=== PATIENT | male | born 1960 | race Caucasian/White ===

== ENCOUNTER → 2018-04-25 06:58 | Outpatient (CLI) | payer OTHER, MEDICAID, SELFPAY ==
[2018-04-25 08:01] LABS: INR 3.5 (0.9-1.3); Prothrombin Time 37.8 SECONDS (10.1-12.7)
== END ==
PROVIDERS: Family Provider Family Medicine; PCP Family Medicine; Visit Provider Family Medicine
DX: D68.51 Activated protein C resistance (principal); Z79.01 Long term (current) use of anticoagulants
CPT/HCPCS: 36415; 85610

== ENCOUNTER → 2018-05-21 07:56 | Outpatient (CLI) | payer OTHER, MEDICAID, SELFPAY ==
--- NOTE | 2018-05-21 07:58 | DI.US.S_ITS ---
PROCEDURE: US PERIPH VENOUS LOW EXTREM RT INDICATIONS: THROMBOEMBOLISM OF DEEP VEINS RIGHT LOWER EXTREMIT TECHNIQUE: Real-time imaging, as well as color and pulse Doppler interrogation, were performed of the lower extremity deep veins from the inguinal ligament to the popliteal fossa. COMPARISON: None. FINDINGS: The deep veins in the greater saphenous and common femoral and profunda femoris region are normally compressible, and free of intraluminal thrombus. Color and pulse Doppler demonstrate normal phasic intraluminal flow in these vessels. Within the superficial femoral vein there is occlusion, with collateral flow beyond the area of occlusion, indicating likelihood of chronic venous thrombosis rather than acute as cause of this appearance. The popliteal vein is patent. IMPRESSION: Superficial femoral vein occlusive thrombus, with collateral flow crossing the area of deep vein occlusion. The appearance is more likely chronic than acute, but please correlate clinically to assist in differentiating between these possibilities. Dictated by: Dong Tirado M.D. on 05/21/2018 at 9:34 Approved by: Dong Tirado M.D. on 05/21/2018 at 9:36
== END ==
PROVIDERS: Family Provider Family Medicine; PCP Family Medicine; Visit Provider Family Medicine
DX: I82.411 Acute embolism and thrombosis of right femoral vein (principal); R25.2 Cramp and spasm
CPT/HCPCS: 93971

== ENCOUNTER 2018-06-01 09:01 | Emergency (ER) | payer OTHER, MEDICAID, SELFPAY ==
[2018-06-01 09:10] VITALS: BP 145/74; PULSE 69; RESP 16; TEMP 36.9; O2SAT 100
--- NOTE | 2018-06-01 10:06 | ED.EYEPROB ---
HPI - Eye Problem General Chief complaint: Eye Problems Stated complaint: SWOLLEN RIGHT EYE, PAIN IN EYE Time Seen by Provider: 06/01/18 09:05 Source: patient Mode of arrival: ambulatory Limitations: no limitations History of Present Illness HPI Narrative: 57-year-old male here for evaluation of right eye discomfort. Patient states that on Monday of this week he was sitting on his couch and had a sudden onset of here today miramontes in his eye. States that it continued for several days. At points had a foreign body sensation but at other points of was just more of an irritation and watery eye. Went to the walk-in clinic yesterday where he states that he was given a prescription for ?eye drops? and a oral antibiotic. He states that his insurance did not cover the eye drop so he did not fill that. He did take 2 doses of the oral antibiotics. He does not know the names of either of these medications. States that his symptoms have worsened. He states that yesterday at the walk-in clinic they did notice a ?black spot? in his eye that they could not get off. No photophobia. Does have some sinus congestion secondary to allergies. Related Data Previous Rx's Medication Instructions Recorded warfarin [Coumadin] 0 PO SEE INSTRUCTIONS #125 tab 04/09/18 olopatadine 0.1 % eye drops 1 drop EYE-RIGHT BID #5 ml 05/31/18 sulfamethoxazole 800 2 tab PO BID 10 Days #40 tab 05/31/18 mg-trimethoprim 160 mg tablet erythromycin 0.5 inch EYE-RIGHT QID 3 Days #1 06/01/18 gram Allergies Allergy/AdvReac Type Severity Reaction Status Date / Time No Known Drug Allergies Allergy Verified 05/31/18 17:22 Review of Systems Constitutional Denies fatigue, Denies fever(s) and Denies headache(s) Eyes Comments: Irritation in the right eye Water right eye Red right eye No left eye symptoms No foreign body sensation right eye ENT Ears, Nose, Mouth, and Throat: Denies headache(s), Reports nasal congestion, Denies nasal discharge and Denies sore throat Cardiovascular Denies dyspnea Respiratory Denies dyspnea Integumentary/Breasts Denies lesions and Denies rash Neurologic Denies headache(s) Endocrine Denies fatigue Hematologic/Lymphatic Denies easy bleeding and Denies easy bruising [facility] Medical History Anemia (Chronic ~2007) Chronic back pain (Chronic ~1979) DVT (deep venous thrombosis) (Chronic ~2006) Factor V Leiden mutation (Chronic ~2007) Hemorrhoids (Chronic) Low back pain (Chronic) Low testosterone (Chronic ~2007) Malabsorption (Chronic) Seasonal allergies (Chronic) Surgical History Gynecomastia (Resolved ~1997) Status post bypass gastrojejunostomy (Resolved ~11/04/05) Anesthesia (Inactive) Status post hemorrhoidectomy (~2012) Status post laminectomy (~1997) Status post thoracotomy (~1963) Family History Father Age: 81 Tobacco abuse Alcohol abuse Prostate cancer Mother Age: 80 Parkinsons Blepharospasm Osteoarthritis Arias's palsy Leukemia Macular degeneration Grandfather Stroke Sister Age: 58 Stroke Crohn disease Family/Other No problems noted. Exam Initial Vital Signs Initial Vital Signs: Vital Signs Temperature 98.5 F 06/01/18 09:10 Pulse Rate 69 06/01/18 09:10 Respiratory Rate 16 06/01/18 09:10 Blood Pressure 145/74 H 06/01/18 09:10 Pulse Oximetry 100 06/01/18 09:10 Const General: cooperative, healthy appearing, comfortable, well developed, well groomed and No acute distress Orientation: alert, awake and oriented x3 HENMT Head: normal to inspection and normocephalic Ears: TM's normal bilaterally Nose: external nose normal Mouth: oral mucosae normal Throat: posterior oropharynx normal Eyes Other: Left eye unremarkable Interocular pressure left eye 22 Interocular pressure right eye 18 Extraocular muscles intact Pupil equal round reactive to light bilaterally equal bilaterally 4 mm No photophobia right or left eye No consensual photophobia No foreign body noted in the right eye under the lower eyelid or upper eyelid with eversion No uptake on the right cornea with fluorescein staining Patient does have a black speck on the right eye at the 5 o'clock position. This is visualized under the slit lamp. Was unable to remove it with a cotton tip applicator. Was able to remove a small piece of metal with a 25 gauge needle. Patient tolerated the procedure well. Patient reported almost complete resolution of symptoms after tetracaine drops. There was a very small residual rust ring on the right eye after removal of this foreign body. Neck Neck: normal visual inspection Lymphatic: No lymphadenopathy Resp Effort & Inspection: normal respiratory effort Skin Lesions: no lesions Rashes: no rashes Neuro General: alert, awake and oriented x3 Cranial Nerves: CN's II-XI intact bilaterally Cognition: normal cognition Speech: speech normal Psych Appearance: grossly normal, well kempt and not disheveled Procedures Foreign Body EYE Time Out performed: Yes Location: eye (R) Topical anesthetic used: proparacaine Foreign body: metal Evidence of corneal penetration: No Technique: cotton tip swab and needle Procedure performed under: slit-lamp Post-procedure medication: ophthalmic antibiotic Patient tolerated procedure: well and no complications Complications: residual rust ring Course Orders Ordered: Discontinued Medications Erythromycin (Erythromycin Ophth Oint) 1 applic EYE-RIGHT NOW ONE Stop: 06/01/18 10:14 Proparacaine HCl (Parcaine 0.5% Ophth Shannon) 1 drops EYE-RIGHT NOW ONE Stop: 06/01/18 10:12 Last Admin: 06/01/18 10:14 Dose: 1 drop Tetracaine HCl (Pontocaine 0.5% Ophth) 1 drops EYE-RIGHT Q5MIN PRN PRN Reason: Pain, Mild (1-3) Vital Signs - 8 hr 06/01/18 09:10 Temperature 98.5 F Pulse Rate 69 Respiratory Rate 16 Blood Pressure 145/74 H Pulse Oximetry 100 MDM - Eye Problem MDM Narrative Medical decision making narrative: Patient with a foreign body noted on the right cornea. This was removed with a 25 gauge needle. There does appear to be a very small residual rust ring. I discussed the case with Dr. pollock with Ophthalmology states that she has not approved see [facility] patient's. She states that if the rust rings very small then there is the option of putting the patient on topical antibiotics and having him follow up. I do feel that this is a very small rust ring. Patient does report improvement of his symptoms. Erythromycin ointment was placed here in the ER. He was instructed to stop his oral antibiotics. Will give him prescription for the erythromycin ointment. He was given return precautions. He expressed understanding and agreement with plan. Discharge Plan Departure Patient Disposition: Home, Self-Care Clinical Impression: Acute foreign body of right eye Instructions: DI for Corneal Foreign Body-Eye Activity Restrictions/Additional Instructions: You can stop the oral antibiotics that you were given from the walk-in clinic. Start the ointment that she were given today. Recommend that you contact your insurance company to discuss follow-up with and approved brick siding applicator. Return to the emergency department for any new or worsening symptoms Prescriptions: New erythromycin 5 mg/gram (0.5 %) ointment 0.5 inch EYE-RIGHT QID 3 Days Qty: 1 RF: 0 No Action sulfamethoxazole-trimethoprim [Bactrim DS] 800-160 mg tablet 2 tab PO BID 10 Days Qty: 40 RF: 0 olopatadine [Patanol] 0.1 % drops 1 drop EYE-RIGHT BID Qty: 5 RF: 0 warfarin [Coumadin] 5 mg tablet PO SEE INSTRUCTIONS Qty: 125 RF: 0
[2018-06-01] MEDS: PROPARACAINE 0.5% OPHTH SOL 1 DROPS EYE-RIGHT (10:14)
[2018-06-01] MEDS: ERYTHROMYCIN OPHTH 1 GM OINT 1 APPLIC EYE-RIGHT (10:17)
[2018-06-01 10:42] VITALS: BP 136/80; PULSE 61; RESP 14; O2SAT 100
== END 2018-06-01 10:46 | disposition home or self-care (01) ==
PROVIDERS: Emergency Provider Emergency Medicine; Family Provider Family Medicine; PCP Family Medicine
DX: T15.91XA Foreign body on external eye, part unspecified, right eye, initial encounter (principal)
CPT/HCPCS: 99283

== ENCOUNTER → 2018-07-10 06:57 | Outpatient (CLI) | payer OTHER, MEDICAID, SELFPAY ==
[2018-07-10 08:25] LABS: INR 2.9 (0.9-1.3); Prothrombin Time 32.6 SECONDS (10.1-12.7)
[2018-07-10 08:38] LABS: Add Manual Diff / Slide Review NO; Basophils Percent Auto 1.4 % (0-2); Eosinophils Percent Auto 6.7 % (2-4); Hematocrit 38.8 % (41-53); Hemoglobin 12.9 g/dL (13.5-17.5); Lymphocytes Percent Auto 30.2 % (25-40); Mean Corpuscular HGB Conc 33.2 % (30-36); Mean Corpuscular Hemoglobin 31.2 PG (26-34); Mean Corpuscular Volume 93.9 fL (80-100); Monocytes Percent Auto 13.4 % (3-14); Neutrophils Absolute Auto 1900 /uL (3000-5900); Neutrophils Percent Auto 48.3 % (50-75); Platelet Count 217 X10^3/uL (150-400); Red Blood Cell Count 4.13 X10^6/uL (4.5-5.9); Red Cell Distribution Width 14.1 % (11.6-14.8); White Blood Cell Count 3.9 X10^3/uL (4.5-11.0)
[2018-07-10 10:13] LABS: Alanine Aminotransferase 22 IU/L (21-72); Albumin 4.2 g/dL (3.5-5.0); Albumin Globulin Ratio 1.9 (1.0-2.8); Alkaline Phosphatase 55 U/L (38-126); Aspartate Aminotransferase 32 IU/L (17-59); BUN Creatinine Ratio 27.5 (6-22); Bilirubin Total 0.3 mg/dL (0.2-1.3); Blood Urea Nitrogen 22 mg/dL (9-20); Calcium 9.3 mg/dL (8.4-10.2); Carbon Dioxide 27 mmol/L (22-32); Chloride 103 mmol/L (98-107); Estimated Glomerular Filt Rate > 60.0 mL/min (>60); Globulin 2.2 g/dL (1.7-4.1); Glucose 93 mg/dL (70-100); HEMOLYSIS < 15 (0-50); Sodium 141 mmol/L (137-145); Total Protein 6.4 g/dL (6.3-8.2)
[2018-07-10 10:14] LABS: BUN Creatinine Ratio 31.4 (6-22); Blood Urea Nitrogen 22 mg/dL (9-20); Carbon Dioxide 29 mmol/L (22-32); Chloride 104 mmol/L (98-107); Estimated Glomerular Filt Rate > 60.0 mL/min (>60); Glucose 97 mg/dL (70-100); HEMOLYSIS < 15 (0-50); Magnesium 2.1 mg/dL (1.6-2.3); Sodium 140 mmol/L (137-145)
[2018-07-10 10:15] LABS: Potassium 5.6 mmol/L (3.4-5.1)
[2018-07-10 10:16] LABS: Potassium 5.7 mmol/L (3.4-5.1)
[2018-07-10 10:44] LABS: Calcium 9.2 mg/dL (8.4-10.2)
[2018-07-12 11:49] LABS: Immunoglobulin A 190 mg/dL (81-463); Immunoglobulin G, Quantitative 484 mg/dL (694-1618)
[2018-07-12 13:28] LABS: Free Kappa Light Chain 304.9 mg/L (3.3-19.4); Free Kappa/ Lambda Ratio 31.96 (0.26-1.65); Free Lambda 9.5 mg/L (5.7-26.3)
[2018-07-13 00:40] LABS: Albumin 4.4 g/dL (3.8-4.8); Alpha 1 Globulin 0.3 g/dL (0.2-0.3); Alpha 2 Globulin 0.7 g/dL (0.5-0.9); Beta 1 Globulin 0.4 g/dL (0.4-0.6); Gamma Globulin 0.4 g/dL (0.8-1.7); Protein, Total 6.6 g/dL (6.1-8.1)
[2018-07-13 10:17] LABS: Beta-2-Microglobulin 1.76 mg/L (< 2.52)
== END ==
PROVIDERS: Internal Medicine Hematology & Oncology; PCP Family Medicine; Visit Provider Family Medicine
DX: D47.2 Monoclonal gammopathy (principal); I82.409 Acute embolism and thrombosis of unspecified deep veins of unspecified lower extremity; R25.2 Cramp and spasm; D68.51 Activated protein C resistance; Z79.01 Long term (current) use of anticoagulants
CPT/HCPCS: 36415; 80048; 80053; 82232; 82784; 83735; 83883; 84155; 84165; 85025; 85610

== ENCOUNTER → 2018-07-21 09:41 | Outpatient (CLI) | payer OTHER, MEDICAID, SELFPAY ==
[2018-07-21 11:52] LABS: BUN Creatinine Ratio 21.3 (6-22); Blood Urea Nitrogen 17 mg/dL (9-20); Calcium 9.2 mg/dL (8.4-10.2); Carbon Dioxide 31 mmol/L (22-32); Chloride 101 mmol/L (98-107); Estimated Glomerular Filt Rate > 60.0 mL/min (>60); Glucose 88 mg/dL (70-100); HEMOLYSIS < 15 (0-50); Potassium 4.9 mmol/L (3.4-5.1); Sodium 140 mmol/L (137-145)
== END ==
PROVIDERS: Family Provider Family Medicine; PCP Family Medicine; Visit Provider Family Medicine
DX: E78.5 Hyperlipidemia, unspecified (principal); D64.9 Anemia, unspecified; D47.2 Monoclonal gammopathy; D68.51 Activated protein C resistance; Z79.01 Long term (current) use of anticoagulants; E87.5 Hyperkalemia
CPT/HCPCS: 36415; 80048

== ENCOUNTER 2018-07-26 08:14 | Oncology outpatient (ONC) | payer OTHER, MEDICAID, SELFPAY ==
--- NOTE | 2018-07-26 07:52 | P.PNONC_ITS ---
Assessment and Plan (1) Monoclonal gammopathy of undetermined significance Current visit: No Status: Acute 07/26/18 07:52 1. Longstanding history of borderline/normochromic/normocytic anemia. Observation only. Remains stable with hemoglobin 12.9 hematocrit 38.8 MCV 93.9. 2. 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 Serum free light chain remains positive however very stable with a kappa lambda ratio of 31.96, down from previous 39, 48. IgG 484. CMP unremarkable. 3. Known history of hereditary thrombophilia. 4. Prior deep venous thrombosis (DVT) in his right lower extremity years ago. On maintenance Coumadin managed by primary care provider. 5. Concurrent factor V Leiden mutation. 6. Last colonoscopy in 2015 (one small polyp identified/no biopsy or removal, because of a prolonged ProTime). September 19, 2017 with plan to repeat again in 3 years. 7. Prior gastric outlet obstruction surgery, 12+ years ago, resulting in removal of a small segment of his proximal small bowel. No acute issues with bowels. The patient remains quite stable today, no clinical signs or symptoms to suggest MGUS is transitioning into more acute disorder. I reviewed red flags with the patient today. Return to clinic in 6 months time for provider visit, CBC, CMP, serum free light chains, SPEP, beta 2 microglobulin. 07/26/18 09:00 07/26/18 09:02 PN -Subjective Interval history: 1. Longstanding history of borderline/normochromic/normocytic anemia. Observation only. 2. 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 3. Known history of hereditary thrombophilia. 4. Prior deep venous thrombosis (DVT) in his right lower extremity years ago. On maintenance Coumadin. 5. Concurrent factor V Leiden mutation. 6. Last colonoscopy in 2015 (one small polyp identified/no biopsy or removal, because of a prolonged ProTime). Repeat colonoscopy scheduled for September 19, 2017. 7. Prior gastric outlet obstruction surgery, 12+ years ago, resulting in removal of a small segment of his proximal small bowel. Kush presents today for routine triage. He has no complaints on exam today whatsoever. Overall feeling quite well. He does continue to struggle with chronic fatigue he states this is been ongoing since his abdominal surgery. No acute changes in that regard. 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 No night sweats. No recent illnesses or infections. No cough, fever, chills. No nausea, abdominal pain. Appetite is stable, weight is stable. No issue with bladder or bowels. No unexplained bleeding or bruising PCP Dr schuler manages Factor 5 and coumadin Home Medications and Allergies Home Medications Medication Instructions Recorded Confirmed Type warfarin 5 mg tablet See Label Instructions .ROUTE 07/24/18 Rx .COMPLEX #125 tab Allergies Allergy/AdvReac Type Severity Reaction Status Date / Time No Known Drug Allergies Allergy Verified 05/31/18 17:22 Exam - Constitutional positive no acute distress, positive thin - Routine HEENT Exam ENT: Present: mucous membranes moist, oropharynx clear - Routine Neck Exam Present: supple. Absent: lymphadenopathy - Routine Chest/Breast/Axilla Exam Axillae: Absent: lymphadenopathy, mass, tenderness - Routine Respiratory Exam Present: Clear to auscultation bilaterally. Absent: rales, rhonchi, wheezes - Routine Cardiovascular Exam Present: RRR, S1, S2. Absent: murmur, gallop, JVD - Routine Abdominal Exam Present: soft, normoactive bowel sounds. Absent: tenderness, distended, organomegaly, mass - Routine Extremities Exam Absent: edema, calf tenderness - Routine Skin Exam Present: intact. Absent: petechiae, rash - Routine Neurological Exam Present: alert, oriented X3 - Routine Psychiatric Exam Present: normal affect
[2018-07-26 08:41] VITALS: BP 137/77; PULSE 56; RESP 18; TEMP 37; O2SAT 100
== END 2018-08-01 11:13 | disposition home or self-care (01) ==
LOC: ONC 08:18
PROVIDERS: Family Provider Family Medicine; PCP Family Medicine; Visit Provider Nurse Practitioner Gerontology
DX: D68.51 Activated protein C resistance (principal); R53.82 Chronic fatigue, unspecified; Z86.718 Personal history of other venous thrombosis and embolism; Z79.01 Long term (current) use of anticoagulants
CPT/HCPCS: 99214

== ENCOUNTER → 2018-10-29 08:23 | Outpatient (CLI) | payer OTHER, MEDICAID, SELFPAY ==
[2018-10-29 09:16] LABS: INR 2.7 (0.9-1.3); Prothrombin Time 31.9 SECONDS (10.1-12.7)
== END ==
PROVIDERS: PCP Family Medicine; Visit Provider Family Medicine
DX: D68.51 Activated protein C resistance (principal)
CPT/HCPCS: 36415; 85610

== ENCOUNTER → 2019-01-16 08:29 | Outpatient (CLI) | payer OTHER, MEDICAID, SELFPAY ==
[2019-01-16 09:08] LABS: Add Manual Diff / Slide Review NO; Basophils Absolute Auto 100 /uL (0-100); Basophils Percent Auto 1.4 % (0-2); Eosinophils Absolute Auto 300 /uL (0-450); Hematocrit 39.2 % (41-53); Hemoglobin 12.9 g/dL (13.5-17.5); Lymphocytes Absolute Auto 1100 /uL (1100-4500); Lymphocytes Percent Auto 25.7 % (25-40); Mean Corpuscular HGB Conc 32.9 % (30-36); Mean Corpuscular Hemoglobin 30.8 PG (26-34); Mean Corpuscular Volume 93.6 fL (80-100); Monocytes Absolute Auto 500 /uL (0-900); Monocytes Percent Auto 11.4 % (3-14); Neutrophils Absolute Auto 2200 /uL (1500-7000); Neutrophils Percent Auto 53.5 % (50-75); Platelet Count 228 X10^3/uL (150-400); Red Blood Cell Count 4.19 X10^6/uL (4.5-5.9); Red Cell Distribution Width 14.7 % (11.6-14.8); White Blood Cell Count 4.1 X10^3/uL (4.5-11.0)
[2019-01-16 09:17] LABS: INR 1.4 (0.9-1.3); Prothrombin Time 15.7 SECONDS (10.1-12.7)
[2019-01-16 09:33] LABS: Alanine Aminotransferase 41 IU/L (21-72); Albumin 4.9 g/dL (3.5-5.0); Albumin Globulin Ratio 1.7 (1.0-2.8); Alkaline Phosphatase 61 U/L (38-126); Aspartate Aminotransferase 49 IU/L (17-59); BUN Creatinine Ratio 27.5 (6-22); Bilirubin Total 0.6 mg/dL (0.2-1.3); Blood Urea Nitrogen 22 mg/dL (9-20); Calcium 9.3 mg/dL (8.4-10.2); Carbon Dioxide 27 mmol/L (22-32); Chloride 101 mmol/L (98-107); Estimated Glomerular Filt Rate > 60.0 mL/min (>60); Globulin 2.9 g/dL (1.7-4.1); Glucose 90 mg/dL (80-110); HEMOLYSIS < 15 (0-50); Potassium 4.5 mmol/L (3.4-5.1); Sodium 138 mmol/L (137-145); Total Protein 7.8 g/dL (6.3-8.2)
[2019-01-19 14:28] LABS: Albumin 4.4 g/dL (3.8-4.8); Alpha 1 Globulin 0.3 g/dL (0.2-0.3); Alpha 2 Globulin 0.7 g/dL (0.5-0.9); Beta 1 Globulin 0.4 g/dL (0.4-0.6); Free Kappa Light Chain 324.8 mg/L (3.3-19.4); Free Kappa/ Lambda Ratio 41.43 (0.26-1.65); Free Lambda 7.8 mg/L (5.7-26.3); Gamma Globulin 0.5 g/dL (0.8-1.7); Protein, Total 6.7 g/dL (6.1-8.1)
[2019-01-19 16:03] LABS: Beta-2-Microglobulin 1.74 mg/L (< 2.52)
== END ==
PROVIDERS: PCP Family Medicine; Visit Provider Nurse Practitioner Gerontology
DX: D47.2 Monoclonal gammopathy (principal); D68.51 Activated protein C resistance; Z79.01 Long term (current) use of anticoagulants
CPT/HCPCS: 36415; 80053; 82232; 83883; 84155; 84165; 85025; 85610

== ENCOUNTER → 2019-04-06 08:28 | Outpatient (CLI) | payer OTHER, MEDICAID, SELFPAY ==
[2019-04-06 08:50] LABS: Add Manual Diff / Slide Review NO; Basophils Absolute Auto 0 /uL (0-100); Basophils Percent Auto 1.2 % (0-2); Eosinophils Absolute Auto 300 /uL (0-450); Eosinophils Percent Auto 7.7 % (2-4); Hematocrit 35.2 % (41-53); Hemoglobin 11.9 g/dL (13.5-17.5); Lymphocytes Absolute Auto 800 /uL (1100-4500); Lymphocytes Percent Auto 23.2 % (25-40); Mean Corpuscular Hemoglobin 31.2 PG (26-34); Monocytes Absolute Auto 500 /uL (0-900); Neutrophils Absolute Auto 1900 /uL (1500-7000); Neutrophils Percent Auto 54.9 % (50-75); Platelet Count 306 X10^3/uL (150-400); Red Blood Cell Count 3.82 X10^6/uL (4.5-5.9); Red Cell Distribution Width 14.5 % (11.6-14.8); White Blood Cell Count 3.5 X10^3/uL (4.5-11.0)
[2019-04-06 08:57] LABS: INR 2.4 (0.9-1.3); Prothrombin Time 27.5 SECONDS (10.1-12.7)
[2019-04-06 09:20] LABS: Alanine Aminotransferase 24 IU/L (21-72); Albumin 4.3 g/dL (3.5-5.0); Albumin Globulin Ratio 1.9 (1.0-2.8); Alkaline Phosphatase 68 U/L (38-126); Aspartate Aminotransferase 25 IU/L (17-59); BUN Creatinine Ratio 28.6 (6-22); Bilirubin Total 0.3 mg/dL (0.2-1.3); Blood Urea Nitrogen 20 mg/dL (9-20); Calcium 9.3 mg/dL (8.4-10.2); Carbon Dioxide 28 mmol/L (22-32); Chloride 104 mmol/L (98-107); Estimated Glomerular Filt Rate > 60.0 mL/min (>60); Globulin 2.3 g/dL (1.7-4.1); Glucose 94 mg/dL (80-110); HEMOLYSIS < 15 (0-50); Potassium 4.7 mmol/L (3.4-5.1); Sodium 140 mmol/L (137-145); Total Protein 6.6 g/dL (6.3-8.2)
[2019-04-09 13:59] LABS: Beta-2-Microglobulin 1.66 mg/L (< 2.52)
[2019-04-09 15:06] LABS: Immunoglobulin A 204 mg/dL (81-463); Immunoglobulin G, Quantitative 550 mg/dL (694-1618); Immunoglobulin M, Quantitative 35 mg/dL (48-271)
[2019-04-09 16:48] LABS: Free Kappa Light Chain 335.1 mg/L (3.3-19.4); Free Kappa/ Lambda Ratio 38.48 (0.26-1.65); Free Lambda 8.7 mg/L (5.7-26.3)
[2019-04-10 15:08] LABS: Albumin 3.9 g/dL (3.8-4.8); Alpha 1 Globulin 0.3 g/dL (0.2-0.3); Alpha 2 Globulin 0.8 g/dL (0.5-0.9); Beta 1 Globulin 0.4 g/dL (0.4-0.6); Gamma Globulin 0.4 g/dL (0.8-1.7); Protein, Total 6.3 g/dL (6.1-8.1)
== END ==
PROVIDERS: Nurse Practitioner Gerontology; PCP Family Medicine; Visit Provider Family Medicine
DX: D64.9 Anemia, unspecified (principal); D68.51 Activated protein C resistance; Z79.01 Long term (current) use of anticoagulants
CPT/HCPCS: 36415; 80053; 82232; 82784; 83883; 84155; 84165; 85025; 85610

== ENCOUNTER → 2019-07-13 07:33 | Outpatient (CLI) | payer OTHER, MEDICAID, SELFPAY ==
[2019-07-13 08:59] LABS: Add Manual Diff / Slide Review NO; Basophils Absolute Auto 100 /uL (0-100); Basophils Percent Auto 1.3 % (0-2); Eosinophils Absolute Auto 300 /uL (0-450); Hematocrit 38.1 % (41-53); Hemoglobin 12.7 g/dL (13.5-17.5); Lymphocytes Absolute Auto 1000 /uL (1100-4500); Lymphocytes Percent Auto 24.8 % (25-40); Mean Corpuscular HGB Conc 33.3 % (30-36); Mean Corpuscular Hemoglobin 30.7 PG (26-34); Mean Corpuscular Volume 92.1 fL (80-100); Monocytes Absolute Auto 500 /uL (0-900); Monocytes Percent Auto 11.7 % (3-14); Neutrophils Absolute Auto 2200 /uL (1500-7000); Neutrophils Percent Auto 55.2 % (50-75); Platelet Count 195 X10^3/uL (150-400); Red Blood Cell Count 4.14 X10^6/uL (4.5-5.9); Red Cell Distribution Width 15.6 % (11.6-14.8); White Blood Cell Count 4.1 X10^3/uL (4.5-11.0)
[2019-07-13 09:13] LABS: HEMOLYSIS < 15 (0-50); Iron 62 ug/dL (49-181)
[2019-07-13 09:24] LABS: Percent Iron Saturation 18 % (20-50); Total Iron Binding Capacity 341 ug/dL (261-462); Transferrin 257 mg/dL (206-381)
[2019-07-13 09:51] LABS: Ferritin 44.5 ng/mL (17.9-464)
== END ==
PROVIDERS: PCP Family Medicine; Visit Provider Family Medicine
DX: D64.9 Anemia, unspecified (principal)
CPT/HCPCS: 36415; 82728; 83540; 83550; 85025

== ENCOUNTER → 2019-07-23 07:54 | Outpatient (CLI) | payer OTHER, MEDICAID, SELFPAY ==
[2019-07-23 08:56] LABS: INR 2.6 (0.9-1.3); Prothrombin Time 30.7 SECONDS (10.1-12.7)
== END ==
PROVIDERS: PCP Family Medicine; Visit Provider Family Medicine
DX: D68.51 Activated protein C resistance (principal); Z79.01 Long term (current) use of anticoagulants
CPT/HCPCS: 36415; 85610

== ENCOUNTER → 2019-10-26 09:48 | Outpatient (CLI) | payer OTHER, MEDICAID, SELFPAY ==
[2019-10-26 11:15] LABS: INR 3.9 (0.9-1.3); Prothrombin Time 46.2 SECONDS (10.1-12.7)
== END ==
PROVIDERS: PCP Family Medicine; Visit Provider Family Medicine
DX: D68.51 Activated protein C resistance (principal); Z79.01 Long term (current) use of anticoagulants
CPT/HCPCS: 36415; 85610

== ENCOUNTER → 2020-01-27 08:33 | Outpatient (CLI) | payer OTHER, MEDICAID, SELFPAY ==
[2020-01-27 09:35] LABS: Add Manual Diff / Slide Review NO; Basophils Absolute Auto 0 /uL (0-100); Eosinophils Absolute Auto 400 /uL (0-450); Eosinophils Percent Auto 7.8 % (2-4); Hematocrit 38.2 % (41-53); Hemoglobin 12.9 g/dL (13.5-17.5); Lymphocytes Absolute Auto 1100 /uL (1100-4500); Lymphocytes Percent Auto 23.9 % (25-40); Mean Corpuscular HGB Conc 33.7 % (30-36); Mean Corpuscular Hemoglobin 31.2 PG (26-34); Mean Corpuscular Volume 92.7 fL (80-100); Monocytes Absolute Auto 600 /uL (0-900); Monocytes Percent Auto 11.9 % (3-14); Neutrophils Absolute Auto 2600 /uL (1500-7000); Neutrophils Percent Auto 55.4 % (50-75); Platelet Count 228 X10^3/uL (150-400); Red Blood Cell Count 4.12 X10^6/uL (4.5-5.9); Red Cell Distribution Width 14.5 % (11.6-14.8); White Blood Cell Count 4.7 X10^3/uL (4.5-11.0)
[2020-01-27 09:39] LABS: INR 3.1 (0.9-1.3); Prothrombin Time 35.1 SECONDS (10.1-12.7)
[2020-01-27 09:45] LABS: Alanine Aminotransferase 17 IU/L (<50); Albumin 4.7 g/dL (3.5-5.0); Albumin Globulin Ratio 1.6 (1.0-2.8); Alkaline Phosphatase 66 U/L (38-126); Aspartate Aminotransferase 35 IU/L (17-59); BUN Creatinine Ratio 22.9 (6-22); Bilirubin Total 0.5 mg/dL (0.2-1.3); Blood Urea Nitrogen 16 mg/dL (9-20); Calcium 9.2 mg/dL (8.4-10.2); Carbon Dioxide 27 mmol/L (22-32); Chloride 101 mmol/L (98-107); Estimated Glomerular Filt Rate > 60.0 mL/min (>60); Globulin 2.9 g/dL (1.7-4.1); Glucose 100 mg/dL (80-110); HEMOLYSIS < 15 (0-50); Lactate Dehydrogenase 587 U/L (313-618); Potassium 4.1 mmol/L (3.4-5.1); Sodium 137 mmol/L (137-145); Total Protein 7.6 g/dL (6.3-8.2)
[2020-01-28 14:14] LABS: Immunoglobulin A 228
[2020-01-28 14:19] LABS: Immunoglobulin G, Quantitative 589
[2020-01-31 14:38] LABS: Beta-2-Microglobulin 1.2; Immunoglobulin M, Quantitative 37
[2020-05-29 15:30] LABS: Free Kappa Lt Chains, Serum 398.2; Free Lambda Lt Chains,Serum 8.3
== END ==
PROVIDERS: Internal Medicine Hematology & Oncology; PCP Family Medicine; Referring Provider Family Medicine; Visit Provider Family Medicine
DX: D68.51 Activated protein C resistance (principal); Z79.01 Long term (current) use of anticoagulants; D64.9 Anemia, unspecified
CPT/HCPCS: 36415; 80053; 82232; 82784; 83615; 83883; 85025; 85610

== ENCOUNTER → 2020-03-31 08:31 | Outpatient (CLI) | payer OTHER, MEDICAID, SELFPAY ==
[2020-03-31 09:38] LABS: INR 3.6 (0.9-1.3); Prothrombin Time 40.7 SECONDS (10.1-12.7)
== END ==
PROVIDERS: PCP Family Medicine; Referring Provider Family Medicine; Visit Provider Family Medicine
DX: D68.51 Activated protein C resistance (principal); Z79.01 Long term (current) use of anticoagulants
CPT/HCPCS: 36415; 85610

== ENCOUNTER → 2020-09-01 11:47 | Outpatient (CLI) | payer OTHER, MEDICAID, SELFPAY ==
[2020-09-01 12:44] LABS: INR 3.4 (0.9-1.3); Prothrombin Time 38.9 SECONDS (10.1-12.7)
== END ==
PROVIDERS: PCP Family Medicine; Referring Provider Family Medicine; Visit Provider Family Medicine
DX: D68.51 Activated protein C resistance (principal); Z79.01 Long term (current) use of anticoagulants; Z86.718 Personal history of other venous thrombosis and embolism
CPT/HCPCS: 36415; 85610

== ENCOUNTER → 2020-10-03 08:23 | Outpatient (CLI) | payer OTHER, MEDICAID, SELFPAY ==
[2020-10-03 09:25] LABS: INR 1.9 (0.9-1.3); Prothrombin Time 22.1 SECONDS (10.1-12.7)
== END ==
PROVIDERS: PCP Family Medicine; Referring Provider Family Medicine; Visit Provider Family Medicine
DX: D68.51 Activated protein C resistance (principal)
CPT/HCPCS: 36415; 85610

== ENCOUNTER → 2021-01-08 08:54 | Outpatient (CLI) | payer OTHER, MEDICAID, SELFPAY ==
[2021-01-08 09:54] LABS: Add Manual Diff / Slide Review NO; Basophils Absolute Auto 100 /uL (0-100); Basophils Percent Auto 1.2 % (0-2); Eosinophils Absolute Auto 300 /uL (0-450); Eosinophils Percent Auto 6.9 % (2-4); Hematocrit 36.8 % (41-53); Hemoglobin 12.4 g/dL (13.5-17.5); Lymphocytes Absolute Auto 1000 /uL (1100-4500); Mean Corpuscular HGB Conc 33.7 % (30-36); Mean Corpuscular Hemoglobin 31.1 PG (26-34); Mean Corpuscular Volume 92.2 fL (80-100); Monocytes Absolute Auto 600 /uL (0-900); Monocytes Percent Auto 12.5 % (3-14); Neutrophils Absolute Auto 2600 /uL (1500-7000); Neutrophils Percent Auto 57.4 % (50-75); Platelet Count 192 X10^3/uL (150-400); Red Blood Cell Count 3.99 X10^6/uL (4.5-5.9); Red Cell Distribution Width 14.1 % (11.6-14.8); White Blood Cell Count 4.6 X10^3/uL (4.5-11.0)
[2021-01-08 10:08] LABS: INR 2.4 (0.9-1.3); Prothrombin Time 27.2 SECONDS (10.1-12.7)
[2021-01-08 10:13] LABS: Alanine Aminotransferase 14 IU/L (<50); Albumin 4.4 g/dL (3.5-5.0); Albumin Globulin Ratio 1.8 (1.0-2.8); Alkaline Phosphatase 61 U/L (38-126); Aspartate Aminotransferase 31 IU/L (17-59); BUN Creatinine Ratio 29.3 (6-22); Bilirubin Total 0.3 mg/dL (0.2-1.3); Blood Urea Nitrogen 22 mg/dL (9-20); Carbon Dioxide 30 mmol/L (22-32); Chloride 102 mmol/L (98-107); Estimated Glomerular Filt Rate > 60.0 mL/min (>60); Globulin 2.5 g/dL (1.7-4.1); Glucose 97 mg/dL (80-110); HEMOLYSIS < 15 (0-50); Lactate Dehydrogenase 515 U/L (313-618); Potassium 4.4 mmol/L (3.4-5.1); Sodium 136 mmol/L (137-145); Total Protein 6.9 g/dL (6.3-8.2)
[2021-01-10 21:17] LABS: Beta-2-Microglobulin 1.6 mg/L (0.6-2.4)
[2021-01-11 14:01] LABS: Immunoglobulin A, Serum 202 mg/dL (61-437); Immunoglobulin G,Serum 516 mg/dL (603-1613); Immunoglobulin M, Serum 29 mg/dL (20-172)
[2021-01-11 15:26] LABS: Alpha-1-Globulin 0.3 g/dL (0.0-0.4); Alpha-2-Globulin 0.7 g/dL (0.4-1.0); Gamma Globulin 0.5 g/dL (0.4-1.8); Globulin Total 2.4 g/dL (2.2-3.9); Protein, Total 6.4 g/dL (6.0-8.5)
[2021-01-22 12:00] LABS: Free Lambda Lt Chains,Serum 8.7
== END ==
PROVIDERS: Family Medicine; PCP Family Medicine; Referring Provider Internal Medicine Hematology & Oncology; Visit Provider Internal Medicine Hematology & Oncology
DX: D68.51 Activated protein C resistance (principal); Z79.01 Long term (current) use of anticoagulants; D64.9 Anemia, unspecified; D47.2 Monoclonal gammopathy
CPT/HCPCS: 36415; 80053; 82232; 82784; 83615; 83883; 84155; 84165; 85025; 85610; 86334

== ENCOUNTER → 2021-04-10 08:35 | Outpatient (CLI) | payer OTHER, MEDICAID, SELFPAY ==
[2021-04-10 09:29] LABS: INR 2.7 (0.9-1.3); Prothrombin Time 30.7 SECONDS (10.1-12.7)
== END ==
PROVIDERS: PCP Family Medicine; Referring Provider Family Medicine; Visit Provider Family Medicine
DX: Z79.01 Long term (current) use of anticoagulants (principal); D68.51 Activated protein C resistance
CPT/HCPCS: 36415; 85610

== ENCOUNTER → 2021-05-08 08:26 | Outpatient (CLI) | payer OTHER, MEDICAID, SELFPAY ==
[2021-05-08 09:37] LABS: INR 2.1 (0.9-1.3); Prothrombin Time 23.5 SECONDS (10.1-12.7)
[2021-05-08 10:16] LABS: HEMOLYSIS < 15 (0-50); Iron 52 ug/dL (49-181)
[2021-05-08 10:28] LABS: Alanine Aminotransferase 14 IU/L (<50); Albumin 4.2 g/dL (3.5-5.0); Albumin Globulin Ratio 1.8 (1.0-2.8); Alkaline Phosphatase 60 U/L (38-126); Aspartate Aminotransferase 34 IU/L (17-59); BUN Creatinine Ratio 29.3 (6-22); Bilirubin Total 0.4 mg/dL (0.2-1.3); Blood Urea Nitrogen 24 mg/dL (9-20); C-Reactive Protein Quant 0.7 mg/dL (<1.0); Calcium 9.6 mg/dL (8.4-10.2); Carbon Dioxide 28 mmol/L (22-32); Chloride 106 mmol/L (98-107); Estimated Glomerular Filt Rate > 60.0 mL/min (>60); Globulin 2.3 g/dL (1.7-4.1); Glucose 99 mg/dL (80-110); HEMOLYSIS < 15 (0-50); Percent Iron Saturation 15 % (20-50); Potassium 5.1 mmol/L (3.4-5.1); Sodium 141 mmol/L (137-145); Total Iron Binding Capacity 342 ug/dL (261-462); Total Protein 6.5 g/dL (6.3-8.2); Transferrin 265 mg/dL (206-381)
[2021-05-08 10:34] LABS: Vitamin D 25 Hydroxy (D3) 38.1 ng/mL (30.0-100.0)
[2021-05-08 10:35] LABS: Free T3, Triiodothyronine Free 3.02 pg/mL (2.77-5.27); Free T4, Direct Thyroxine 0.79 ng/dL (0.78-2.19)
[2021-05-08 10:48] LABS: Thyroid Stimulating Hormone 2.07 uIU/mL (0.47-4.68)
[2021-05-08 10:56] LABS: Ferritin 29 ng/mL (18-464)
[2021-05-08 11:26] LABS: Folate 14.9 ng/mL (2.76-20.0)
== END ==
PROVIDERS: Registered Nurse Diabetes Educator; PCP Family Medicine; Referring Provider Family Medicine; Visit Provider Family Medicine
DX: D64.9 Anemia, unspecified (principal); R53.83 Other fatigue; D68.51 Activated protein C resistance; Z79.01 Long term (current) use of anticoagulants
CPT/HCPCS: 36415; 80053; 82306; 82728; 82746; 83540; 83550; 84439; 84443; 84481; 85610; 86140

== ENCOUNTER → 2021-07-10 08:27 | Outpatient (CLI) | payer OTHER, MEDICAID, SELFPAY ==
[2021-07-10 10:01] LABS: INR 2.4 (0.9-1.3); Prothrombin Time 27.4 SECONDS (10.1-12.7)
== END ==
PROVIDERS: PCP Family Medicine; Referring Provider Family Medicine; Visit Provider Family Medicine
DX: D68.51 Activated protein C resistance (principal); Z79.01 Long term (current) use of anticoagulants
CPT/HCPCS: 36415; 85610

== ENCOUNTER → 2021-10-26 08:27 | Outpatient (CLI) | payer OTHER, MEDICAID, SELFPAY ==
[2021-10-26 09:08] LABS: INR 1.6 (0.9-1.3); Prothrombin Time 17.8 SECONDS (10.1-12.7)
== END ==
PROVIDERS: PCP Family Medicine; Referring Provider Family Medicine; Visit Provider Family Medicine
DX: D68.51 Activated protein C resistance (principal); Z79.01 Long term (current) use of anticoagulants
CPT/HCPCS: 36415; 85610

== ENCOUNTER → 2021-11-09 07:22 | Outpatient (CLI) | payer OTHER, MEDICAID, SELFPAY ==
[2021-11-09 08:43] LABS: INR 2.3 (0.9-1.3); Prothrombin Time 27.2 SECONDS (10.1-12.7)
== END ==
PROVIDERS: PCP Family Medicine; Referring Provider Family Medicine; Visit Provider Family Medicine
DX: Z79.01 Long term (current) use of anticoagulants (principal)
CPT/HCPCS: 36415; 85610

== ENCOUNTER → 2021-12-25 08:52 | Outpatient (CLI) | payer OTHER, MEDICAID, SELFPAY ==
[2021-12-25 10:45] LABS: INR 3.3 (0.9-1.3); Prothrombin Time 38.5 SECONDS (10.1-12.7)
== END ==
PROVIDERS: PCP Family Medicine; Referring Provider Family Medicine; Visit Provider Family Medicine
DX: Z79.01 Long term (current) use of anticoagulants (principal)
CPT/HCPCS: 36415; 85610

== ENCOUNTER → 2022-01-12 07:57 | Outpatient (CLI) | payer OTHER, MEDICAID, SELFPAY ==
[2022-01-12 08:53] LABS: INR 1.9 (0.9-1.3); Prothrombin Time 21.1 SECONDS (10.1-12.7)
== END ==
PROVIDERS: PCP Family Medicine; Referring Provider Family Medicine; Visit Provider Family Medicine
DX: Z79.01 Long term (current) use of anticoagulants (principal)
CPT/HCPCS: 36415; 85610

== ENCOUNTER → 2022-01-26 07:57 | Outpatient (CLI) | payer OTHER, MEDICAID, SELFPAY ==
[2022-01-26 08:33] LABS: INR 2.2 (0.9-1.3); Prothrombin Time 24.4 SECONDS (10.1-12.7)
[2022-01-26 08:38] LABS: Add Manual Diff / Slide Review NO; Basophils Absolute Auto 0 /uL (0-100); Eosinophils Absolute Auto 500 /uL (0-450); Eosinophils Percent Auto 9.9 % (2-4); Hematocrit 36.1 % (41-53); Lymphocytes Absolute Auto 1200 /uL (1100-4500); Lymphocytes Percent Auto 26.7 % (25-40); Mean Corpuscular HGB Conc 33.2 % (30-36); Mean Corpuscular Hemoglobin 30.5 PG (26-34); Mean Corpuscular Volume 91.7 fL (80-100); Monocytes Absolute Auto 600 /uL (0-900); Monocytes Percent Auto 13.9 % (3-14); Neutrophils Absolute Auto 2300 /uL (1500-7000); Neutrophils Percent Auto 48.5 % (50-75); Platelet Count 227 X10^3/uL (150-400); Red Blood Cell Count 3.93 X10^6/uL (4.5-5.9); Red Cell Distribution Width 14.7 % (11.6-14.8); White Blood Cell Count 4.7 X10^3/uL (4.5-11.0)
[2022-01-26 08:39] LABS: Alanine Aminotransferase 15 IU/L (<50); Albumin 4.5 g/dL (3.5-5.0); Albumin Globulin Ratio 1.6 (1.0-2.8); Alkaline Phosphatase 57 U/L (38-126); Aspartate Aminotransferase 33 IU/L (17-59); BUN Creatinine Ratio 29.9 (6-22); Bilirubin Total 0.4 mg/dL (0.2-1.3); Blood Urea Nitrogen 23 mg/dL (9-20); Calcium 9.2 mg/dL (8.4-10.2); Carbon Dioxide 32 mmol/L (22-32); Chloride 104 mmol/L (98-107); Estimated Glomerular Filt Rate > 60.0 mL/min (>60); Globulin 2.8 g/dL (1.7-4.1); Glucose 96 mg/dL (80-110); HEMOLYSIS < 15 (0-50); Lactate Dehydrogenase 514 U/L (313-618); Potassium 4.8 mmol/L (3.4-5.1); Sodium 138 mmol/L (137-145); Total Protein 7.3 g/dL (6.3-8.2)
[2022-01-26 08:41] LABS: Cholesterol 150 mg/dL (140-199); HDL Cholesterol 59 mg/dL (40-60); LDL Cholesterol Calculated 83 mg/dL (<100); Triglycerides 38 mg/dL (35-150)
[2022-01-26 09:25] LABS: TSH w/ Reflex to FT4 1.84 uIU/mL (0.47-4.68)
[2022-01-27 15:17] LABS: Free Kappa Lt Chains, Serum 580.4 mg/L (3.3-19.4); Free Lambda Lt Chains,Serum 9.9 mg/L (5.7-26.3)
[2022-01-28 05:07] LABS: Beta-2-Microglobulin 1.6 mg/L (0.6-2.4)
[2022-01-28 13:39] LABS: Immunoglobulin A, Serum 212 mg/dL (61-437); Immunoglobulin G,Serum 598 mg/dL (603-1613); Immunoglobulin M, Serum 43 mg/dL (20-172)
[2022-01-28 16:09] LABS: Alpha-1-Globulin 0.2 g/dL (0.0-0.4); Alpha-2-Globulin 0.6 g/dL (0.4-1.0); Gamma Globulin 0.6 g/dL (0.4-1.8); Globulin Total 2.4 g/dL (2.2-3.9); Protein, Total 6.4 g/dL (6.0-8.5)
== END ==
PROVIDERS: Internal Medicine Hematology & Oncology; PCP Family Medicine; Referring Provider Family Medicine; Visit Provider Family Medicine
DX: D47.2 Monoclonal gammopathy (principal); Z79.01 Long term (current) use of anticoagulants; D64.9 Anemia, unspecified; E03.9 Hypothyroidism, unspecified
CPT/HCPCS: 36415; 80053; 80061; 82232; 82784; 83615; 83883; 84155; 84165; 84443; 85025; 85610; 86334

== ENCOUNTER → 2022-03-01 10:33 | Outpatient (CLI) | payer OTHER, MEDICAID, SELFPAY ==
--- NOTE | 2022-03-01 10:37 | DI.RAD.S_ITS ---
PROCEDURE: XR CHEST 2V INDICATIONS: mgus TECHNIQUE: 2 views of the chest were acquired. COMPARISON: [facility], CHEST 2 VIEW, 09/24/2014, 9:33. [facility], CHEST 2 VIEW, 12/24/2016, 16:26. FINDINGS: Surgical changes and devices: None. Lungs and pleura: Hyperinflation consistent with the COPD. Left apical scars. Small left pleural effusion and/or pleural scarring, unchanged. Left basilar scars and atelectasis. No pleural effusions or pneumothorax. Mediastinum: Mediastinal contours are normal. Heart size is normal. Bones and chest wall: No suspicious bony abnormalities. Soft tissues appear unremarkable. IMPRESSION: 1. No acute abnormalities. 2. Chronic small left pleural effusion or pleural scarring with left basilar scars/atelectasis. Dictated by: Ana Leblanc M.D. on 03/01/2022 at 13:41 Approved by: Ana Leblanc M.D. on 03/01/2022 at 13:43
== END ==
PROVIDERS: PCP Family Medicine; Referring Provider Internal Medicine Hematology & Oncology; Visit Provider Internal Medicine Hematology & Oncology
DX: D47.2 Monoclonal gammopathy (principal); J90 Pleural effusion, not elsewhere classified
CPT/HCPCS: 71046; 93005; 93010

== ENCOUNTER → 2022-03-22 07:26 | Outpatient (CLI) | payer OTHER, MEDICAID, SELFPAY ==
[2022-03-22 08:45] LABS: INR 3.4 (0.9-1.3); Prothrombin Time 39.9 SECONDS (10.1-12.7)
== END ==
PROVIDERS: PCP Family Medicine; Referring Provider Family Medicine; Visit Provider Family Medicine
DX: Z79.01 Long term (current) use of anticoagulants (principal)
CPT/HCPCS: 36415; 85610

== ENCOUNTER → 2022-06-11 07:42 | Outpatient (CLI) | payer OTHER, MEDICAID, SELFPAY ==
[2022-06-11 08:45] LABS: INR 1.7 (0.9-1.3); Prothrombin Time 19.7 SECONDS (10.1-12.7)
== END ==
PROVIDERS: PCP Family Medicine; Referring Provider Pediatrics; Visit Provider Pediatrics
DX: D68.51 Activated protein C resistance (principal); I82.409 Acute embolism and thrombosis of unspecified deep veins of unspecified lower extremity; Z79.01 Long term (current) use of anticoagulants
CPT/HCPCS: 36415; 85610

== ENCOUNTER → 2022-08-01 08:29 | Outpatient (CLI) | payer OTHER, MEDICAID, SELFPAY ==
[2022-08-01 11:28] LABS: INR 3.6 (0.9-1.3); Prothrombin Time 41.7 SECONDS (10.1-12.7)
== END ==
PROVIDERS: PCP Pediatrics; Referring Provider Pediatrics; Visit Provider Pediatrics
DX: Z79.01 Long term (current) use of anticoagulants (principal)
CPT/HCPCS: 36415; 85610

== ENCOUNTER → 2022-10-11 09:14 | Outpatient (CLI) | payer OTHER, MEDICAID, SELFPAY ==
[2022-10-11 09:53] LABS: Add Manual Diff / Slide Review NO; Basophils Absolute Auto 100 /uL (0-100); Basophils Percent Auto 1.1 % (0-2); Eosinophils Absolute Auto 300 /uL (0-450); Hematocrit 36.4 % (41-53); Hemoglobin 12.3 g/dL (13.5-17.5); Lymphocytes Absolute Auto 900 /uL (1100-4500); Lymphocytes Percent Auto 20.2 % (25-40); Mean Corpuscular HGB Conc 33.7 % (30-36); Mean Corpuscular Hemoglobin 30.9 PG (26-34); Mean Corpuscular Volume 91.7 fL (80-100); Monocytes Absolute Auto 600 /uL (0-900); Monocytes Percent Auto 13.6 % (3-14); Neutrophils Absolute Auto 2700 /uL (1500-7000); Neutrophils Percent Auto 59.1 % (50-75); Platelet Count 197 X10^3/uL (150-400); Red Blood Cell Count 3.97 X10^6/uL (4.5-5.9); Red Cell Distribution Width 14.6 % (11.6-14.8); White Blood Cell Count 4.6 X10^3/uL (4.5-11.0)
[2022-10-11 10:13] LABS: INR 2.6 (0.9-1.3); Prothrombin Time 30.2 SECONDS (10.1-12.7)
[2022-10-11 12:52] LABS: Alanine Aminotransferase 17 IU/L (<50); Albumin 4.4 g/dL (3.5-5.0); Albumin Globulin Ratio 1.6 (1.0-2.8); Alkaline Phosphatase 62 U/L (38-126); Aspartate Aminotransferase 33 IU/L (17-59); BUN Creatinine Ratio 27.3 (6-22); Bilirubin Total 0.3 mg/dL (0.2-1.3); Blood Urea Nitrogen 21 mg/dL (9-20); Calcium 9.2 mg/dL (8.4-10.2); Carbon Dioxide 27 mmol/L (22-32); Chloride 102 mmol/L (98-107); Estimated Glomerular Filt Rate > 60 mL/min (>60); Globulin 2.7 g/dL (1.7-4.1); Glucose 105 mg/dL (80-110); HEMOLYSIS < 15 (0-50); Lactate Dehydrogenase 227 U/L (120-246); Potassium 5.1 mmol/L (3.4-5.1); Sodium 137 mmol/L (137-145); Total Protein 7.1 g/dL (6.3-8.2)
[2022-10-13 12:18] LABS: Free Kappa Lt Chains, Serum 636.7 mg/L (3.3-19.4)
[2022-10-15 15:21] LABS: Beta-2-Microglobulin 1.4 mg/L (0.6-2.4)
== END ==
PROVIDERS: Internal Medicine Hematology & Oncology; Pediatrics; PCP Family Medicine; Referring Provider Family Medicine; Visit Provider Family Medicine
DX: B35.1 Tinea unguium (principal); D68.51 Activated protein C resistance; Z79.01 Long term (current) use of anticoagulants; D47.2 Monoclonal gammopathy
CPT/HCPCS: 36415; 80053; 82232; 83615; 83883; 85025; 85610

== ENCOUNTER → 2022-12-22 08:51 | Outpatient (CLI) | payer OTHER, MEDICAID, SELFPAY ==
[2022-12-22 10:27] LABS: INR 1.9 (0.9-1.3); Prothrombin Time 22.5 SECONDS (10.1-12.7)
== END ==
PROVIDERS: PCP Family Medicine; Referring Provider Family Medicine; Visit Provider Family Medicine
DX: Z79.01 Long term (current) use of anticoagulants (principal)
CPT/HCPCS: 36415; 85610

== ENCOUNTER → 2022-12-23 16:26 | Outpatient (CLI) | payer OTHER, MEDICAID, SELFPAY ==
--- NOTE | 2022-12-23 16:28 | DI.MRI.S_ITS ---
PROCEDURE: MR BONE MARROW INDICATIONS: multiple myeloma bone study TECHNIQUE: Noncontrast sagittal T1 spin echo and STIR through the spine; coronal T1 spin echo and STIR through the bony thorax, coronal T1 spin echo and STIR through the bony pelvis and femurs. COMPARISON: [facility], CR, XR CHEST 2V, 03/01/2022, 10:28. FINDINGS: Image quality: This examination is limited by involuntary motion artifact. Spine: All visualized vertebral bodies are normally aligned. No vertebral body compression fractures. The bone marrow demonstrates no suspicious lesions or signal abnormalities. Generalized degenerative changes are seen, which are overall worst involving the lower cervical spine and the lower lumbar spine. Moderate dextroconvex thoracic scoliosis is seen. The visualized spinal cord demonstrates normal intramedullary signal. The conus is in the expected position. No epidural or paravertebral soft tissue masses. Pelvis and hips: The bone marrow demonstrates normal signal throughout. No pelvic ring or sacral pathologic or insufficiency fractures. Physiologic amounts of hip joint fluid are present. No joint degeneration or soft tissue bursal fluid collections. Soft tissues: Volume loss is seen involving the left lung, with apparent fibrotic change superiorly. No free pelvic fluid. No pathologic pelvic or inguinal adenopathy. Visualized bowel loops appear normal in caliber. Limited images through the genitourinary tract demonstrate no abnormalities. The muscles demonstrate normal overall bulk and internal signal. IMPRESSION: No suspicious bone marrow lesions are seen. Abnormal left lung, with volume loss and apparent fibrotic change. Moderate dextroconvex thoracic scoliosis. Degenerative changes are seen, which are worst involving the lower cervical spine and the lower lumbar spine. Dictated by: Levi Sharp M.D. on 12/23/2022 at 17:36 Approved by: Levi Sharp M.D. on 12/23/2022 at 17:39
== END ==
PROVIDERS: PCP Family Medicine; Referring Provider Internal Medicine Hematology & Oncology; Visit Provider Internal Medicine Hematology & Oncology
DX: C90.00 Multiple myeloma not having achieved remission (principal); M41.9 Scoliosis, unspecified; M47.812 Spondylosis without myelopathy or radiculopathy, cervical region; M47.816 Spondylosis without myelopathy or radiculopathy, lumbar region
CPT/HCPCS: 77084

== ENCOUNTER → 2023-01-14 08:27 | Outpatient (CLI) | payer OTHER, MEDICAID, SELFPAY ==
[2023-01-14 09:50] LABS: Add Manual Diff / Slide Review NO; Basophils Absolute Auto 0 /uL (0-100); Basophils Percent Auto 0.8 % (0-2); Eosinophils Absolute Auto 300 /uL (0-450); Eosinophils Percent Auto 5.2 % (2-4); Hematocrit 39.4 % (41-53); Lymphocytes Absolute Auto 1200 /uL (1100-4500); Lymphocytes Percent Auto 21.8 % (25-40); Mean Corpuscular Hemoglobin 30.9 PG (26-34); Mean Corpuscular Volume 93.8 fL (80-100); Monocytes Absolute Auto 700 /uL (0-900); Monocytes Percent Auto 12.7 % (3-14); Neutrophils Absolute Auto 3100 /uL (1500-7000); Neutrophils Percent Auto 59.5 % (50-75); Platelet Count 217 X10^3/uL (150-400); Red Cell Distribution Width 14.5 % (11.6-14.8); White Blood Cell Count 5.3 X10^3/uL (4.5-11.0)
[2023-01-14 10:01] LABS: Alanine Aminotransferase 17 IU/L (<50); Albumin 4.8 g/dL (3.5-5.0); Albumin Globulin Ratio 1.7 (1.0-2.8); Alkaline Phosphatase 66 U/L (38-126); Aspartate Aminotransferase 32 IU/L (17-59); BUN Creatinine Ratio 30.1 (6-22); Bilirubin Total 0.4 mg/dL (0.2-1.3); Blood Urea Nitrogen 25 mg/dL (9-20); Calcium 8.9 mg/dL (8.4-10.2); Carbon Dioxide 26 mmol/L (22-32); Chloride 101 mmol/L (98-107); Estimated Glomerular Filt Rate > 60 mL/min (>60); Globulin 2.9 g/dL (1.7-4.1); Glucose 97 mg/dL (80-110); HEMOLYSIS < 15 (0-50); Potassium 4.6 mmol/L (3.4-5.1); Sodium 140 mmol/L (137-145); Total Protein 7.7 g/dL (6.3-8.2)
[2023-01-14 10:27] LABS: INR 2.1 (0.9-1.3); Prothrombin Time 24.4 SECONDS (10.1-12.7)
[2023-01-16 14:08] LABS: Free Kappa Lt Chains, Serum 635.6 mg/L (3.3-19.4); Free Lambda Lt Chains,Serum 9.3 mg/L (5.7-26.3)
[2023-01-17 11:37] LABS: Immunoglobulin A, Serum 188 mg/dL (61-437); Immunoglobulin G,Serum 600 mg/dL (603-1613); Immunoglobulin M, Serum 36 mg/dL (20-172)
[2023-01-17 13:09] LABS: Albumin 4.4 g/dL (2.9-4.4); Alpha-1-Globulin 0.2 g/dL (0.0-0.4); Alpha-2-Globulin 0.7 g/dL (0.4-1.0); Gamma Globulin 0.6 g/dL (0.4-1.8); Globulin Total 2.5 g/dL (2.2-3.9); Protein, Total 6.9 g/dL (6.0-8.5)
== END ==
PROVIDERS: Internal Medicine Hematology & Oncology; PCP Family Medicine; Referring Provider Family Medicine; Visit Provider Family Medicine
DX: D68.51 Activated protein C resistance (principal); I82.409 Acute embolism and thrombosis of unspecified deep veins of unspecified lower extremity; Z79.01 Long term (current) use of anticoagulants; D47.2 Monoclonal gammopathy
CPT/HCPCS: 36415; 80053; 82784; 83883; 84155; 84165; 85025; 85610; 86334

== ENCOUNTER → 2023-01-31 08:30 | Outpatient (CLI) | payer OTHER, MEDICAID, SELFPAY ==
[2023-01-31 09:07] LABS: INR 2.2 (0.9-1.3); Prothrombin Time 25.3 SECONDS (10.1-12.7)
== END ==
PROVIDERS: PCP Family Medicine; Referring Provider Family Medicine; Visit Provider Family Medicine
DX: I82.409 Acute embolism and thrombosis of unspecified deep veins of unspecified lower extremity (principal)
CPT/HCPCS: 36415; 85610

== ENCOUNTER → 2023-02-22 09:43 | Outpatient (CLI) | payer OTHER, MEDICAID, SELFPAY ==
[2023-02-22 11:52] LABS: INR 1.9 (0.9-1.3); Prothrombin Time 22.4 SECONDS (10.1-12.7)
== END ==
PROVIDERS: PCP Family Medicine; Referring Provider Family Medicine; Visit Provider Family Medicine
DX: D68.51 Activated protein C resistance (principal)
CPT/HCPCS: 36415; 85610

== ENCOUNTER → 2023-03-03 08:04 | Outpatient (CLI) | payer OTHER, MEDICAID, SELFPAY ==
[2023-03-03 09:38] LABS: Prothrombin Time 22.8 SECONDS (10.1-12.7)
== END ==
PROVIDERS: PCP Family Medicine; Referring Provider Family Medicine; Visit Provider Family Medicine
DX: Z79.01 Long term (current) use of anticoagulants (principal)
CPT/HCPCS: 36415; 85610

== ENCOUNTER → 2023-03-23 07:58 | Outpatient (CLI) | payer OTHER, MEDICAID, SELFPAY ==
[2023-03-23 08:54] LABS: INR 3.9 (0.9-1.3); Prothrombin Time 45.9 SECONDS (10.1-12.7)
== END ==
PROVIDERS: PCP Family Medicine; Referring Provider Family Medicine; Visit Provider Family Medicine
DX: I82.409 Acute embolism and thrombosis of unspecified deep veins of unspecified lower extremity (principal)
CPT/HCPCS: 36415; 85610

== ENCOUNTER → 2023-04-07 09:28 | Outpatient (CLI) | payer OTHER, MEDICAID, SELFPAY ==
--- NOTE | 2023-04-07 09:51 | DI.RAD.S_ITS ---
PROCEDURE: XR CHEST 2V INDICATIONS: Cough TECHNIQUE: 2 views of the chest were acquired. COMPARISON: [facility], CR, XR CHEST 2V, 03/01/2022, 10:28. FINDINGS: Surgical changes and devices: Surgical clips present at the GE junction. Lungs and pleura: There is left-sided volume loss and leftward deviation of the mediastinum. There is circumferential left pleural thickening, slightly worse compared to the prior study. Calcified pleural plaquing seen along the diaphragm surface. Rounded perihilar opacity is present in the central left lung. There is chronic consolidation in the retrocardiac region. The right lung appears aerated. No effusion or pneumothorax. Mediastinum: Mediastinal contours are normal. Heart size is normal. Bones and chest wall: No suspicious bony abnormalities. Soft tissues appear unremarkable. IMPRESSION: 1. Right mid lung round perihilar opacity has developed since the prior study. Further evaluation with chest CT is recommended. Dictated by: Asiya Oliveros M.D. on 04/07/2023 at 12:37 Approved by: Asiya Oliveros M.D. on 04/07/2023 at 12:52
[2023-04-07 10:20] LABS: COVID-19 CEPHEID 4-PLEX PCR Negative (Negative); Influenza A - CEPHEID Flu A NEGATIVE (NEGATIVE); Influenza B - CEPHEID Flu B NEGATIVE (NEGATIVE); Respiratory Syncytial Virus Negative (Negative)
== END ==
PROVIDERS: PCP Family Medicine; Referring Provider Nurse Practitioner Family; Visit Provider Nurse Practitioner Family
DX: J06.9 Acute upper respiratory infection, unspecified (principal); R05.9 Cough, unspecified; Z20.822 Contact with and (suspected) exposure to COVID-19
CPT/HCPCS: 0241U; 71046

== ENCOUNTER → 2023-04-21 09:14 | Outpatient (CLI) | payer OTHER, MEDICAID, SELFPAY ==
[2023-04-21 10:33] LABS: INR 2.7 (0.9-1.3); Prothrombin Time 30.9 SECONDS (10.1-12.7)
== END ==
PROVIDERS: PCP Family Medicine; Referring Provider Family Medicine; Visit Provider Family Medicine
DX: I82.409 Acute embolism and thrombosis of unspecified deep veins of unspecified lower extremity (principal)
CPT/HCPCS: 36415; 85610

== ENCOUNTER → 2023-04-27 07:55 | Outpatient (CLI) | payer OTHER, MEDICAID, SELFPAY ==
--- NOTE | 2023-04-27 07:57 | DI.CT.S_ITS ---
PROCEDURE: CT CHEST W CON INDICATIONS: f/u on opacity on CXR TECHNIQUE: After the administration of intravenous contrast, 5 mm thick sections acquired from the pulmonary apices to the posterior costophrenic angles. 1 mm axial lung, 5 mm thick coronal and sagittal reformats and 7 mm axial MIP were acquired. For radiation dose reduction, the following was used: automated exposure control, adjustment of mA and/or kV according to patient size. COMPARISON: None. FINDINGS: Image quality: Excellent. Lungs and pleura: The left lung is small, resulting in volume loss and shifting of the mediastinum to the left. There is associated bronchial thickening and smooth interstitial thickening, with bronchiolectasis in the lung bases. Pleural plaque along the left posterior lung. 1.1 cm nodularity in the right upper lobe (series 3, image 93). Trace peripheral ground-glass in the right middle lobe, with mild bronchiectasis. Mediastinum: Heart size is mildly enlarged. Trace pericardial effusion. No mediastinal or hilar adenopathy by size criteria. Dilated right pulmonary artery Esophagus is normal in caliber. No hiatal hernia. 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 Bones and chest wall: No suspicious bony lesions. No vertebral body compression fractures. No axillary or supraclavicular adenopathy by size criteria. Thyroid gland is unremarkable . Abdomen: Visualized upper abdominal solid organs appear normal. Upper abdominal bowel loops are normal in caliber. IMPRESSION: Restrictive lung disease of the left lung, with indeterminate pattern of interstitial lung disease given smooth interstitial thickening, bronchial thickening and marked volume loss. Associated pleural calcification of the left posterior lung. 1.1 cm nodularity of the right upper lung zone, possibly scar. Recommend follow-up in 3 months to ensure resolution. Trace ground-glass in the right middle lobe, with associated mild bronchiectasis. Mild infection not excluded. Hemiazygous continuation of the IVC. Mild dilation of the right pulmonary artery, suggestive of pulmonary hypertension. Dictated by: Edison Delacruz M.D. on 04/27/2023 at 9:13 Approved by: Edison Delacruz M.D. on 04/27/2023 at 9:25
[2023-04-27 08:29] LABS: Estimated Glomerular Filt Rate > 60 mL/min (>60)
== END ==
PROVIDERS: PCP Family Medicine; Referring Provider Specialist; Visit Provider Specialist
DX: J98.4 Other disorders of lung (principal); D47.2 Monoclonal gammopathy; R93.89 Abnormal findings on diagnostic imaging of other specified body structures
CPT/HCPCS: 36415; 71260; 82565; Q9967

== ENCOUNTER → 2023-06-26 08:31 | Outpatient (CLI) | payer OTHER, MEDICAID, SELFPAY ==
[2023-06-26 09:36] LABS: Add Manual Diff / Slide Review NO; Basophils Absolute Auto 0 /uL (0-100); Basophils Percent Auto 0.8 % (0-2); Eosinophils Absolute Auto 300 /uL (0-450); Eosinophils Percent Auto 7.3 % (2-4); Hemoglobin 12.4 g/dL (13.5-17.5); Lymphocytes Absolute Auto 900 /uL (1100-4500); Lymphocytes Percent Auto 23.3 % (25-40); Mean Corpuscular HGB Conc 33.6 % (30-36); Mean Corpuscular Hemoglobin 31.3 PG (26-34); Mean Corpuscular Volume 93.1 fL (80-100); Monocytes Absolute Auto 600 /uL (0-900); Monocytes Percent Auto 14.4 % (3-14); Neutrophils Absolute Auto 2100 /uL (1500-7000); Neutrophils Percent Auto 54.2 % (50-75); Platelet Count 215 X10^3/uL (150-400); Red Blood Cell Count 3.97 X10^6/uL (4.5-5.9); Red Cell Distribution Width 14.9 % (11.6-14.8); White Blood Cell Count 3.9 X10^3/uL (4.5-11.0)
[2023-06-26 09:53] LABS: Alanine Aminotransferase 17 IU/L (<50); Albumin 4.1 g/dL (3.5-5.0); Albumin Globulin Ratio 1.6 (1.0-2.8); Alkaline Phosphatase 60 U/L (38-126); Aspartate Aminotransferase 33 IU/L (17-59); Bilirubin Total 0.3 mg/dL (0.2-1.3); Blood Urea Nitrogen 24 mg/dL (9-20); Carbon Dioxide 30 mmol/L (22-32); Chloride 103 mmol/L (98-107); Estimated Glomerular Filt Rate > 60 mL/min (>60); Globulin 2.6 g/dL (1.7-4.1); Glucose 108 mg/dL (80-110); HEMOLYSIS < 15 (0-50); Lactate Dehydrogenase 241 U/L (120-246); Potassium 5.1 mmol/L (3.4-5.1); Sodium 136 mmol/L (137-145); Total Protein 6.7 g/dL (6.3-8.2)
[2023-06-27 20:35] LABS: Free Kappa Lt Chains, Serum 743.9 mg/L (3.3-19.4); Free Lambda Lt Chains,Serum 8.1 mg/L (5.7-26.3)
[2023-06-28 16:37] LABS: Albumin 4.1 g/dL (2.9-4.4); Alpha-1-Globulin 0.2 g/dL (0.0-0.4); Alpha-2-Globulin 0.7 g/dL (0.4-1.0); Beta-2-Microglobulin 1.8 mg/L (0.6-2.4); Gamma Globulin 0.7 g/dL (0.4-1.8); Globulin Total 2.4 g/dL (2.2-3.9); Immunoglobulin A, Serum 176 mg/dL (61-437); Immunoglobulin G,Serum 575 mg/dL (603-1613); Immunoglobulin M, Serum 31 mg/dL (20-172); Protein, Total 6.5 g/dL (6.0-8.5)
== END ==
PROVIDERS: Internal Medicine Hematology & Oncology; PCP Family Medicine; Referring Provider Family Medicine; Visit Provider Family Medicine
DX: D47.2 Monoclonal gammopathy (principal)
CPT/HCPCS: 36415; 80053; 82232; 82784; 83615; 83883; 84155; 84165; 85025; 86334

== ENCOUNTER → 2023-07-05 08:59 | Outpatient (CLI) | payer OTHER, MEDICAID, SELFPAY ==
[2023-07-05 09:46] LABS: INR 2.7 (0.9-1.3); Prothrombin Time 31.3 SECONDS (10.1-12.7)
== END ==
PROVIDERS: PCP Family Medicine; Referring Provider Family Medicine; Visit Provider Family Medicine
DX: I82.409 Acute embolism and thrombosis of unspecified deep veins of unspecified lower extremity (principal)
CPT/HCPCS: 36415; 85610

== ENCOUNTER → 2023-07-05 10:30 | Oncology outpatient (ONC) | payer OTHER, MEDICAID, SELFPAY ==
--- NOTE | 2019-01-29 11:12 | ONC.APRN.PN ---
PN -Subjective Interval history: The patient is a 58-year-old male who is followed in this clinic for the following diagnoses: 1. Longstanding history of borderline/normochromic/normocytic anemia. Observation only. 2. 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 3. Known history of hereditary thrombophilia. 4. Prior deep venous thrombosis (DVT) in his right lower extremity years ago. On maintenance Coumadin. 5. Concurrent factor V Leiden mutation. 6. Last colonoscopy in 2015 (one small polyp identified/no biopsy or removal, because of a prolonged ProTime). Repeat colonoscopy scheduled for September 19, 2017. 7. Prior gastric outlet obstruction surgery, 12+ years ago, resulting in removal of a small segment of his proximal small bowel. Patient presents to clinic for routine scheduled triage. He has no acute changes to report whatsoever today. No illnesses or hospitalizations since his previous visit. No cough, fever, chills. No night sweats. Appetite is stable, weight is stable. Activity tolerance is unchanged. No issue with bladder or bowels. No new pain, no new lumps or bumps. Primary care provider is Dr Talbot whom he sees regularly. Pt also sees a mental hygienist for chronic fatigue. Home Medications and Allergies Home Medications Medication Instructions Recorded Confirmed Type warfarin 5 mg tablet See Rx Instructions .ROUTE 07/24/18 Rx .COMPLEX #125 tab Allergies Allergy/AdvReac Type Severity Reaction Status Date / Time No Known Drug Allergies Allergy Verified 05/31/18 17:22 Exam Vital signs: Intake and Output 01/28/19 01/29/19 01/29/19 23:59 07:59 15:59 Other: Weight 70.4 kg Patient Weight 01/30/19 07:59 Weight 70.4 kg - Constitutional positive no acute distress, positive thin - Routine HEENT Exam Eye: Present: conjunctivae pink. Absent: conjunctival icterus, scleral injection ENT: Present: mucous membranes moist, oropharynx clear - Routine Neck Exam Present: supple. Absent: lymphadenopathy - Routine Chest/Breast/Axilla Exam Axillae: Absent: lymphadenopathy, mass, tenderness - Routine Respiratory Exam Present: Clear to auscultation bilaterally. Absent: rales, rhonchi, wheezes - Routine Cardiovascular Exam Present: RRR, S1, S2. Absent: murmur, gallop, rubs, JVD - Routine Abdominal Exam Present: soft, normoactive bowel sounds. Absent: tenderness, distended, organomegaly - Routine Extremities Exam Absent: edema, calf tenderness - Routine Skin Exam Present: intact, normal turgor. Absent: petechiae, rash - Routine Neurological Exam Present: alert, oriented X3 - Routine Psychiatric Exam Present: normal affect Assessment and Plan (1) Monoclonal gammopathy of undetermined significance Current visit: No Status: Acute The patient is a 58-year-old male who is followed in this clinic for MGUS. Clinically he appears stable. In review of his bloodwork His underlying MGUS remains stable/dormant. CBC is stable demonstrating only a mild anemia which is chronic hemoglobin 12.9 hematocrit 39.2 MCV 93.6. Platelets [id number]. CMP is unremarkable with a normal calcium of 9.3, creatinine 0.80 with GFR greater than 60. No new pain. Return to clinic in 6 months time I would like for this patient to establish care with 1 of our new oncologist at which time we will also check quantitative IgG, IgA, IgM, serum free light chains, beta 2 microglobulin, SPEP.
[2019-01-29 11:14] VITALS: BP 126/84; PULSE 74; RESP 18; TEMP 37; O2SAT 99
[2019-08-01 12:11] VITALS: BP 135/62; PULSE 63; RESP 18; TEMP 36.4; O2SAT 99
--- NOTE | 2019-08-01 12:21 | P.PNONC_ITS ---
PN -Subjective Interval history: ID/CC: The patient is a 58-year-old male who is followed in this clinic for the following diagnoses: Hematology: 1. Longstanding history of borderline/normochromic/normocytic anemia. Observation only. 2. 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 3. Known history of hereditary thrombophilia. 4. Prior deep venous thrombosis (DVT) in his right lower extremity years ago. On maintenance Coumadin. 5. Concurrent factor V Leiden mutation. 6. Prior gastric outlet obstruction surgery, 12+ years ago, resulting in removal of a small segment of his proximal small bowel. Inteirm Events: Ever since after gastric surgery, he has been feeling tired. No other signs or symptoms. No cough, fever, chills. No night sweats. Appetite is stable, weight is stable. Activity tolerance is unchanged. No issue with bladder or bowels. No new pain, no new lumps or bumps. Primary care provider is Dr Talbot whom he sees regularly. Pt also sees a production lapping machine operator for chronic fatigue. - Patient Self-Reported Symptoms SR Constitution: Fatigue/Malaise SR respiratory issues: Shortness of breath SR Musculoskeletal issues: Back or neck pain - Additional ROS All systems PM: reviewed and no additional remarkable complaints except as stated Home Medications and Allergies Home Medications Medication Instructions Recorded Confirmed Type warfarin 5 mg tablet See Rx Instructions .ROUTE 07/24/18 Rx .COMPLEX #125 tab Allergies Allergy/AdvReac Type Severity Reaction Status Date / Time No Known Drug Allergies Allergy Verified 05/31/18 17:22 Exam Vital signs: Vital Signs Temp Pulse Resp BP Pulse Ox 08/01/19 12:11 97.6 F 63 18 135/62 99 Intake and Output 07/31/19 08/01/19 08/01/19 23:59 07:59 15:59 Other: Weight 73 kg Patient Weight 08/01/19 23:59 Weight 73 kg Narrative: Gen: WDWN, NAD, pleasant and cooperative. HEENT: NCAT, EOMI, PERRLA, anicteric sclera. Neck: Supple, No palpable thyromegaly or lymphadenopathy. Respiratory: CTAB, no wheezes audible. No JVD Cardiovascular: RRR, S1 and S2 normal, no M/G/R. Abdomen: Soft, NTND, BS normal, no palpable organomegaly Extremities: No LE pitting edema. Lymphatic: no palpable lymph nodes in the neck, axillae Neurological: AOx3, CN II-XII grossly intact. No focal motor or sensory deficit. Psychiatric: Good judgment and insight; normal affect; normal thought process; cooperative, no depression, no anxiety. Results - Labs Pending Assessment and Plan (1) Monoclonal gammopathy of undetermined significance I reviewed the laboratory tests with the patient. I do not think there is any progression of his underlying MGUS. Explained to the patient that MGUS has a 1% per year chance of evolving into multiple myeloma. Will need continued regular follow-up. Patient voiced understanding. Plan: RTC in 6 months, repeat MM panel
[2020-05-07 09:22] LABS: Add Manual Diff / Slide Review NO; Basophils Absolute Auto 0 /uL (0-100); Eosinophils Absolute Auto 300 /uL (0-450); Eosinophils Percent Auto 6.5 % (2-4); Hematocrit 35.1 % (41-53); Hemoglobin 12.1 g/dL (13.5-17.5); Lymphocytes Absolute Auto 1000 /uL (1100-4500); Lymphocytes Percent Auto 22.9 % (25-40); Mean Corpuscular HGB Conc 34.5 % (30-36); Mean Corpuscular Hemoglobin 31.8 PG (26-34); Mean Corpuscular Volume 92.1 fL (80-100); Monocytes Absolute Auto 500 /uL (0-900); Monocytes Percent Auto 12.5 % (3-14); Neutrophils Absolute Auto 2500 /uL (1500-7000); Neutrophils Percent Auto 57.1 % (50-75); Platelet Count 235 X10^3/uL (150-400); Red Blood Cell Count 3.82 X10^6/uL (4.5-5.9); Red Cell Distribution Width 14.8 % (11.6-14.8); White Blood Cell Count 4.4 X10^3/uL (4.5-11.0)
[2020-05-07 09:30] LABS: INR 4.1 (0.9-1.3); Prothrombin Time 46.5 SECONDS (10.1-12.7)
[2020-05-07 09:35] LABS: Alanine Aminotransferase 12 IU/L (<50); Albumin 4.5 g/dL (3.5-5.0); Albumin Globulin Ratio 1.7 (1.0-2.8); Alkaline Phosphatase 59 U/L (38-126); Aspartate Aminotransferase 30 IU/L (17-59); BUN Creatinine Ratio 30.7 (6-22); Bilirubin Total 0.6 mg/dL (0.2-1.3); Blood Urea Nitrogen 23 mg/dL (9-20); Calcium 9.4 mg/dL (8.4-10.2); Carbon Dioxide 28 mmol/L (22-32); Chloride 105 mmol/L (98-107); Estimated Glomerular Filt Rate > 60.0 mL/min (>60); Globulin 2.6 g/dL (1.7-4.1); Glucose 94 mg/dL (80-110); HEMOLYSIS < 15 (0-50); Lactate Dehydrogenase 543 U/L (313-618); Potassium 4.6 mmol/L (3.4-5.1); Sodium 138 mmol/L (137-145); Total Protein 7.1 g/dL (6.3-8.2)
[2020-05-08 06:36] LABS: Immunoglobulin A 224 mg/dL (61-437); Immunoglobulin G, Quantitative 578 mg/dL (603-1613); Immunoglobulin M, Quantitative 32 mg/dL (20-172)
[2020-05-09 03:08] LABS: Beta-2-Microglobulin 1.4 mg/L (0.6-2.4)
--- NOTE | 2020-05-14 10:27 | ONC.PN ---
PN -Subjective Interval history: ID/CC: The patient is a 59-year-old male who is followed in this clinic for the following diagnoses: Hematology: 1. Longstanding history of borderline/normochromic/normocytic anemia. Observation only. 2. 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 3. Known history of hereditary thrombophilia. 4. Prior deep venous thrombosis (DVT) in his right lower extremity years ago. On maintenance Coumadin. 5. Concurrent factor V Leiden mutation. 6. Prior gastric outlet obstruction surgery, 12+ years ago, resulting in removal of a small segment of his proximal small bowel. Inteirm Events: Patient presents here today for scheduled follow-up visit. No new signs or symptoms. - Patient Self-Reported Symptoms SR Constitution: Fatigue/Malaise SR respiratory issues: Shortness of breath SR Musculoskeletal issues: Back or neck pain - Additional ROS All systems PM: reviewed and no additional remarkable complaints except as stated Home Medications and Allergies Home Medications Medication Instructions Recorded Confirmed Type warfarin 5 mg tablet See Rx Instructions .ROUTE 08/14/19 Rx .COMPLEX #125 tablet Allergies Allergy/AdvReac Type Severity Reaction Status Date / Time No Known Drug Allergies Allergy Verified 05/31/18 17:22 Exam Vital signs: 05/14/20 10:51 Last Vital Signs Temp 98.2 F 05/14/20 10:28 Pulse 70 05/14/20 10:28 Resp 18 05/14/20 10:28 BP 136/82 05/14/20 10:28 Pulse Ox 100 05/14/20 10:28 - Constitutional positive no acute distress, positive thin - Routine HEENT Exam Head: Present: normocephalic, atraumatic Eye: Present: EOMI, PERRL, normal accommodation. Absent: conjunctival icterus - Routine Neck Exam Present: supple - Routine Respiratory Exam Present: Clear to auscultation bilaterally - Routine Cardiovascular Exam Present: RRR, S1, S2. Absent: murmur, gallop, rubs - Routine Abdominal Exam Present: soft. Absent: tenderness, distended - Routine Neurological Exam Present: alert, oriented X3, CN II-XII intact. Absent: sensory deficit, motor deficit - Routine Psychiatric Exam Present: normal affect, cooperative Results - Labs Laboratory Last Values WBC 4.4 X10^3/uL (4.5-11.0) L 05/07/20 09:11 RBC 3.82 X10^6/uL (4.5-5.9) L 05/07/20 09:11 Hgb 12.1 g/dL (13.5-17.5) L 05/07/20 09:11 Hct 35.1 % (41-53) L 05/07/20 09:11 MCV 92.1 fL (80-100) 05/07/20 09:11 MCH 31.8 PG (26-34) 05/07/20 09:11 MCHC 34.5 % (30-36) 05/07/20 09:11 RDW 14.8 % (11.6-14.8) 05/07/20 09:11 Plt Count 235 X10^3/uL (150-400) 05/07/20 09:11 Neut % (Auto) 57.1 % (50-75) 05/07/20 09:11 Lymph % (Auto) 22.9 % (25-40) L 05/07/20 09:11 [place] % (Auto) 12.5 % (3-14) 05/07/20 09:11 Eos % (Auto) 6.5 % (2-4) H 05/07/20 09:11 Baso % (Auto) 1.0 % (0-2) 05/07/20 09:11 Neut # (Auto) 2500 /uL (5113-2076) 05/07/20 09:11 Lymph # (Auto) 1000 /uL (4094-6480) L 05/07/20 09:11 [place] # (Auto) 500 /uL (0-900) 05/07/20 09:11 Eos # (Auto) 300 /uL (0-450) 05/07/20 09:11 Baso # (Auto) 0 /uL (0-100) 05/07/20 09:11 PT 46.5 SECONDS (10.1-12.7) H 05/07/20 09:11 INR 4.1 (0.9-1.3) H 05/07/20 09:11 Sodium 138 mmol/L (137-145) 05/07/20 09:11 Potassium 4.6 mmol/L (3.4-5.1) 05/07/20 09:11 Chloride 105 mmol/L (98-107) 05/07/20 09:11 Carbon Dioxide 28 mmol/L (22-32) 05/07/20 09:11 BUN 23 mg/dL (9-20) H 05/07/20 09:11 Creatinine 0.75 mg/dL (0.66-1.25) 05/07/20 09:11 Estimated GFR > 60.0 mL/min (>60) 05/07/20 09:11 BUN/Creatinine Ratio 30.7 (6-22) H 05/07/20 09:11 Glucose 94 mg/dL (80-110) 05/07/20 09:11 Calcium 9.4 mg/dL (8.4-10.2) 05/07/20 09:11 Total Bilirubin 0.6 mg/dL (0.2-1.3) 05/07/20 09:11 AST 30 IU/L (17-59) 05/07/20 09:11 ALT 12 IU/L (<50) 05/07/20 09:11 Alkaline Phosphatase 59 U/L (38-126) 05/07/20 09:11 Lactate Dehydrogenase 543 U/L (313-618) 05/07/20 09:11 Total Protein 7.1 g/dL (6.3-8.2) 05/07/20 09:11 Albumin 4.5 g/dL (3.5-5.0) 05/07/20 09:11 Globulin 2.6 g/dL (1.7-4.1) 05/07/20 09:11 Albumin/Globulin Ratio 1.7 (1.0-2.8) 05/07/20 09:11 Zwmg-0-Kdaumadoemjdh 1.4 mg/L (0.6-2.4) 05/07/20 09:11 IgG, Serum (MS) 578 mg/dL (603-1613) L 05/07/20 09:11 IgA 224 mg/dL (61-437) 05/07/20 09:11 IgM 32 mg/dL (20-172) 05/07/20 09:11 Free Lambda LC, Quant 7.4 mg/L (5.7-26.3) 05/07/20 09:11 Fr [place]& Lambda LC Qnt 417.5 mg/L (3.3-19.4) H 06/18/20 09:11 Fr Lambda/[place] Ratio 56.42 (0.26-1.65) H 05/07/20 09:11 Assessment and Plan (1) Monoclonal gammopathy of undetermined significance Today I reviewed the lab results with the patient. See patient serum immunoglobulin levels A and M were normal with slightly decreased IgG level. The serum light chain ratio lambda/kappa sound 56. I talked with the patient that usually if the rashes higher than 20, there is a concern for possible high risk smoldering multiple myeloma. Talked with him that I will have him come back in about a month and repeat the test. Plan: RTC in 1 months, repeat MM panel
[2020-05-14 10:28] VITALS: BP 136/82; PULSE 70; RESP 18; TEMP 36.8; O2SAT 100
[2020-05-31 14:15] LABS: Free Kappa Lt Chains, Serum 417.5; Free Lambda Lt Chains,Serum 7.4
[2020-06-09 08:35] LABS: Add Manual Diff / Slide Review NO; Basophils Absolute Auto 0 /uL (0-100); Basophils Percent Auto 0.9 % (0-2); Eosinophils Absolute Auto 300 /uL (0-450); Eosinophils Percent Auto 7.9 % (2-4); Hematocrit 36.3 % (41-53); Hemoglobin 11.9 g/dL (13.5-17.5); Lymphocytes Absolute Auto 900 /uL (1100-4500); Lymphocytes Percent Auto 22.6 % (25-40); Mean Corpuscular HGB Conc 32.9 % (30-36); Mean Corpuscular Hemoglobin 30.3 PG (26-34); Mean Corpuscular Volume 91.8 fL (80-100); Monocytes Absolute Auto 600 /uL (0-900); Monocytes Percent Auto 14.4 % (3-14); Neutrophils Absolute Auto 2200 /uL (1500-7000); Neutrophils Percent Auto 54.2 % (50-75); Platelet Count 208 X10^3/uL (150-400); Red Blood Cell Count 3.95 X10^6/uL (4.5-5.9); Red Cell Distribution Width 14.8 % (11.6-14.8); White Blood Cell Count 4.1 X10^3/uL (4.5-11.0)
[2020-06-09 08:43] LABS: Alanine Aminotransferase 12 IU/L (<50); Albumin 4.4 g/dL (3.5-5.0); Albumin Globulin Ratio 1.8 (1.0-2.8); Alkaline Phosphatase 60 U/L (38-126); Aspartate Aminotransferase 32 IU/L (17-59); Bilirubin Total 0.6 mg/dL (0.2-1.3); Blood Urea Nitrogen 18 mg/dL (9-20); Calcium 9.4 mg/dL (8.4-10.2); Carbon Dioxide 30 mmol/L (22-32); Chloride 104 mmol/L (98-107); Estimated Glomerular Filt Rate > 60.0 mL/min (>60); Globulin 2.4 g/dL (1.7-4.1); Glucose 93 mg/dL (80-110); HEMOLYSIS < 15 (0-50); Lactate Dehydrogenase 608 U/L (313-618); Potassium 4.8 mmol/L (3.4-5.1); Sodium 137 mmol/L (137-145); Total Protein 6.8 g/dL (6.3-8.2)
[2020-06-09 09:22] LABS: Prothrombin Time 56.3 SECONDS (10.1-12.7)
--- NOTE | 2020-06-09 15:51 | PC.NURSE ---
Lab called to report critical lab value INR 5. Dr. Talbot's office called and notified, spoke with OSVALDO Cole.
[2020-06-11 07:09] LABS: Free Kappa Lt Chain,UR 113.31 mg/L (0.63-113.79); Free Lambda Lt Chain,UR 3.73 mg/L (0.47-11.77); URINE Kappa/Lambda Ratio 30.38 (1.03-31.76)
[2020-06-11 13:10] LABS: Beta-2-Microglobulin 1.4 mg/L (0.6-2.4)
[2020-06-11 14:13] LABS: Immunoglobulin A, Serum 212 mg/dL (61-437); Immunoglobulin G,Serum 539 mg/dL (603-1613); Immunoglobulin M, Serum 34 mg/dL (20-172)
[2020-06-11 15:08] LABS: Albumin 3.9 g/dL (2.9-4.4); Alpha-1-Globulin 0.2 g/dL (0.0-0.4); Alpha-2-Globulin 0.6 g/dL (0.4-1.0); Gamma Globulin 0.5 g/dL (0.4-1.8); Globulin Total 2.2 g/dL (2.2-3.9); Protein, Total 6.1 g/dL (6.0-8.5)
[2020-06-22 11:47] VITALS: BP 130/80; PULSE 67; RESP 18; TEMP 36.7; O2SAT 98
--- NOTE | 2020-06-22 12:07 | ONC.PN ---
PN -Subjective Interval history: ID/CC: The patient is a 59-year-old male who is followed in this clinic for the following diagnoses: Hematology: 1. Longstanding history of borderline/normochromic/normocytic anemia. Observation only. 2. 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 3. Known history of hereditary thrombophilia. 4. Prior deep venous thrombosis (DVT) in his right lower extremity years ago. On maintenance Coumadin. 5. Concurrent factor V Leiden mutation. 6. Prior gastric outlet obstruction surgery, 12+ years ago, resulting in removal of a small segment of his proximal small bowel. Inteirm Events: Patient presents here today for scheduled follow-up visit. No new signs or symptoms. - Patient Self-Reported Symptoms SR Constitution: Fatigue/Malaise SR respiratory issues: Shortness of breath SR Musculoskeletal issues: Back or neck pain - Additional ROS All systems PM: reviewed and no additional remarkable complaints except as stated Home Medications and Allergies Home Medications Medication Instructions Recorded Confirmed Type warfarin 5 mg tablet See Rx Instructions .ROUTE 08/14/19 06/22/20 Rx .COMPLEX #125 tablet thyroid (pork) [Nature-Throid] 65 mg PO DAILY 06/22/20 06/22/20 History Allergies Allergy/AdvReac Type Severity Reaction Status Date / Time No Known Drug Allergies Allergy Verified 05/31/18 17:22 Exam Vital signs: Vital Signs Temp Pulse Resp BP Pulse Ox 06/22/20 11:47 98.1 F 67 18 130/80 98 Intake and Output 06/21/20 06/22/20 06/22/20 23:59 07:59 15:59 Other: Weight 72.8 kg Patient Weight 06/22/20 23:59 Weight 72.8 kg - Constitutional positive no acute distress, positive average body habitus, positive cooperative - Routine HEENT Exam Head: Present: normocephalic, atraumatic Eye: Present: EOMI, PERRL, normal accommodation. Absent: conjunctival icterus - Routine Neck Exam Present: supple. Absent: lymphadenopathy, thyromegaly - Routine Chest/Breast/Axilla Exam Axillae: Absent: lymphadenopathy - Routine Respiratory Exam Present: Clear to auscultation bilaterally. Absent: accessory muscle use, rales, wheezes - Routine Cardiovascular Exam Present: RRR, S1, S2. Absent: murmur, gallop, rubs - Routine Abdominal Exam Present: soft. Absent: tenderness, distended, organomegaly - Routine Extremities Exam Absent: edema - Routine Neurological Exam Present: alert, oriented X3, CN II-XII intact. Absent: sensory deficit, motor deficit - Routine Psychiatric Exam Present: normal affect Results - Labs Laboratory Last Values WBC 4.1 X10^3/uL (4.5-11.0) L 06/09/20 08:20 RBC 3.95 X10^6/uL (4.5-5.9) L 06/09/20 08:20 Hgb 11.9 g/dL (13.5-17.5) L 06/09/20 08:20 Hct 36.3 % (41-53) L 06/09/20 08:20 MCV 91.8 fL (80-100) 06/09/20 08:20 MCH 30.3 PG (26-34) 06/09/20 08:20 MCHC 32.9 % (30-36) 06/09/20 08:20 RDW 14.8 % (11.6-14.8) 06/09/20 08:20 Plt Count 208 X10^3/uL (150-400) 06/09/20 08:20 Neut % (Auto) 54.2 % (50-75) 06/09/20 08:20 Lymph % (Auto) 22.6 % (25-40) L 06/09/20 08:20 [place] % (Auto) 14.4 % (3-14) H 06/09/20 08:20 Eos % (Auto) 7.9 % (2-4) H 06/09/20 08:20 Baso % (Auto) 0.9 % (0-2) 06/09/20 08:20 Neut # (Auto) 2200 /uL (0409-6180) 06/09/20 08:20 Lymph # (Auto) 900 /uL (2323-2661) L 06/09/20 08:20 [place] # (Auto) 600 /uL (0-900) 06/09/20 08:20 Eos # (Auto) 300 /uL (0-450) 06/09/20 08:20 Baso # (Auto) 0 /uL (0-100) 06/09/20 08:20 PT 56.3 SECONDS (10.1-12.7) H 06/09/20 08:20 INR 5.0 (0.9-1.3) H* 06/09/20 08:20 Sodium 137 mmol/L (137-145) 06/09/20 08:20 Potassium 4.8 mmol/L (3.4-5.1) 06/09/20 08:20 Chloride 104 mmol/L (98-107) 06/09/20 08:20 Carbon Dioxide 30 mmol/L (22-32) 06/09/20 08:20 BUN 18 mg/dL (9-20) 06/09/20 08:20 Creatinine 0.72 mg/dL (0.66-1.25) 06/09/20 08:20 Estimated GFR > 60.0 mL/min (>60) 06/09/20 08:20 BUN/Creatinine Ratio 25.0 (6-22) H 06/09/20 08:20 Glucose 93 mg/dL (80-110) 06/09/20 08:20 Calcium 9.4 mg/dL (8.4-10.2) 06/09/20 08:20 Total Bilirubin 0.6 mg/dL (0.2-1.3) 06/09/20 08:20 AST 32 IU/L (17-59) 06/09/20 08:20 ALT 12 IU/L (<50) 06/09/20 08:20 Alkaline Phosphatase 60 U/L (38-126) 06/09/20 08:20 Lactate Dehydrogenase 608 U/L (313-618) 06/09/20 08:20 Total Protein 6.1 g/dL (6.0-8.5) 06/09/20 08:20 Total Protein 6.8 g/dL (6.3-8.2) 06/09/20 08:20 Albumin 3.9 g/dL (2.9-4.4) 06/09/20 08:20 Albumin 4.4 g/dL (3.5-5.0) 06/09/20 08:20 Globulin 2.4 g/dL (1.7-4.1) 06/09/20 08:20 Albumin/Globulin Ratio 1.8 (1.0-2.8) 06/09/20 08:20 Albumin/Globulin Ratio 1.8 (0.7-1.7) H 06/09/20 08:20 Ptrbr-0-Yzjihdyxo 0.2 g/dL (0.0-0.4) 06/09/20 08:20 Mgoul-7-Ayvjzaijn 0.6 g/dL (0.4-1.0) 06/09/20 08:20 Beta Globulins 0.9 g/dL (0.7-1.3) 06/09/20 08:20 Wtmw-5-Uaggaesvqookf 1.4 mg/L (0.6-2.4) 06/09/20 08:20 Gamma Globulins 0.5 g/dL (0.4-1.8) 06/09/20 08:20 Gamma Glob/Tot Protein 2.2 g/dL (2.2-3.9) 06/09/20 08:20 M-Shailesh Comment: g/dL (Not Observed) 06/09/20 08:20 U Free [place] Light Ch 113.31 mg/L (0.63-113.79) 06/09/20 08:20 U Free Lambda Light Ch 3.73 mg/L (0.47-11.77) 06/09/20 08:20 Tot [place]/Lambda Ratio 30.38 (1.03-31.76) 06/09/20 08:20 IgG, Serum (MS) 578 mg/dL (603-1613) L 05/07/20 09:11 Serum IgA 212 mg/dL (61-437) 06/09/20 08:20 Serum IgG 539 mg/dL (603-1613) L 06/09/20 08:20 Serum IgM 34 mg/dL (20-172) 06/09/20 08:20 IgA 224 mg/dL (61-437) 05/07/20 09:11 IgM 32 mg/dL (20-172) 05/07/20 09:11 KIRSTY Interpretation Comment: (.) 06/09/20 08:20 Free [place] Light Chains 417.5 05/07/20 09:11 Free Lambda Light Chain 7.4 05/07/20 09:11 Free Lambda LC, Quant Cancelled 05/07/20 09:11 Fr [place]& Lambda LC Qnt Cancelled 05/07/20 09:11 Fr Lambda/[place] Ratio 56.42 05/07/20 09:11 Ref Lab Notation Comment (.) 06/09/20 08:20 Assessment and Plan (1) Monoclonal gammopathy of undetermined significance Today, I reviewed the lab results with the patient. CBCs are stable. Serum CMPs are completely within the normal range. M-spike it is not quantifiable even though on the immunofixation, there is a trace amount of monoclonal IgA kappa. Urinary free light chain and ratio are normal. I talked with him that there is no evidence of progression of his underlying MGUS. I will continue current active surveillance. Plan: RTC in 6 months, repeat MM panel
[2021-01-11 13:32] VITALS: BP 135/71; PULSE 61; RESP 18; TEMP 35.8; O2SAT 100
--- NOTE | 2021-01-11 13:45 | P.PNONC_ITS ---
PN -Subjective Interval history: ID/CC: The patient is a 60-year-old male who is followed in this clinic for the following diagnoses: Hematology: 1. Longstanding history of borderline/normochromic/normocytic anemia. Observation only. 2. 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 3. Known history of hereditary thrombophilia. 4. Prior deep venous thrombosis (DVT) in his right lower extremity years ago. On maintenance Coumadin. 5. Concurrent factor V Leiden mutation. 6. Prior gastric outlet obstruction surgery, 12+ years ago, resulting in removal of a small segment of his proximal small bowel. Inteirm Events: Patient presents here today for scheduled follow-up visit. No new signs or symptoms. - Patient Self-Reported Symptoms SR Constitution: Fatigue/Malaise SR respiratory issues: Shortness of breath SR Skin issues: Dry skin SR Musculoskeletal issues: Back or neck pain SR Hematologic issues: Bleeding/bruising - Additional ROS All systems PM: reviewed and no additional remarkable complaints except as stated Home Medications and Allergies Home Medications Medication Instructions Recorded Confirmed Type thyroid (pork) [Nature-Throid] 65 mg PO DAILY 06/22/20 06/22/20 History warfarin 5 mg tablet See Rx Instructions .ROUTE 10/22/20 10/22/20 Rx .COMPLEX #90 tab acetaminophen [Tylenol] PRN 01/11/21 History Allergies Allergy/AdvReac Type Severity Reaction Status Date / Time No Known Drug Allergies Allergy Verified 05/31/18 17:22 Exam Vital signs: Vital Signs Temp Pulse Resp BP Pulse Ox 01/11/21 13:32 96.4 F L 61 18 135/71 100 Intake and Output 01/10/21 01/11/21 01/11/21 23:59 07:59 15:59 Other: Weight 73.6 kg Patient Weight 01/11/21 23:59 Weight 73.6 kg - Constitutional positive no acute distress, positive thin, positive chronically ill appearing - Routine HEENT Exam Head: Present: normocephalic, atraumatic Eye: Present: EOMI, PERRL, normal accommodation. Absent: conjunctival icterus - Routine Neck Exam Present: supple. Absent: lymphadenopathy, thyromegaly - Routine Chest/Breast/Axilla Exam Axillae: Absent: lymphadenopathy - Routine Respiratory Exam Present: Clear to auscultation bilaterally. Absent: wheezes - Routine Cardiovascular Exam Present: RRR, S1, S2. Absent: murmur, gallop, rubs - Routine Abdominal Exam Present: soft. Absent: organomegaly - Routine Extremities Exam Absent: edema - Routine Neurological Exam Present: alert, oriented X3, CN II-XII intact. Absent: sensory deficit, motor deficit - Routine Psychiatric Exam Present: normal affect Results - Labs Laboratory Last Values WBC 4.1 X10^3/uL (4.5-11.0) L 06/09/20 08:20 RBC 3.95 X10^6/uL (4.5-5.9) L 06/09/20 08:20 Hgb 11.9 g/dL (13.5-17.5) L 06/09/20 08:20 Hct 36.3 % (41-53) L 06/09/20 08:20 MCV 91.8 fL (80-100) 06/09/20 08:20 MCH 30.3 PG (26-34) 06/09/20 08:20 MCHC 32.9 % (30-36) 06/09/20 08:20 RDW 14.8 % (11.6-14.8) 06/09/20 08:20 Plt Count 208 X10^3/uL (150-400) 06/09/20 08:20 Neut % (Auto) 54.2 % (50-75) 06/09/20 08:20 Lymph % (Auto) 22.6 % (25-40) L 06/09/20 08:20 [place] % (Auto) 14.4 % (3-14) H 06/09/20 08:20 Eos % (Auto) 7.9 % (2-4) H 06/09/20 08:20 Baso % (Auto) 0.9 % (0-2) 06/09/20 08:20 Neut # (Auto) 2200 /uL (1464-3449) 06/09/20 08:20 Lymph # (Auto) 900 /uL (7156-3741) L 06/09/20 08:20 [place] # (Auto) 600 /uL (0-900) 06/09/20 08:20 Eos # (Auto) 300 /uL (0-450) 06/09/20 08:20 Baso # (Auto) 0 /uL (0-100) 06/09/20 08:20 PT 56.3 SECONDS (10.1-12.7) H 06/09/20 08:20 INR 5.0 (0.9-1.3) H* 06/09/20 08:20 Sodium 137 mmol/L (137-145) 06/09/20 08:20 Potassium 4.8 mmol/L (3.4-5.1) 06/09/20 08:20 Chloride 104 mmol/L (98-107) 06/09/20 08:20 Carbon Dioxide 30 mmol/L (22-32) 06/09/20 08:20 BUN 18 mg/dL (9-20) 06/09/20 08:20 Creatinine 0.72 mg/dL (0.66-1.25) 06/09/20 08:20 Estimated GFR > 60.0 mL/min (>60) 06/09/20 08:20 BUN/Creatinine Ratio 25.0 (6-22) H 06/09/20 08:20 Glucose 93 mg/dL (80-110) 06/09/20 08:20 Calcium 9.4 mg/dL (8.4-10.2) 06/09/20 08:20 Total Bilirubin 0.6 mg/dL (0.2-1.3) 06/09/20 08:20 AST 32 IU/L (17-59) 06/09/20 08:20 ALT 12 IU/L (<50) 06/09/20 08:20 Alkaline Phosphatase 60 U/L (38-126) 06/09/20 08:20 Lactate Dehydrogenase 608 U/L (313-618) 06/09/20 08:20 Total Protein 6.1 g/dL (6.0-8.5) 06/09/20 08:20 Total Protein 6.8 g/dL (6.3-8.2) 06/09/20 08:20 Albumin 3.9 g/dL (2.9-4.4) 06/09/20 08:20 Albumin 4.4 g/dL (3.5-5.0) 06/09/20 08:20 Globulin 2.4 g/dL (1.7-4.1) 06/09/20 08:20 Albumin/Globulin Ratio 1.8 (1.0-2.8) 06/09/20 08:20 Albumin/Globulin Ratio 1.8 (0.7-1.7) H 06/09/20 08:20 Xmknp-7-Kvhidxaef 0.2 g/dL (0.0-0.4) 06/09/20 08:20 Evczf-8-Xmthodvxj 0.6 g/dL (0.4-1.0) 06/09/20 08:20 Beta Globulins 0.9 g/dL (0.7-1.3) 06/09/20 08:20 Hpxj-8-Ajzttrlygotmc 1.4 mg/L (0.6-2.4) 06/09/20 08:20 Gamma Globulins 0.5 g/dL (0.4-1.8) 06/09/20 08:20 Gamma Glob/Tot Protein 2.2 g/dL (2.2-3.9) 06/09/20 08:20 M-Shailesh Comment: g/dL (Not Observed) 06/09/20 08:20 U Free [place] Light Ch 113.31 mg/L (0.63-113.79) 06/09/20 08:20 U Free Lambda Light Ch 3.73 mg/L (0.47-11.77) 06/09/20 08:20 Tot [place]/Lambda Ratio 30.38 (1.03-31.76) 06/09/20 08:20 IgG, Serum (MS) 578 mg/dL (603-1613) L 05/07/20 09:11 Serum IgA 212 mg/dL (61-437) 06/09/20 08:20 Serum IgG 539 mg/dL (603-1613) L 06/09/20 08:20 Serum IgM 34 mg/dL (20-172) 06/09/20 08:20 IgA 224 mg/dL (61-437) 05/07/20 09:11 IgM 32 mg/dL (20-172) 05/07/20 09:11 KIRSTY Interpretation Comment: (.) 06/09/20 08:20 Free [place] Light Chains 417.5 05/07/20 09:11 Free Lambda Light Chain 7.4 05/07/20 09:11 Free Lambda LC, Quant Cancelled 05/07/20 09:11 Fr [place]& Lambda LC Qnt Cancelled 05/07/20 09:11 Fr Lambda/[place] Ratio 56.42 05/07/20 09:11 Ref Lab Notation Comment (.) 06/09/20 08:20 Assessment and Plan (1) Monoclonal gammopathy of undetermined significance Today, I reviewed the lab results with the patient. CBCs are stable. Serum CMPs are completely within the normal range. M-spike it is not quantifiable even though on the immunofixation, there is a trace amount of monoclonal IgA kappa. I talked with him that there is no evidence of progression of his underlying MGUS. I will continue current active surveillance. Plan: RTC in 12 months, repeat MM panel
[2022-02-17 14:22] VITALS: BP 139/80; PULSE 63; RESP 16; TEMP 36.5; O2SAT 99
--- NOTE | 2022-02-17 14:46 | P.PNONC_ITS ---
PN -Subjective - Date of Visit Date of visit: 02/17/22 Chief Complaint: Kush is a 60-year-old male who is followed in this clinic for the following diagnoses: Interval history: Inteirm Events: Patient presents here today for scheduled follow-up visit. No new signs or symptoms Hematology: 1. Longstanding history of borderline/normochromic/normocytic anemia. Observation only. 2. 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 3. Known history of hereditary thrombophilia. 4. Prior deep venous thrombosis (DVT) in his right lower extremity years ago. On maintenance Coumadin. 5. Concurrent factor V Leiden mutation. 6. Prior gastric outlet obstruction surgery, 12+ years ago, resulting in removal of a small segment of his proximal small bowel. - Patient Self-Reported Symptoms SR Constitution: Fatigue/Malaise SR respiratory issues: Shortness of breath SR Skin issues: Dry skin SR Musculoskeletal issues: Back or neck pain SR Hematologic issues: Bleeding/bruising Home Medications and Allergies Home Medications Medication Instructions Recorded Confirmed Type thyroid (pork) 65 mg tablet 65 mg PO DAILY 06/22/20 12/17/21 History (Nature-Throid) acetaminophen 325 mg capsule PRN 01/11/21 12/17/21 History (Tylenol) Ernie: D-5,000 1 tab PO DAILY 05/19/21 12/17/21 History Ernie: Glustathione-SR 1 tab PO DAILY 05/19/21 12/17/21 History Ernie: Men's Multi 2 tab PO DAILY 05/19/21 12/17/21 History Ernie: Milk Thistle Phytosome 1 tab PO DAILY 05/19/21 12/17/21 History warfarin 5 mg tablet See Rx Instructions .ROUTE 11/08/21 12/17/21 Rx .COMPLEX #90 tab Allergies Allergy/AdvReac Type Severity Reaction Status Date / Time No Known Drug Allergies Allergy Verified 12/17/21 09:24 Exam Vital signs: Vital Signs Temp Pulse Resp BP Pulse Ox 02/17/22 14:22 97.7 F 63 16 139/80 99 Intake and Output 02/16/22 02/17/22 02/17/22 23:59 07:59 15:59 Other: Weight 72.9 kg Patient Weight 02/17/22 23:59 Weight 72.9 kg Narrative: He appears comfortable, pleasance and cooperative. Results - Labs Laboratory Last Values WBC 4.1 X10^3/uL (4.5-11.0) L 06/09/20 08:20 RBC 3.95 X10^6/uL (4.5-5.9) L 06/09/20 08:20 Hgb 11.9 g/dL (13.5-17.5) L 06/09/20 08:20 Hct 36.3 % (41-53) L 06/09/20 08:20 MCV 91.8 fL (80-100) 06/09/20 08:20 MCH 30.3 PG (26-34) 06/09/20 08:20 MCHC 32.9 % (30-36) 06/09/20 08:20 RDW 14.8 % (11.6-14.8) 06/09/20 08:20 Plt Count 208 X10^3/uL (150-400) 06/09/20 08:20 Neut % (Auto) 54.2 % (50-75) 06/09/20 08:20 Lymph % (Auto) 22.6 % (25-40) L 06/09/20 08:20 [place] % (Auto) 14.4 % (3-14) H 06/09/20 08:20 Eos % (Auto) 7.9 % (2-4) H 06/09/20 08:20 Baso % (Auto) 0.9 % (0-2) 06/09/20 08:20 Neut # (Auto) 2200 /uL (5845-6365) 06/09/20 08:20 Lymph # (Auto) 900 /uL (5592-0939) L 06/09/20 08:20 [place] # (Auto) 600 /uL (0-900) 06/09/20 08:20 Eos # (Auto) 300 /uL (0-450) 06/09/20 08:20 Baso # (Auto) 0 /uL (0-100) 06/09/20 08:20 PT 56.3 SECONDS (10.1-12.7) H 06/09/20 08:20 INR 5.0 (0.9-1.3) H* 06/09/20 08:20 Sodium 137 mmol/L (137-145) 06/09/20 08:20 Potassium 4.8 mmol/L (3.4-5.1) 06/09/20 08:20 Chloride 104 mmol/L (98-107) 06/09/20 08:20 Carbon Dioxide 30 mmol/L (22-32) 06/09/20 08:20 BUN 18 mg/dL (9-20) 06/09/20 08:20 Creatinine 0.72 mg/dL (0.66-1.25) 06/09/20 08:20 Estimated GFR > 60.0 mL/min (>60) 06/09/20 08:20 BUN/Creatinine Ratio 25.0 (6-22) H 06/09/20 08:20 Glucose 93 mg/dL (80-110) 06/09/20 08:20 Calcium 9.4 mg/dL (8.4-10.2) 06/09/20 08:20 Total Bilirubin 0.6 mg/dL (0.2-1.3) 06/09/20 08:20 AST 32 IU/L (17-59) 06/09/20 08:20 ALT 12 IU/L (<50) 06/09/20 08:20 Alkaline Phosphatase 60 U/L (38-126) 06/09/20 08:20 Lactate Dehydrogenase 608 U/L (313-618) 06/09/20 08:20 Total Protein 6.1 g/dL (6.0-8.5) 06/09/20 08:20 Total Protein 6.8 g/dL (6.3-8.2) 06/09/20 08:20 Albumin 3.9 g/dL (2.9-4.4) 06/09/20 08:20 Albumin 4.4 g/dL (3.5-5.0) 06/09/20 08:20 Globulin 2.4 g/dL (1.7-4.1) 06/09/20 08:20 Albumin/Globulin Ratio 1.8 (1.0-2.8) 06/09/20 08:20 Albumin/Globulin Ratio 1.8 (0.7-1.7) H 06/09/20 08:20 Wnacq-2-Llhcezlgn 0.2 g/dL (0.0-0.4) 06/09/20 08:20 Uodlz-7-Wabznnlef 0.6 g/dL (0.4-1.0) 06/09/20 08:20 Beta Globulins 0.9 g/dL (0.7-1.3) 06/09/20 08:20 Isje-0-Ixqjdelbzsoeq 1.4 mg/L (0.6-2.4) 06/09/20 08:20 Gamma Globulins 0.5 g/dL (0.4-1.8) 06/09/20 08:20 Gamma Glob/Tot Protein 2.2 g/dL (2.2-3.9) 06/09/20 08:20 M-Shailesh Comment: g/dL (Not Observed) 06/09/20 08:20 U Free [place] Light Ch 113.31 mg/L (0.63-113.79) 06/09/20 08:20 U Free Lambda Light Ch 3.73 mg/L (0.47-11.77) 06/09/20 08:20 Tot [place]/Lambda Ratio 30.38 (1.03-31.76) 06/09/20 08:20 IgG, Serum (MS) 578 mg/dL (603-1613) L 05/07/20 09:11 Serum IgA 212 mg/dL (61-437) 06/09/20 08:20 Serum IgG 539 mg/dL (603-1613) L 06/09/20 08:20 Serum IgM 34 mg/dL (20-172) 06/09/20 08:20 IgA 224 mg/dL (61-437) 05/07/20 09:11 IgM 32 mg/dL (20-172) 05/07/20 09:11 KIRSTY Interpretation Comment: (.) 06/09/20 08:20 Free [place] Light Chains 417.5 05/07/20 09:11 Free Lambda Light Chain 7.4 05/07/20 09:11 Free Lambda LC, Quant Cancelled 05/07/20 09:11 Fr [place]& Lambda LC Qnt Cancelled 05/07/20 09:11 Fr Lambda/[place] Ratio 56.42 05/07/20 09:11 Ref Lab Notation Comment (.) 06/09/20 08:20 Assessment and Plan (1) Monoclonal gammopathy of undetermined significance Today, I reviewed the lab results with the patient. CBC and CMP are unremarkable and M spike is too low to be quantified. However the serum free light chain especially the kappa light chain has increased slightly. And the ratio is persistently above 20. Patient clinically is complaining symptoms of fatigue. As a child, patient has a history of left lung disease which patient could not remember. 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 Clinically, he does not have any were not organ damages. I am going to obtain a checks x-ray as well as EKG to evaluate the cardiac issues. I will have the patient come back in 2 months to re-evaluate and repeat the labs. Will discuss with the patient about possibly repeat bone marrow aspiration and biopsy. wero: EKG CXR RTC in 2 months, CBC ,CMP, MM penal
[2022-04-14 16:20] VITALS: BP 135/66; PULSE 60; RESP 16; TEMP 36.6; O2SAT 97
--- NOTE | 2022-04-14 16:30 | ONC.PN ---
PN -Subjective - Date of Visit Date of visit: 04/14/22 Chief Complaint: Kush is a 61-year-old male MGUS Interval history: Inteirm Events: Patient presents here today for scheduled follow-up visit. No new signs or symptoms Hematology: 1. Longstanding history of borderline/normochromic/normocytic anemia. Observation only. 2. 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 3. Known history of hereditary thrombophilia. 4. Prior deep venous thrombosis (DVT) in his right lower extremity years ago. On maintenance Coumadin. 5. Concurrent factor V Leiden mutation. 6. Prior gastric outlet obstruction surgery, 12+ years ago, resulting in removal of a small segment of his proximal small bowel. - Patient Self-Reported Symptoms SR Constitution: Fatigue/Malaise SR respiratory issues: Shortness of breath SR Skin issues: Dry skin SR Musculoskeletal issues: Back or neck pain SR Hematologic issues: Bleeding/bruising Home Medications and Allergies Home Medications Medication Instructions Recorded Confirmed Type thyroid (pork) 65 mg tablet 65 mg PO DAILY 06/22/20 12/17/21 History (Nature-Throid) acetaminophen 325 mg capsule PRN 01/11/21 12/17/21 History (Tylenol) Ernie: D-5,000 1 tab PO DAILY 05/19/21 12/17/21 History Ernie: Glustathione-SR 1 tab PO DAILY 05/19/21 12/17/21 History Ernie: Men's Multi 2 tab PO DAILY 05/19/21 12/17/21 History Ernie: Milk Thistle Phytosome 1 tab PO DAILY 05/19/21 12/17/21 History warfarin 5 mg tablet See Rx Instructions .ROUTE 11/08/21 12/17/21 Rx .COMPLEX #90 tab Allergies Allergy/AdvReac Type Severity Reaction Status Date / Time No Known Drug Allergies Allergy Verified 12/17/21 09:24 Exam Vital signs: Vital Signs Temp Pulse Resp BP Pulse Ox 04/14/22 16:20 97.8 F 60 16 135/66 97 Intake and Output 04/14/22 04/14/22 04/14/22 07:59 15:59 23:59 Other: Weight 72.4 kg Patient Weight 04/14/22 23:59 Weight 72.4 kg Narrative: He appears comfortable, pleasance and cooperative. Results - Labs Laboratory Last Values WBC 4.1 X10^3/uL (4.5-11.0) L 06/09/20 08:20 RBC 3.95 X10^6/uL (4.5-5.9) L 06/09/20 08:20 Hgb 11.9 g/dL (13.5-17.5) L 06/09/20 08:20 Hct 36.3 % (41-53) L 06/09/20 08:20 MCV 91.8 fL (80-100) 06/09/20 08:20 MCH 30.3 PG (26-34) 06/09/20 08:20 MCHC 32.9 % (30-36) 06/09/20 08:20 RDW 14.8 % (11.6-14.8) 06/09/20 08:20 Plt Count 208 X10^3/uL (150-400) 06/09/20 08:20 Neut % (Auto) 54.2 % (50-75) 06/09/20 08:20 Lymph % (Auto) 22.6 % (25-40) L 06/09/20 08:20 [place] % (Auto) 14.4 % (3-14) H 06/09/20 08:20 Eos % (Auto) 7.9 % (2-4) H 06/09/20 08:20 Baso % (Auto) 0.9 % (0-2) 06/09/20 08:20 Neut # (Auto) 2200 /uL (7400-3026) 06/09/20 08:20 Lymph # (Auto) 900 /uL (0732-8084) L 06/09/20 08:20 [place] # (Auto) 600 /uL (0-900) 06/09/20 08:20 Eos # (Auto) 300 /uL (0-450) 06/09/20 08:20 Baso # (Auto) 0 /uL (0-100) 06/09/20 08:20 PT 56.3 SECONDS (10.1-12.7) H 06/09/20 08:20 INR 5.0 (0.9-1.3) H* 06/09/20 08:20 Sodium 137 mmol/L (137-145) 06/09/20 08:20 Potassium 4.8 mmol/L (3.4-5.1) 06/09/20 08:20 Chloride 104 mmol/L (98-107) 06/09/20 08:20 Carbon Dioxide 30 mmol/L (22-32) 06/09/20 08:20 BUN 18 mg/dL (9-20) 06/09/20 08:20 Creatinine 0.72 mg/dL (0.66-1.25) 06/09/20 08:20 Estimated GFR > 60.0 mL/min (>60) 06/09/20 08:20 BUN/Creatinine Ratio 25.0 (6-22) H 06/09/20 08:20 Glucose 93 mg/dL (80-110) 06/09/20 08:20 Calcium 9.4 mg/dL (8.4-10.2) 06/09/20 08:20 Total Bilirubin 0.6 mg/dL (0.2-1.3) 06/09/20 08:20 AST 32 IU/L (17-59) 06/09/20 08:20 ALT 12 IU/L (<50) 06/09/20 08:20 Alkaline Phosphatase 60 U/L (38-126) 06/09/20 08:20 Lactate Dehydrogenase 608 U/L (313-618) 06/09/20 08:20 Total Protein 6.1 g/dL (6.0-8.5) 06/09/20 08:20 Total Protein 6.8 g/dL (6.3-8.2) 06/09/20 08:20 Albumin 3.9 g/dL (2.9-4.4) 06/09/20 08:20 Albumin 4.4 g/dL (3.5-5.0) 06/09/20 08:20 Globulin 2.4 g/dL (1.7-4.1) 06/09/20 08:20 Albumin/Globulin Ratio 1.8 (1.0-2.8) 06/09/20 08:20 Albumin/Globulin Ratio 1.8 (0.7-1.7) H 06/09/20 08:20 Iaeaw-1-Wnathllkk 0.2 g/dL (0.0-0.4) 06/09/20 08:20 Vulrm-1-Sxhvnwyjq 0.6 g/dL (0.4-1.0) 06/09/20 08:20 Beta Globulins 0.9 g/dL (0.7-1.3) 06/09/20 08:20 Jqgn-5-Fhsjgfbmhkdfy 1.4 mg/L (0.6-2.4) 06/09/20 08:20 Gamma Globulins 0.5 g/dL (0.4-1.8) 06/09/20 08:20 Gamma Glob/Tot Protein 2.2 g/dL (2.2-3.9) 06/09/20 08:20 M-Shailesh Comment: g/dL (Not Observed) 06/09/20 08:20 U Free [place] Light Ch 113.31 mg/L (0.63-113.79) 06/09/20 08:20 U Free Lambda [place] Ch 3.73 mg/L (0.47-11.77) 06/09/20 08:20 Tot [place]/Lambda Ratio 30.38 (1.03-31.76) 06/09/20 08:20 IgG, Serum (MS) 578 mg/dL (603-1613) L 05/07/20 09:11 Serum IgA 212 mg/dL (61-437) 06/09/20 08:20 Serum IgG 539 mg/dL (603-1613) L 06/09/20 08:20 Serum IgM 34 mg/dL (20-172) 06/09/20 08:20 IgA 224 mg/dL (61-437) 05/07/20 09:11 IgM 32 mg/dL (20-172) 05/07/20 09:11 KIRSTY Interpretation Comment: (.) 06/09/20 08:20 Free [place] Light Chains 417.5 05/07/20 09:11 Free Lambda Light Chain 7.4 05/07/20 09:11 Free Lambda LC, Quant Cancelled 05/07/20 09:11 Fr [place]& Lambda LC Qnt Cancelled 05/07/20 09:11 Fr Lambda/[place] Ratio 56.42 05/07/20 09:11 Ref Lab Notation Comment (.) 06/09/20 08:20 Assessment and Plan (1) Monoclonal gammopathy of undetermined significance Today, I reviewed the lab results with the patient. CBC and CMP are unremarkable and Again M spike is too low to be quantified. However the serum free light chain especially the kappa light chain continues to increase. The EKG showed normal sinus rhythm and possible left atrial enlargement. It also showed left ventricular hypertrophy. The chest x-ray showed no cardiomegaly. This findings are not consistent with amyloidosis. I talked with the patient that I am recommending we continue current active surveillance. Summers: RTC in 6 months, CBC ,CMP, MM panel
--- NOTE | 2022-10-17 15:02 | P.PNONC_ITS ---
PN -Subjective - Date of Visit Date of visit: 10/17/22 Chief Complaint: Kush is a 62-year-old male MGUS Interval history: Patient presents here today for scheduled follow-up visit. No new signs or symptoms Hematology: 1. Longstanding history of borderline/normochromic/normocytic anemia. Observation only. 2. 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 3. Known history of hereditary thrombophilia. 4. Prior deep venous thrombosis (DVT) in his right lower extremity years ago. On maintenance Coumadin. 5. Concurrent factor V Leiden mutation. 6. Prior gastric outlet obstruction surgery, 12+ years ago, resulting in removal of a small segment of his proximal small bowel. - Patient Self-Reported Symptoms SR Constitution: Fatigue/Malaise SR respiratory issues: Shortness of breath SR Skin issues: Dry skin SR Musculoskeletal issues: Back or neck pain SR Hematologic issues: Bleeding/bruising - ROS All Systems: reviewed and no additional remarkable complaints except as stated Home Medications and Allergies Home Medications Medication Instructions Recorded Confirmed Type thyroid (pork) 65 mg tablet 65 mg PO DAILY 06/22/20 10/11/22 History (Nature-Throid) acetaminophen 325 mg capsule PRN Back Pain 01/11/21 10/11/22 History (Tylenol) Ernie: D-5,000 1 tab PO DAILY 05/19/21 10/11/22 History Ernie: Glustathione-SR 1 tab PO DAILY 05/19/21 10/11/22 History Ernie: Men's Multi 2 tab PO DAILY 05/19/21 10/11/22 History Ernie: Milk Thistle Phytosome 1 tab PO DAILY 05/19/21 10/11/22 History warfarin 5 mg tablet See Rx Instructions .Route 09/16/22 10/11/22 Rx .COMPLEX #90 tabs trazodone 50 mg tablet 50 - 100 mg PO BEDTIME PRN 10/11/22 10/11/22 Rx insomnia #90 tabs Allergies Allergy/AdvReac Type Severity Reaction Status Date / Time No Known Drug Allergies Allergy Verified 10/11/22 07:43 Exam Vital signs: 10/17/22 17:20 Last Vital Signs Temp 96.6 F L 10/17/22 15:25 Pulse 69 10/17/22 15:25 Resp 16 10/17/22 15:25 BP 148/75 H 10/17/22 15:25 Pulse Ox 99 10/17/22 15:25 Narrative: He appears comfortable, pleasance and cooperative. Results - Labs Laboratory Last Values WBC 4.1 X10^3/uL (4.5-11.0) L 06/09/20 08:20 RBC 3.95 X10^6/uL (4.5-5.9) L 06/09/20 08:20 Hgb 11.9 g/dL (13.5-17.5) L 06/09/20 08:20 Hct 36.3 % (41-53) L 06/09/20 08:20 MCV 91.8 fL (80-100) 06/09/20 08:20 MCH 30.3 PG (26-34) 06/09/20 08:20 MCHC 32.9 % (30-36) 06/09/20 08:20 RDW 14.8 % (11.6-14.8) 06/09/20 08:20 Plt Count 208 X10^3/uL (150-400) 06/09/20 08:20 Neut % (Auto) 54.2 % (50-75) 06/09/20 08:20 Lymph % (Auto) 22.6 % (25-40) L 06/09/20 08:20 [place] % (Auto) 14.4 % (3-14) H 06/09/20 08:20 Eos % (Auto) 7.9 % (2-4) H 06/09/20 08:20 Baso % (Auto) 0.9 % (0-2) 06/09/20 08:20 Neut # (Auto) 2200 /uL (8301-8544) 06/09/20 08:20 Lymph # (Auto) 900 /uL (4181-0618) L 06/09/20 08:20 [place] # (Auto) 600 /uL (0-900) 06/09/20 08:20 Eos # (Auto) 300 /uL (0-450) 06/09/20 08:20 Baso # (Auto) 0 /uL (0-100) 06/09/20 08:20 PT 56.3 SECONDS (10.1-12.7) H 06/09/20 08:20 INR 5.0 (0.9-1.3) H* 06/09/20 08:20 Sodium 137 mmol/L (137-145) 06/09/20 08:20 Potassium 4.8 mmol/L (3.4-5.1) 06/09/20 08:20 Chloride 104 mmol/L (98-107) 06/09/20 08:20 Carbon Dioxide 30 mmol/L (22-32) 06/09/20 08:20 BUN 18 mg/dL (9-20) 06/09/20 08:20 Creatinine 0.72 mg/dL (0.66-1.25) 06/09/20 08:20 Estimated GFR > 60.0 mL/min (>60) 06/09/20 08:20 BUN/Creatinine Ratio 25.0 (6-22) H 06/09/20 08:20 Glucose 93 mg/dL (80-110) 06/09/20 08:20 Calcium 9.4 mg/dL (8.4-10.2) 06/09/20 08:20 Total Bilirubin 0.6 mg/dL (0.2-1.3) 06/09/20 08:20 AST 32 IU/L (17-59) 06/09/20 08:20 ALT 12 IU/L (<50) 06/09/20 08:20 Alkaline Phosphatase 60 U/L (38-126) 06/09/20 08:20 Lactate Dehydrogenase 608 U/L (313-618) 06/09/20 08:20 Total Protein 6.1 g/dL (6.0-8.5) 06/09/20 08:20 Total Protein 6.8 g/dL (6.3-8.2) 06/09/20 08:20 Albumin 3.9 g/dL (2.9-4.4) 06/09/20 08:20 Albumin 4.4 g/dL (3.5-5.0) 06/09/20 08:20 Globulin 2.4 g/dL (1.7-4.1) 06/09/20 08:20 Albumin/Globulin Ratio 1.8 (1.0-2.8) 06/09/20 08:20 Albumin/Globulin Ratio 1.8 (0.7-1.7) H 06/09/20 08:20 Fnddg-2-Wbzfywqkl 0.2 g/dL (0.0-0.4) 06/09/20 08:20 Rytyy-4-Ynxvysxdc 0.6 g/dL (0.4-1.0) 06/09/20 08:20 Beta Globulins 0.9 g/dL (0.7-1.3) 06/09/20 08:20 Zpqu-7-Nsxjvfzckqgww 1.4 mg/L (0.6-2.4) 06/09/20 08:20 Gamma Globulins 0.5 g/dL (0.4-1.8) 06/09/20 08:20 Gamma Glob/Tot Protein 2.2 g/dL (2.2-3.9) 06/09/20 08:20 M-Shailesh Comment: g/dL (Not Observed) 06/09/20 08:20 U Free [place] Light Ch 113.31 mg/L (0.63-113.79) 06/09/20 08:20 U Free Lambda Light Ch 3.73 mg/L (0.47-11.77) 06/09/20 08:20 Tot [place]/Lambda Ratio 30.38 (1.03-31.76) 06/09/20 08:20 IgG, Serum (MS) 578 mg/dL (603-1613) L 05/07/20 09:11 Serum IgA 212 mg/dL (61-437) 06/09/20 08:20 Serum IgG 539 mg/dL (603-1613) L 06/09/20 08:20 Serum IgM 34 mg/dL (20-172) 06/09/20 08:20 IgA 224 mg/dL (61-437) 05/07/20 09:11 IgM 32 mg/dL (20-172) 05/07/20 09:11 KIRSTY Interpretation Comment: (.) 06/09/20 08:20 Free [place] Light Chains 417.5 05/07/20 09:11 Free Lambda Light Chain 7.4 05/07/20 09:11 Free Lambda LC, Quant Cancelled 05/07/20 09:11 Fr [place]& Lambda LC Qnt Cancelled 05/07/20 09:11 Fr Lambda/[place] Ratio 56.42 05/07/20 09:11 Ref Lab Notation Comment (.) 06/09/20 08:20 Assessment and Plan (1) Monoclonal gammopathy of undetermined significance Kush is a 62 year old presented initially with anemia and hypogammaglobuminemia. BMA/Bx on 11/23/2015 showed 5-8% plasma cells with mildly elevated kappa:lambda ratio of 6:1 supporting the diagnosis of MGUS. but SPEP showed no monoclonal protein. He has been on active surveillance since. Today, I reviewed the labs with the patient. While the CBC have remained stable, the serum free kappa light chain has increased significantly from previous 580.4 on 01/26/2022 to 636.7 on 10/11/2022. The kappa/lambda ratio also has increased from 58.63 ot 79.59 respectively. I talked with the patient that I am recommending that we repeat a bone marrow aspiration and biopsy. Patient voiced understanding. Summers: Repeat SPEP, IFIX, SFLC, B2M today RTC in 2-3 weeks, BMA/Bx.
[2022-10-17 15:25] VITALS: BP 148/75; PULSE 69; RESP 16; TEMP 35.9; O2SAT 99
[2022-10-17 16:37] LABS: Lactate Dehydrogenase 229 U/L (120-246)
--- NOTE | 2022-10-18 11:24 | ONC.SCHED ---
BMBX follow-up: I called and LVM for patient with the information for his BMBX. It is scheduled for 11/10/2022 at 1120am. I let him know to call us back if he had questions about his appointment.
[2022-10-19 16:16] LABS: Free Kappa Lt Chains, Serum 694.4 mg/L (3.3-19.4); Free Lambda Lt Chains,Serum 9.5 mg/L (5.7-26.3)
[2022-10-20 14:56] LABS: Albumin 4.3 g/dL (2.9-4.4); Alpha-1-Globulin 0.2 g/dL (0.0-0.4); Alpha-2-Globulin 0.6 g/dL (0.4-1.0); Gamma Globulin 0.6 g/dL (0.4-1.8); Globulin Total 2.4 g/dL (2.2-3.9); Immunoglobulin A, Serum 196 mg/dL (61-437); Immunoglobulin G,Serum 588 mg/dL (603-1613); Immunoglobulin M, Serum 39 mg/dL (20-172); Protein, Total 6.7 g/dL (6.0-8.5)
--- NOTE | 2022-11-10 11:41 | P.PNONC_ITS ---
PN -Subjective - Date of Visit Date of visit: 11/10/22 Chief Complaint: Kush is a 62-year-old male MGUS Interval history: Patient presents here today for scheduled follow-up visit. No new signs or symptoms Hematology: 1. Longstanding history of borderline/normochromic/normocytic anemia. Observation only. 2. 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 3. Known history of hereditary thrombophilia. 4. Prior deep venous thrombosis (DVT) in his right lower extremity years ago. On maintenance Coumadin. 5. Concurrent factor V Leiden mutation. 6. Prior gastric outlet obstruction surgery, 12+ years ago, resulting in removal of a small segment of his proximal small bowel. - Patient Self-Reported Symptoms SR Constitution: Fatigue/Malaise SR respiratory issues: Shortness of breath SR Skin issues: Dry skin SR Musculoskeletal issues: Back or neck pain SR Hematologic issues: Bleeding/bruising - ROS All Systems: reviewed and no additional remarkable complaints except as stated Home Medications and Allergies Home Medications Medication Instructions Recorded Confirmed Type thyroid (pork) 65 mg tablet 65 mg PO DAILY 06/22/20 10/11/22 History (Nature-Throid) acetaminophen 325 mg capsule PRN Back Pain 01/11/21 10/11/22 History (Tylenol) Ernie: D-5,000 1 tab PO DAILY 05/19/21 10/11/22 History Ernie: Glustathione-SR 1 tab PO DAILY 05/19/21 10/11/22 History Ernie: Men's Multi 2 tab PO DAILY 05/19/21 10/11/22 History Ernie: Milk Thistle Phytosome 1 tab PO DAILY 05/19/21 10/11/22 History warfarin 5 mg tablet See Rx Instructions .Route 09/16/22 10/11/22 Rx .COMPLEX #90 tabs trazodone 50 mg tablet 50 - 100 mg PO BEDTIME PRN 10/11/22 10/11/22 Rx insomnia #90 tabs Allergies Allergy/AdvReac Type Severity Reaction Status Date / Time No Known Drug Allergies Allergy Verified 10/11/22 07:43 Exam Narrative: He appears comfortable, pleasance and cooperative. Results - Labs Laboratory Last Values WBC 4.1 X10^3/uL (4.5-11.0) L 06/09/20 08:20 RBC 3.95 X10^6/uL (4.5-5.9) L 06/09/20 08:20 Hgb 11.9 g/dL (13.5-17.5) L 06/09/20 08:20 Hct 36.3 % (41-53) L 06/09/20 08:20 MCV 91.8 fL (80-100) 06/09/20 08:20 MCH 30.3 PG (26-34) 06/09/20 08:20 MCHC 32.9 % (30-36) 06/09/20 08:20 RDW 14.8 % (11.6-14.8) 06/09/20 08:20 Plt Count 208 X10^3/uL (150-400) 06/09/20 08:20 Neut % (Auto) 54.2 % (50-75) 06/09/20 08:20 Lymph % (Auto) 22.6 % (25-40) L 06/09/20 08:20 [place] % (Auto) 14.4 % (3-14) H 06/09/20 08:20 Eos % (Auto) 7.9 % (2-4) H 06/09/20 08:20 Baso % (Auto) 0.9 % (0-2) 06/09/20 08:20 Neut # (Auto) 2200 /uL (7702-6321) 06/09/20 08:20 Lymph # (Auto) 900 /uL (6714-4161) L 06/09/20 08:20 [place] # (Auto) 600 /uL (0-900) 06/09/20 08:20 Eos # (Auto) 300 /uL (0-450) 06/09/20 08:20 Baso # (Auto) 0 /uL (0-100) 06/09/20 08:20 PT 56.3 SECONDS (10.1-12.7) H 06/09/20 08:20 INR 5.0 (0.9-1.3) H* 06/09/20 08:20 Sodium 137 mmol/L (137-145) 06/09/20 08:20 Potassium 4.8 mmol/L (3.4-5.1) 06/09/20 08:20 Chloride 104 mmol/L (98-107) 06/09/20 08:20 Carbon Dioxide 30 mmol/L (22-32) 06/09/20 08:20 BUN 18 mg/dL (9-20) 06/09/20 08:20 Creatinine 0.72 mg/dL (0.66-1.25) 06/09/20 08:20 Estimated GFR > 60.0 mL/min (>60) 06/09/20 08:20 BUN/Creatinine Ratio 25.0 (6-22) H 06/09/20 08:20 Glucose 93 mg/dL (80-110) 06/09/20 08:20 Calcium 9.4 mg/dL (8.4-10.2) 06/09/20 08:20 Total Bilirubin 0.6 mg/dL (0.2-1.3) 06/09/20 08:20 AST 32 IU/L (17-59) 06/09/20 08:20 ALT 12 IU/L (<50) 06/09/20 08:20 Alkaline Phosphatase 60 U/L (38-126) 06/09/20 08:20 Lactate Dehydrogenase 229 U/L (120-246) 10/17/22 15:58 Total Protein 6.1 g/dL (6.0-8.5) 06/09/20 08:20 Total Protein 6.8 g/dL (6.3-8.2) 06/09/20 08:20 Albumin 3.9 g/dL (2.9-4.4) 06/09/20 08:20 Albumin 4.4 g/dL (3.5-5.0) 06/09/20 08:20 Globulin 2.4 g/dL (1.7-4.1) 06/09/20 08:20 Albumin/Globulin Ratio 1.8 (1.0-2.8) 06/09/20 08:20 Albumin/Globulin Ratio 1.8 (0.7-1.7) H 06/09/20 08:20 Total Protein (PEP) 6.7 g/dL (6.0-8.5) 10/17/22 15:58 Zzqu-6-Ynfeziwpsqggj 1.4 mg/L (0.6-2.4) 06/09/20 08:20 Albumin (PEP) 4.3 g/dL (2.9-4.4) 10/17/22 15:58 Albumin/Globulin (PEP) 1.8 (0.7-1.7) H 10/17/22 15:58 Immwj-1-Pwkbbgsuv 0.2 g/dL (0.0-0.4) 10/17/22 15:58 Gpnwl-1-Hbsrzjyuo 0.6 g/dL (0.4-1.0) 10/17/22 15:58 Beta Globulins 0.9 g/dL (0.7-1.3) 10/17/22 15:58 Gamma Globulins 0.6 g/dL (0.4-1.8) 10/17/22 15:58 Gamma Glob/Tot Protein 2.4 g/dL (2.2-3.9) 10/17/22 15:58 M-Shailesh Comment: g/dL (Not Observed) 10/17/22 15:58 U Free [place] Light Ch 113.31 mg/L (0.63-113.79) 06/09/20 08:20 U Free Lambda Light Ch 3.73 mg/L (0.47-11.77) 06/09/20 08:20 Tot [place]/Lambda Ratio 30.38 (1.03-31.76) 06/09/20 08:20 IgG, Serum (MS) 578 mg/dL (603-1613) L 05/07/20 09:11 Serum IgA 196 mg/dL (61-437) 10/17/22 15:58 Serum IgG 588 mg/dL (603-1613) L 10/17/22 15:58 Serum IgM 39 mg/dL (20-172) 10/17/22 15:58 IgA 224 mg/dL (61-437) 05/07/20 09:11 IgM 32 mg/dL (20-172) 05/07/20 09:11 KIRSTY Interpretation Comment: (.) 10/17/22 15:58 Free Lambda LC, Quant Cancelled 05/07/20 09:11 Fr [place]& Lambda LC Qnt Cancelled 05/07/20 09:11 Fr Lambda/[place] Ratio 56.42 05/07/20 09:11 Free [place] Light Chains 694.4 mg/L (3.3-19.4) H 10/17/22 15:58 Free [place] Light Chain 9.5 mg/L (5.7-26.3) 10/17/22 15:58 Free [place]/Lambda Ratio 73.09 (0.26-1.65) H 10/17/22 15:58 Ref Lab Notation Comment (.) 10/17/22 15:58 Assessment and Plan (1) Monoclonal gammopathy of undetermined significance Kush is a 62 year old who presented initially with anemia and hypogammaglobuminemia. BMA/Bx on 11/23/2015 showed 5-8% plasma cells with mildly elevated kappa:lambda ratio of 6:1 supporting the diagnosis of MGUS. but SPEP showed no monoclonal protein. He has been on active surveillance since. Today, I reviewed the labs with the patient. While the CBC have remained stable, the serum free kappa light chain has increased significantly from previous 580.4 on 01/26/2022 to 636.7 on 10/11/2022. The kappa/lambda ratio also has increased from 58.63 ot 79.59 respectively. I talked with the patient that I am recommending that we repeat a bone marrow aspiration and biopsy. Patient voiced understanding. Summers: Repeat SPEP, IFIX, SFLC, B2M today RTC in 2-3 weeks, BMA/Bx.
--- NOTE | 2022-11-10 12:12 | ONC.PROCEDUR ---
Date of procedure: 11/10/22 Diagnosis: MGUS IgA [place] Onc Bone Marrow: bone marrow biopsy and aspiration Procedure: Patient was instructed to lie on his left side. Right posterior iliac crest was identified, sterilized, and draped per standard protocol. Local anesthesia was obtained with injection of 5ml of 2% lidocaine. Bone marrow aspiration needle was inserted without difficulty. I initially aspirated forcefully about 0.5 cc of bone marrow sample and handed out for slide preparation. Then I aspirated 20 cc of bone marrow for sample preparation. I removed the aspiration needle, and inserted the [place] core needle biopsy. I obtained successfully a 3 cm long core sample. Patient tolerated the procedure well. No immediate complications. Patient was instructed to lie on his back for about 10-15 minutes. RTC in 4 weeks for review of the results.
[2022-11-10 13:10] LABS: Add Manual Diff / Slide Review NO; Basophils Absolute Auto 0 /uL (0-100); Basophils Percent Auto 0.6 % (0-2); Eosinophils Absolute Auto 200 /uL (0-450); Hematocrit 37.2 % (41-53); Hemoglobin 12.3 g/dL (13.5-17.5); Lymphocytes Absolute Auto 1000 /uL (1100-4500); Lymphocytes Percent Auto 15.7 % (25-40); Mean Corpuscular HGB Conc 33.1 % (30-36); Mean Corpuscular Hemoglobin 30.8 PG (26-34); Monocytes Absolute Auto 700 /uL (0-900); Monocytes Percent Auto 10.8 % (3-14); Neutrophils Absolute Auto 4300 /uL (1500-7000); Neutrophils Percent Auto 68.9 % (50-75); Platelet Count 221 X10^3/uL (150-400); Red Cell Distribution Width 14.7 % (11.6-14.8); White Blood Cell Count 6.3 X10^3/uL (4.5-11.0)
[2022-12-19 10:57] VITALS: BP 145/70; PULSE 72; RESP 16; TEMP 35.9; O2SAT 100
--- NOTE | 2022-12-19 11:02 | ONC.PN ---
PN -Subjective - Date of Visit Date of visit: 12/20/22 Chief Complaint: Kush is a 62-year-old male MGUS Interval history: Due to rising free light chain ratio, we obtained bone marrow aspiration and biopsy on 11/10/2022. The final pathology showed plasma cell neoplasm involving bone marrow comprising 10-15% of marrow cellularity. Concurrent flow cytometry demonstrated an abnormal plasma cell population, kappa light chain restricted with CD56 expression. Cytogenetic analysis showed normal male karyotype 46, XY[20]. MM FISH were positive for extra 1q signals, three IgH signals, and three 9q signals. Results for 13q and TP53 were normal. Patient presents here today for scheduled follow-up visit. No new signs or symptoms Hematology: 1. Longstanding history of borderline/normochromic/normocytic anemia. Observation only. 2. 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 3. Known history of hereditary thrombophilia. 4. Prior deep venous thrombosis (DVT) in his right lower extremity years ago. On maintenance Coumadin. 5. Concurrent factor V Leiden mutation. 6. Prior gastric outlet obstruction surgery, 12+ years ago, resulting in removal of a small segment of his proximal small bowel. - Patient Self-Reported Symptoms SR Constitution: Fatigue/Malaise SR respiratory issues: Shortness of breath SR Skin issues: Dry skin SR Musculoskeletal issues: Back or neck pain SR Hematologic issues: Bleeding/bruising - ROS All Systems: reviewed and no additional remarkable complaints except as stated Home Medications and Allergies Home Medications Medication Instructions Recorded Confirmed Type thyroid (pork) 65 mg tablet 65 mg PO DAILY 06/22/20 10/11/22 History (Nature-Throid) acetaminophen 325 mg capsule PRN Back Pain 01/11/21 10/11/22 History (Tylenol) Ernie: D-5,000 1 tab PO DAILY 05/19/21 10/11/22 History Ernie: Glustathione-SR 1 tab PO DAILY 05/19/21 10/11/22 History Ernie: Men's Multi 2 tab PO DAILY 05/19/21 10/11/22 History Ernie: Milk Thistle Phytosome 1 tab PO DAILY 05/19/21 10/11/22 History warfarin 5 mg tablet See Rx Instructions .Route 09/16/22 10/11/22 Rx .COMPLEX #90 tabs trazodone 50 mg tablet 50 - 100 mg PO BEDTIME PRN 10/11/22 10/11/22 Rx insomnia #90 tabs Allergies Allergy/AdvReac Type Severity Reaction Status Date / Time No Known Drug Allergies Allergy Verified 10/11/22 07:43 Exam Vital signs: Vital Signs Temp Pulse Resp BP Pulse Ox 12/19/22 10:57 96.7 F L 72 16 145/70 H 100 Intake and Output 12/18/22 12/19/22 12/19/22 23:59 07:59 15:59 Other: Weight 72.6 kg Patient Weight 12/19/22 23:59 Weight 72.6 kg Narrative: ECOG 1 WDWN, NAD, pleasant and cooperative. Results - Labs Laboratory Last Values WBC 6.3 X10^3/uL (4.5-11.0) 11/10/22 12:31 RBC 4.00 X10^6/uL (4.5-5.9) L 11/10/22 12:31 Hgb 12.3 g/dL (13.5-17.5) L 11/10/22 12:31 Hct 37.2 % (41-53) L 11/10/22 12:31 MCV 93.0 fL (80-100) 11/10/22 12:31 MCH 30.8 PG (26-34) 11/10/22 12:31 MCHC 33.1 % (30-36) 11/10/22 12:31 RDW 14.7 % (11.6-14.8) 11/10/22 12:31 Plt Count 221 X10^3/uL (150-400) 11/10/22 12:31 Neut % (Auto) 68.9 % (50-75) 11/10/22 12:31 Lymph % (Auto) 15.7 % (25-40) L 11/10/22 12:31 [place] % (Auto) 10.8 % (3-14) 11/10/22 12:31 Eos % (Auto) 4.0 % (2-4) 11/10/22 12:31 Baso % (Auto) 0.6 % (0-2) 11/10/22 12:31 Neut # (Auto) 4300 /uL (2302-4401) 11/10/22 12:31 Lymph # (Auto) 1000 /uL (7049-4442) L 11/10/22 12:31 [place] # (Auto) 700 /uL (0-900) 11/10/22 12:31 Eos # (Auto) 200 /uL (0-450) 11/10/22 12:31 Baso # (Auto) 0 /uL (0-100) 11/10/22 12:31 PT 56.3 SECONDS (10.1-12.7) H 06/09/20 08:20 INR 5.0 (0.9-1.3) H* 06/09/20 08:20 Sodium 137 mmol/L (137-145) 06/09/20 08:20 Potassium 4.8 mmol/L (3.4-5.1) 06/09/20 08:20 Chloride 104 mmol/L (98-107) 06/09/20 08:20 Carbon Dioxide 30 mmol/L (22-32) 06/09/20 08:20 BUN 18 mg/dL (9-20) 06/09/20 08:20 Creatinine 0.72 mg/dL (0.66-1.25) 06/09/20 08:20 Estimated GFR > 60.0 mL/min (>60) 06/09/20 08:20 BUN/Creatinine Ratio 25.0 (6-22) H 06/09/20 08:20 Glucose 93 mg/dL (80-110) 06/09/20 08:20 Calcium 9.4 mg/dL (8.4-10.2) 06/09/20 08:20 Total Bilirubin 0.6 mg/dL (0.2-1.3) 06/09/20 08:20 AST 32 IU/L (17-59) 06/09/20 08:20 ALT 12 IU/L (<50) 06/09/20 08:20 Alkaline Phosphatase 60 U/L (38-126) 06/09/20 08:20 Lactate Dehydrogenase 229 U/L (120-246) 10/17/22 15:58 Total Protein 6.1 g/dL (6.0-8.5) 06/09/20 08:20 Total Protein 6.8 g/dL (6.3-8.2) 06/09/20 08:20 Albumin 3.9 g/dL (2.9-4.4) 06/09/20 08:20 Albumin 4.4 g/dL (3.5-5.0) 06/09/20 08:20 Globulin 2.4 g/dL (1.7-4.1) 06/09/20 08:20 Albumin/Globulin Ratio 1.8 (1.0-2.8) 06/09/20 08:20 Albumin/Globulin Ratio 1.8 (0.7-1.7) H 06/09/20 08:20 Total Protein (PEP) 6.7 g/dL (6.0-8.5) 10/17/22 15:58 Tmas-0-Wgozxvodexham 1.4 mg/L (0.6-2.4) 06/09/20 08:20 Albumin (PEP) 4.3 g/dL (2.9-4.4) 10/17/22 15:58 Albumin/Globulin (PEP) 1.8 (0.7-1.7) H 10/17/22 15:58 Tusnj-8-Oxuwsbrrr 0.2 g/dL (0.0-0.4) 10/17/22 15:58 Hvsdm-4-Hxcsgzxam 0.6 g/dL (0.4-1.0) 10/17/22 15:58 Beta Globulins 0.9 g/dL (0.7-1.3) 10/17/22 15:58 Gamma Globulins 0.6 g/dL (0.4-1.8) 10/17/22 15:58 Gamma Glob/Tot Protein 2.4 g/dL (2.2-3.9) 10/17/22 15:58 M-Shailesh Comment: g/dL (Not Observed) 10/17/22 15:58 U Free [place] Light Ch 113.31 mg/L (0.63-113.79) 06/09/20 08:20 U Free Lambda Light Ch 3.73 mg/L (0.47-11.77) 06/09/20 08:20 Tot [place]/Lambda Ratio 30.38 (1.03-31.76) 06/09/20 08:20 IgG, Serum (MS) 578 mg/dL (603-1613) L 05/07/20 09:11 Serum IgA 196 mg/dL (61-437) 10/17/22 15:58 Serum IgG 588 mg/dL (603-1613) L 10/17/22 15:58 Serum IgM 39 mg/dL (20-172) 10/17/22 15:58 IgA 224 mg/dL (61-437) 05/07/20 09:11 IgM 32 mg/dL (20-172) 05/07/20 09:11 KIRSTY Interpretation Comment: (.) 10/17/22 15:58 Free Lambda LC, Quant Cancelled 05/07/20 09:11 Fr [place]& Lambda LC Qnt Cancelled 05/07/20 09:11 Fr Lambda/[place] Ratio 56.42 05/07/20 09:11 Free [place] Light Chains 694.4 mg/L (3.3-19.4) H 10/17/22 15:58 Free Lambda Light Chain 9.5 mg/L (5.7-26.3) 10/17/22 15:58 Free [place]/Lambda Ratio 73.09 (0.26-1.65) H 10/17/22 15:58 Ref Lab Notation Comment (.) 10/17/22 15:58 Assessment and Plan (1) Monoclonal gammopathy of undetermined significance Kush is a 62 year old presented initially with anemia and hypogammaglobuminemia. BMA/Bx on 11/23/2015 showed 5-8% plasma cells with mildly elevated kappa:lambda ratio of 6:1 supporting the diagnosis of MGUS. but SPEP showed no monoclonal protein. He has been on active surveillance since. Due to rising free light chain ratio, we obtained bone marrow aspiration and biopsy on 11/10/2022. The final pathology showed plasma cell neoplasm involving bone marrow comprising 10-15% of marrow cellularity. Concurrent flow cytometry demonstrated an abnormal plasma cell population, kappa light chain restricted with CD56 expression. Cytogenetic analysis showed normal male karyotype 46, XY[20]. MM FISH were positive for extra 1q signals, three IgH signals, and three 9q signals. Results for 13q and TP53 were normal. Today, I reviewed the bone marrow aspiration biopsy findings with the patient. I talked with him that the bone marrow showed 10-15% abnormal plasma cells. However, patient does not meet other diagnostic criteria yet for MM, that is, anemia < 10 mg/dL, hypercalcemia or kidney damage. In addition the serum involved/uninvolved free light chain ratio is < 100 and. At this moment, it does not meet the diagnosis of multiple myeloma. I will obtain a bone marrow skeletal MR to evaluate for possible bone changes. Based on the MR findings, I will talk with the patient that if his disease status meet the diagnostic criteria of multiple myeloma. Summers: Bone marrow MR survey RTC in 4 weeks, repeat SPEP, IFIX, SFLC, B2M
--- NOTE | 2022-12-20 14:31 | ONC.SCHED ---
MRI bone marrow: Auth submitted for this scan with [employer].
[2023-01-16 10:56] VITALS: BP 137/81; PULSE 69; RESP 18; TEMP 36.2; O2SAT 99
--- NOTE | 2023-01-16 11:15 | P.PNONC_ITS ---
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 The final pathology showed plasma cell neoplasm involving bone marrow comprising 10-15% of marrow cellularity. Concurrent flow cytometry demonstrated an abnormal plasma cell population, kappa light chain restricted with CD56 expression. Cytogenetic analysis showed normal male karyotype 46, XY[20]. MM FISH were positive for extra 1q signals, three IgH signals, and three 9q signals. Results for 13q and TP53 were normal. Pain patient underwent bone marrow MR survey on 12/23/2022 that showed no suspicious bone marrow lesions. It showed abnormal left lung with volume loss and apparent fibrotic change. Moderate dextroconvex thoracic scoliosis noted. Otherwise [place] did changes noted in lower cervical spine and lower lumbar spine. Patient presents here today for scheduled follow-up visit. No new signs or symptoms Hematology: 1. Longstanding history of borderline/normochromic/normocytic anemia. Observation only. 2. 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 3. Known history of hereditary thrombophilia. 4. Prior deep venous thrombosis (DVT) in his right lower extremity years ago. On maintenance Coumadin. 5. Concurrent factor V Leiden mutation. 6. Prior gastric outlet obstruction surgery, 12+ years ago, resulting in removal of a small segment of his proximal small bowel. - Patient Self-Reported Symptoms SR Constitution: Fatigue/Malaise SR respiratory issues: Shortness of breath SR Skin issues: Dry skin SR Musculoskeletal issues: Joint pain or swelling, Back or neck pain SR Hematologic issues: Bleeding/bruising Home Medications and Allergies Home Medications Medication Instructions Recorded Confirmed Type thyroid (pork) 65 mg tablet 65 mg PO DAILY 06/22/20 01/16/23 History (Nature-Throid) acetaminophen 325 mg capsule 650 mg PRN PRN Back Pain 01/11/21 01/16/23 History (Tylenol) Ernie: D-5,000 1 tab PO DAILY 05/19/21 01/16/23 History Ernie: Glustathione-SR 1 tab PO DAILY 05/19/21 01/16/23 History Ernie: Men's Multi 2 tab PO DAILY 05/19/21 01/16/23 History Ernie: Milk Thistle Phytosome 1 tab PO DAILY 05/19/21 01/16/23 History trazodone 50 mg tablet 50 - 100 mg PO BEDTIME PRN 10/11/22 01/16/23 Rx insomnia #90 tabs warfarin 5 mg tablet See Rx Instructions .Route 12/25/22 01/16/23 Rx .COMPLEX #90 tabs Allergies Allergy/AdvReac Type Severity Reaction Status Date / Time No Known Drug Allergies Allergy Verified 10/11/22 07:43 Exam Vital signs: Vital Signs Temp Pulse Resp BP Pulse Ox 01/16/23 10:56 97.2 F L 69 18 137/81 99 Intake and Output 01/15/23 01/16/23 01/16/23 23:59 07:59 15:59 Other: Weight 71 kg Patient Weight 01/16/23 23:59 Weight 71 kg Narrative: ECOG 1 WDWN, NAD, pleasant and cooperative. Results - Labs Laboratory Last Values WBC 6.3 X10^3/uL (4.5-11.0) 11/10/22 12:31 RBC 4.00 X10^6/uL (4.5-5.9) L 11/10/22 12:31 Hgb 12.3 g/dL (13.5-17.5) L 11/10/22 12:31 Hct 37.2 % (41-53) L 11/10/22 12:31 MCV 93.0 fL (80-100) 11/10/22 12:31 MCH 30.8 PG (26-34) 11/10/22 12:31 MCHC 33.1 % (30-36) 11/10/22 12:31 RDW 14.7 % (11.6-14.8) 11/10/22 12:31 Plt Count 221 X10^3/uL (150-400) 11/10/22 12:31 Neut % (Auto) 68.9 % (50-75) 11/10/22 12:31 Lymph % (Auto) 15.7 % (25-40) L 11/10/22 12:31 [place] % (Auto) 10.8 % (3-14) 11/10/22 12:31 Eos % (Auto) 4.0 % (2-4) 11/10/22 12:31 Baso % (Auto) 0.6 % (0-2) 11/10/22 12:31 Neut # (Auto) 4300 /uL (6692-9517) 11/10/22 12:31 Lymph # (Auto) 1000 /uL (1189-3093) L 11/10/22 12:31 [place] # (Auto) 700 /uL (0-900) 11/10/22 12:31 Eos # (Auto) 200 /uL (0-450) 11/10/22 12:31 Baso # (Auto) 0 /uL (0-100) 11/10/22 12:31 PT 56.3 SECONDS (10.1-12.7) H 06/09/20 08:20 INR 5.0 (0.9-1.3) H* 06/09/20 08:20 Sodium 137 mmol/L (137-145) 06/09/20 08:20 Potassium 4.8 mmol/L (3.4-5.1) 06/09/20 08:20 Chloride 104 mmol/L (98-107) 06/09/20 08:20 Carbon Dioxide 30 mmol/L (22-32) 06/09/20 08:20 BUN 18 mg/dL (9-20) 06/09/20 08:20 Creatinine 0.72 mg/dL (0.66-1.25) 06/09/20 08:20 Estimated GFR > 60.0 mL/min (>60) 06/09/20 08:20 BUN/Creatinine Ratio 25.0 (6-22) H 06/09/20 08:20 Glucose 93 mg/dL (80-110) 06/09/20 08:20 Calcium 9.4 mg/dL (8.4-10.2) 06/09/20 08:20 Total Bilirubin 0.6 mg/dL (0.2-1.3) 06/09/20 08:20 AST 32 IU/L (17-59) 06/09/20 08:20 ALT 12 IU/L (<50) 06/09/20 08:20 Alkaline Phosphatase 60 U/L (38-126) 06/09/20 08:20 Lactate Dehydrogenase 229 U/L (120-246) 10/17/22 15:58 Total Protein 6.1 g/dL (6.0-8.5) 06/09/20 08:20 Total Protein 6.8 g/dL (6.3-8.2) 06/09/20 08:20 Albumin 3.9 g/dL (2.9-4.4) 06/09/20 08:20 Albumin 4.4 g/dL (3.5-5.0) 06/09/20 08:20 Globulin 2.4 g/dL (1.7-4.1) 06/09/20 08:20 Albumin/Globulin Ratio 1.8 (1.0-2.8) 06/09/20 08:20 Albumin/Globulin Ratio 1.8 (0.7-1.7) H 06/09/20 08:20 Total Protein (PEP) 6.7 g/dL (6.0-8.5) 10/17/22 15:58 Ttpm-5-Vrbaijhuteark 1.4 mg/L (0.6-2.4) 06/09/20 08:20 Albumin (PEP) 4.3 g/dL (2.9-4.4) 10/17/22 15:58 Albumin/Globulin (PEP) 1.8 (0.7-1.7) H 10/17/22 15:58 Jdjvr-2-Lrkxdaraj 0.2 g/dL (0.0-0.4) 10/17/22 15:58 Gblwy-2-Jqxuzgnfk 0.6 g/dL (0.4-1.0) 10/17/22 15:58 Beta Globulins 0.9 g/dL (0.7-1.3) 10/17/22 15:58 Gamma Globulins 0.6 g/dL (0.4-1.8) 10/17/22 15:58 Gamma Glob/Tot Protein 2.4 g/dL (2.2-3.9) 10/17/22 15:58 M-Shailesh Comment: g/dL (Not Observed) 10/17/22 15:58 U Free [place] Light Ch 113.31 mg/L (0.63-113.79) 06/09/20 08:20 U Free Lambda Light Ch 3.73 mg/L (0.47-11.77) 06/09/20 08:20 Tot [place]/Lambda Ratio 30.38 (1.03-31.76) 06/09/20 08:20 IgG, Serum (MS) 578 mg/dL (603-1613) L 05/07/20 09:11 Serum IgA 196 mg/dL (61-437) 10/17/22 15:58 Serum IgG 588 mg/dL (603-1613) L 10/17/22 15:58 Serum IgM 39 mg/dL (20-172) 10/17/22 15:58 IgA 224 mg/dL (61-437) 05/07/20 09:11 IgM 32 mg/dL (20-172) 05/07/20 09:11 KIRSTY Interpretation Comment: (.) 10/17/22 15:58 Free Lambda LC, Quant Cancelled 05/07/20 09:11 Fr [place]& Lambda LC Qnt Cancelled 05/07/20 09:11 Fr Lambda/[place] Ratio 56.42 05/07/20 09:11 Free [place] Light Chains 694.4 mg/L (3.3-19.4) H 10/17/22 15:58 Free Lambda Light Chain 9.5 mg/L (5.7-26.3) 10/17/22 15:58 Free [place]/Lambda Ratio 73.09 (0.26-1.65) H 10/17/22 15:58 Ref Lab Notation Comment (.) 10/17/22 15:58 Assessment and Plan (1) Smoldering multiple myeloma (SMM) Kush is a 62 year old presented initially with anemia and hypoga mmaglobuminemia. BMA/Bx on 11/23/2015 showed 5-8% plasma cells with mildly elevated kappa:lambda ratio of 6:1 supporting the diagnosis of MGUS. but SPEP showed no monoclonal protein. He has been on active surveillance since. Due to rising free light chain ratio, we obtained bone marrow aspiration and biopsy on 11/10/2022. The final pathology showed plasma cell neoplasm involving bone marrow comprising 10-15% of marrow cellularity. Concurrent flow cytometry demonstrated an abnormal plasma cell population, kappa light chain restricted with CD56 expression. Cytogenetic analysis showed normal male karyotype 46, XY[20]. MM FISH were positive for extra 1q signals, three IgH signals, and three 9q signals. Results for 13q and TP53 were normal. Today I reviewed the bone marrow MR survey with the patient. No bone marrow lesions were identified. Therefore I talked with the patient that his disease should be classified as smoldering multiple myeloma. Patient does not meet the high risk or intermediate risk category based on bone marrow plasma cells less than 20%, monoclonal protein not detected, and involved/on involved free light chain ratio less than 20. It is classified as low risk SMM. Based on guidelines, active surveillance is recommended. Summers: RTC in Jan 2023 to review the results of SPEP, IFIX, SFLC, B2M
--- NOTE | 2023-06-14 11:33 | ONC.SCHED ---
Labs: Patient called to verify appointment time with Dr. Robbins in June. He has no current fup scheduled with Dr. Robbins. I informed patient that Dr. Robbins and NPO were leaving [facility], that we are partnering with [facility] and that we don't know when we will have providers back in office. Patient stated he would get his labs, and wait until a nurse called with review of the results. He did not indicate he wanted to transfer care at this time. Peripheral draw appointment was created for late June as reminder to check on labs for review and follow-up with patient.
--- NOTE | 2023-07-05 10:15 | PC.NURSE ---
Pt here at the clinic to review lab results. Results printed and given to pt. Pt will f/u with Dr. Gu [facility] SMM.
== END ==
PROVIDERS: PCP Family Medicine; Referring Provider Family Medicine; Visit Provider Internal Medicine Hematology & Oncology
DX: D47.2 Monoclonal gammopathy (principal); I82.409 Acute embolism and thrombosis of unspecified deep veins of unspecified lower extremity
CPT/HCPCS: 36415; 38222; 80053; 82232; 82784; 83615; 83883; 84155; 84165; 85025; 85610; 86334; 99000; 99213; 99214

== ENCOUNTER → 2023-08-09 11:59 | Outpatient (CLI) | payer OTHER, MEDICAID, SELFPAY ==
--- NOTE | 2023-08-09 12:00 | DI.CT.S_ITS ---
PROCEDURE: CT CHEST WO CON INDICATIONS: f/u on opacity on CXR TECHNIQUE: Noncontrast 5 mm thick sections acquired from the pulmonary apices to the posterior costophrenic angles. 1 mm lung window, 5 mm thick coronal and sagittal and 7 mm axial MIP reformats were then acquired. For radiation dose reduction, the following was used: automated exposure control, adjustment of mA and/or kV according to patient size. COMPARISON: [facility], CT, CT CHEST W CON, 04/27/2023, 8:40. [facility], CR, XR CHEST 2V, 04/07/2023, 10:04. FINDINGS: Image quality: Excellent. Lungs and pleura: Similar restrictive lung disease in the left lung, with associated volume loss, smooth interstitial thickening, bronchial thickening and pleural calcification. Similar nodularity of the right upper lobe, with associated pleural tethering (series 3, image 87). Similar reticulation of the anterior right middle lobe. Stable vision of the left hemidiaphragm. Mediastinum: Heart size is normal. Trace pericardial effusion. No mediastinal adenopathy by size criteria. Stable enlarged pulmonary artery. Esophagus is normal in caliber. No hiatal hernia. Hemiazygous continuation of the IVC. Bones and chest wall: No suspicious bony lesions. No vertebral body compression fractures. No axillary or supraclavicular adenopathy by size criteria. Thyroid gland is unremarkable . Abdomen: Visualized upper abdominal solid organs and bowel loops appear normal in the absence of contrast. IMPRESSION: Stable nodularity with pleural tethering in the right upper lobe, favoring a scar. Similar restrictive left-sided lung disease. Unchanged reticulation and ground-glass in the right middle lobe, also probably representing a scarring process. Additional chronic findings as above. Dictated by: Edison Delacruz M.D. on 08/09/2023 at 12:29 Approved by: Edison Delacruz M.D. on 08/09/2023 at 12:37
== END ==
PROVIDERS: PCP Family Medicine; Referring Provider Family Medicine; Visit Provider Family Medicine
DX: D47.2 Monoclonal gammopathy (principal); R93.89 Abnormal findings on diagnostic imaging of other specified body structures; J98.4 Other disorders of lung
CPT/HCPCS: 71250

== ENCOUNTER 2023-08-19 10:12 | Emergency (ER) | payer OTHER, MEDICAID, SELFPAY ==
[2023-08-19 10:18] VITALS: PULSE 81; O2SAT 99
[2023-08-19 10:27] VITALS: BP 150/90; PULSE 83; RESP 18; TEMP 36.6; O2SAT 99; BMI 25.7
--- NOTE | 2023-08-19 10:31 | DI.RAD.S_ITS ---
PROCEDURE: XR KNEE RT 3V INDICATIONS: KNEE PAIN/SWELLING TECHNIQUE: 3 views of the knee were acquired. COMPARISON: None. FINDINGS: Bones: No fractures or dislocations. No suspicious bony lesions. Mild tibiofemoral joint space narrowing consistent with osteoarthritic changes. Soft tissues: No joint effusion. No suspicious soft tissue calcifications. Soft tissue swelling anterior to the patella. IMPRESSION: No acute osseous abnormalities. Soft tissue swelling anterior to the patella, may represent bursitis. Dictated by: Dale Robbins M.D. on 08/19/2023 at 11:24 Approved by: Dale Robbins M.D. on 08/19/2023 at 11:25
[2023-08-19 10:54] LABS: INR 2.4 (0.9-1.3); Prothrombin Time 27.9 SECONDS (10.1-12.7)
[2023-08-19 11:06] VITALS: PULSE 80
--- NOTE | 2023-08-19 11:16 | ED.LOWEXIN ---
HPI - Extremity Injury (Lower) General Chief Complaint: Extremity Injury, Lower Stated Complaint: poss broken knee Time Seen by Provider: 08/19/23 10:17 Source: patient Mode of arrival: Ambulatory History of Present Illness HPI Narrative: 62-year-old male with history of smoldering multiple myeloma, factor 5 Leiden on warfarin presents by private vehicle for possible broken kneecap. Patient states that he struck his R knee against a dinghy several days ago, and then yesterday while moving a stove he felt a pop in his R knee with subsequent swelling. He states that he felt like there was abnormal movement over his kneecap and wanted to make sure he did not have a broken kneecap Related Data Home Medications Medication Instructions Recorded Confirmed thyroid (pork) 65 mg tablet 65 mg PO DAILY 06/22/20 04/21/23 (Nature-Throid) acetaminophen 325 mg capsule 650 mg PRN PRN Back Pain 01/11/21 04/21/23 (Tylenol) Ernie: D-5,000 1 tab PO DAILY 05/19/21 04/21/23 Ernie: Glustathione-SR 1 tab PO DAILY 05/19/21 04/21/23 Ernie: Men's Multi 2 tab PO DAILY 05/19/21 04/21/23 Ernie: Milk Thistle Phytosome 1 tab PO DAILY 05/19/21 04/21/23 Previous Rx's Medication Instructions Recorded trazodone 50 mg tablet 50 - 100 mg PO BEDTIME PRN 10/11/22 insomnia #90 tabs warfarin 5 mg tablet See Rx Instructions .Route 12/25/22 .COMPLEX #90 tabs Allergies Allergy/AdvReac Type Severity Reaction Status Date / Time No Known Drug Allergies Allergy Verified 04/21/23 09:55 Review of Systems Review of Systems Narrative: CONSTITUTIONAL- Denies: fever, chills, fatigue HEENT- Denies: sore throat, nosebleed, vision changes RESPIRATORY- Denies: shortness of breath, cough, wheezing CARDIAC- Denies: chest pain, edema, orthopnea GI- Denies: abdominal pain, nausea, vomiting, constipation, diarrhea - Denies: frequency, dysuria, hematuria, flank pain MSK- Reports: R knee pain, R knee swelling Denies: extremity pain, extremity swelling SKIN- Denies: rash, itching, burn, swelling NEUROLOGICAL- Denies: headache, numbness, weakness, dizziness PSYCHIATRIC- Denies: anxiety, depression, suicidal ideation, homicidal ideation Patient History Medical History (Updated 08/19/23 @ 11:38 by Allyson Rodríguez MD) Anemia (~2007) Chronic back pain (~1979) DVT (deep venous thrombosis) (~2006) Factor V Leiden mutation (~2007) Hemorrhoids History of COVID-19 Insomnia Low back pain Low testosterone (~2007) Malabsorption Nodule of right lung Restrictive lung disease Seasonal allergies Surgical History Anesthesia Gynecomastia (~1997) Status post bypass gastrojejunostomy (~11/04/05) Status post hemorrhoidectomy (~2012) Status post laminectomy (~1997) Status post thoracotomy (~1963) Family History Father Age: 86 Tobacco abuse Alcohol abuse Prostate cancer Mother Age: 85 Parkinsons Blepharospasm Osteoarthritis Arias's palsy Leukemia Macular degeneration Grandfather Stroke Sister Age: 63 Stroke Crohn disease Family/Other No problems noted. Social History Smoking Status: Never smoker Smoking Status: Never smoker alcohol intake frequency: 0-2 drinks per day Substance Use Type: does not use Exam Initial Vital Signs Initial Vital Signs: Vital Signs Pulse Rate 81 08/19/23 10:18 Pulse Oximetry 99 08/19/23 10:18 Const: Awake, alert, no acute distress, nontoxic appearing Eyes: PERRL, EOMI, conjunctiva normal ENT: Atraumatic, dentition normal, mucous membranes moist Cardiac: regular rate, regular rhythm RESP: unlabored, clear bilaterally, no wheezing GI: Atraumatic, soft, nontender, nondistended, no rebound, no guarding MSK: minimal swelling R knee, full ROM, no tenderness to palpation Skin: Warm, Dry, intact, no rashes Neuro: AO x3, CN II-XII grossly intact, moves all extremities, gait normal Psych: affect normal, mood normal, not suicidal, not homicidal Course Course Course Narrative: This is a well-appearing patient with knee pain after initially striking an object and then moving a heavy object several days later. He is ambulatory in the emergency department with an antalgic gait. X-rays are negative for acute findings. No evidence of tendon compromise or dislocation. Patient states it has been longer than a month since his last INR check, so INR was checked today, it is at therapeutic range for patient. Patient placed in jarrett wrap bandage and counseled on RICE supportive therapies at home. Orders Ordered: ED Orders 08/19/23 10:31 XR knee RT 3V Stat Prothrombin Time INR Stat Vital Signs Vital signs: Vital Signs - 8 hr 08/19/23 10:27 08/19/23 10:18 08/19/23 11:06 Temperature 97.9 F Pulse Rate 83 81 Pulse Rate [Right Posterior Tibial] 80 Respiratory Rate 18 Blood Pressure 150/90 H Pulse Oximetry 99 99 Oxygen Delivery Method Room Air MDM - Extremity Injury (Lower) Lab Data Labs: Lab Results 08/19/23 Range/Units 10:41 PT 27.9 H (10.1-12.7) SECONDS INR 2.4 H (0.9-1.3) Discharge Plan Departure Patient Disposition: Home Clinical Impression: Knee swelling Instructions: DI for Knee Sprain, How to Apply an Jarrett Wrap Prescriptions: No Action warfarin 5 mg tablet See Rx Instructions .ROUTE .COMPLEX Qty: 90 3RF Dose Instruction: take 1 AND 1/2 tablets by mouth ON WEDNESDAYS AND SATURDAYS then take 1 tablet by mouth ALL OTHER DAYS as directed BY YOUR DOCTOR Rx Instructions: take 1 AND 1/2 tablets by mouth ON WEDNESDAYS AND SATURDAYS then take 1 tablet by mouth ALL OTHER DAYS as directed BY YOUR DOCTOR trazodone 50 mg tablet 50 - 100 mg PO BEDTIME PRN (Reason: insomnia) Qty: 90 11RF Ernie: Glustathione-SR 1 tab PO DAILY Ernie: D-5,000 1 tab PO DAILY Ernie: Milk Thistle Phytosome 1 tab PO DAILY Ernie: Men's Multi 2 tab PO DAILY Nature-Throid 65 mg Tablet 65 mg PO DAILY acetaminophen [Tylenol] 325 mg Capsule 650 mg PRN PRN (Reason: Back Pain) Referrals: Vesta Gu DO [Primary Care Provider] - Stand Alone Forms: Patient Portal/API
[2023-08-19 11:46] VITALS: PULSE 78; RESP 18; O2SAT 99
== END 2023-08-19 11:48 | disposition home or self-care (01) ==
PROVIDERS: Emergency Provider Emergency Medicine; PCP Family Medicine
DX: M25.461 Effusion, right knee (principal)
CPT/HCPCS: 73562; 85610; 99281; 99282

== ENCOUNTER → 2023-10-18 09:40 | Outpatient (CLI) | payer MEDICARE, MEDICAID, SELFPAY ==
[2023-10-18 11:02] LABS: INR 2.9 (0.9-1.3); Prothrombin Time 33.7 SECONDS (9.4-12.5)
== END ==
PROVIDERS: PCP Family Medicine; Referring Provider Family Medicine; Visit Provider Family Medicine
DX: Z79.01 Long term (current) use of anticoagulants (principal)
CPT/HCPCS: 36415; 85610

== ENCOUNTER → 2023-12-02 08:30 | Outpatient (CLI) | payer MEDICARE, OTHER, SELFPAY ==
[2023-12-02 09:29] LABS: Add Manual Diff / Slide Review NO; Basophils Absolute Auto 100 /uL (0-100); Basophils Percent Auto 1.3 % (0-2); Eosinophils Absolute Auto 300 /uL (0-450); Eosinophils Percent Auto 7.9 % (2-4); Hematocrit 37.7 % (41-53); Hemoglobin 12.5 g/dL (13.5-17.5); INR 2.8 (0.9-1.3); Lymphocytes Absolute Auto 1100 /uL (1100-4500); Lymphocytes Percent Auto 28.4 % (25-40); Mean Corpuscular HGB Conc 33.2 % (30-36); Mean Corpuscular Hemoglobin 31.4 PG (26-34); Mean Corpuscular Volume 94.7 fL (80-100); Monocytes Absolute Auto 600 /uL (0-900); Monocytes Percent Auto 14.8 % (3-14); Neutrophils Absolute Auto 1900 /uL (1500-7000); Neutrophils Percent Auto 47.6 % (50-75); Platelet Count 210 X10^3/uL (150-400); Red Blood Cell Count 3.98 X10^6/uL (4.5-5.9); Red Cell Distribution Width 14.5 % (11.6-14.8)
[2023-12-02 09:36] LABS: Alanine Aminotransferase 16 IU/L (<50); Albumin 4.5 g/dL (3.5-5.0); Albumin Globulin Ratio 1.9 (1.0-2.8); Alkaline Phosphatase 52 U/L (38-126); Aspartate Aminotransferase 32 IU/L (17-59); BUN Creatinine Ratio 36.4 (6-22); Bilirubin Total 0.8 mg/dL (0.2-1.3); Blood Urea Nitrogen 28 mg/dL (9-20); Calcium 9.7 mg/dL (8.4-10.2); Carbon Dioxide 29 mmol/L (22-32); Chloride 105 mmol/L (98-107); Cholesterol 156 mg/dL (140-199); Estimated Glomerular Filt Rate > 60 mL/min (>60); Globulin 2.4 g/dL (1.7-4.1); Glucose 103 mg/dL (80-110); HDL Cholesterol 65 mg/dL (40-60); HEMOLYSIS < 15 (0-50); LDL Cholesterol Calculated 82 mg/dL (<100); Potassium 5.3 mmol/L (3.4-5.1); Sodium 142 mmol/L (137-145); Total Protein 6.9 g/dL (6.3-8.2); Triglycerides 44 mg/dL (35-150)
[2023-12-02 10:32] LABS: TSH w/ Reflex to FT4 1.68 uIU/mL (0.47-4.68)
== END ==
LOC: LAB 08:32
PROVIDERS: PCP Family Medicine; Referring Provider Family Medicine; Visit Provider Family Medicine
DX: I82.409 Acute embolism and thrombosis of unspecified deep veins of unspecified lower extremity; D47.2 Monoclonal gammopathy
CPT/HCPCS: 36415; 80053; 80061; 84443; 85025; 85610

== ENCOUNTER → 2024-01-08 13:59 | Outpatient (CLI) | payer MEDICARE, OTHER, SELFPAY ==
--- NOTE | 2024-01-08 22:17 | DI.NM.S_ITS ---
DATE OF SERVICE: 01/08/2024 PROCEDURE: Exercise stress test. INDICATIONS: Chest pain. CARDIAC STRESS: The patient underwent exercise stress test under the supervision of an attending staff. The patient walked on Angel protocol for 9 minutes and achieved 10.1 METS of workload and SHAMIKA -14%. Resting blood pressure 130/76 and peak blood pressure 198/92 mmHg. Maximum heart rate 146. The patient achieved 94% of target heart rate. Baseline rhythm sinus. During stress, no convincing ischemic changes seen. During stress, no significant arrhythmias. However, in recovery, patient had frequent isolated PVCs as well as some PACs without any ventricular tachycardia or AFib. CONCLUSION: Exercise stress test is negative for inducible ischemia. Good exercise tolerance. Mildly hypertensive blood pressure response. Intermittent premature ventricular contractions and some premature atrial contractions during recovery without any ventricular tachycardia or atrial fibrillation. No anginal symptoms. Overall, low-risk exercise stress test. Kush Wilson - MARLON/samir/PATO doc#: [id number]/job#: [id number] dd: 01/08/2024 17:05:00 dt: 01/08/2024 22:09:00 DICTATING /COPIES TO: Owen Tan MD COPIES MNE: MARCO ANTONIO;
== END ==
PROVIDERS: PCP Family Medicine; Referring Provider Family Medicine; Visit Provider Family Medicine
DX: R07.9 Chest pain, unspecified (principal)
CPT/HCPCS: 93017

== ENCOUNTER → 2024-01-11 06:59 | Outpatient (CLI) | payer MEDICARE, OTHER, SELFPAY ==
--- NOTE | 2024-01-11 07:01 | DI.ECHO.S_ITS ---
[facility] +---------+ [facility] +---------+ : : [address] : [place] : : : : [id number] : : : : Phone: [phone]+ Echocardiogram Report + + :Name: STORMY CUTLER Study Date: 01/11/2024 Height: 71 in : :[facility] ReadingLocation: Weight: 157 lb : : Gender: Male BSA: 1.9 m2 : :: 1960 Age: 63 yrs BP: 169/104 mmHg: :Reason For Study: MONOCLONAL GAMMOPATHY : :Ordering Physician: KRISTY, : :DESTINEY Performed By: Samantha Govea : :Referring: DESTINEY WAGNER : + + Interpretation Summary The ejection fraction is estimated to be 50-55%. Left ventricular global longitudinal strain average is -16.7%. Diastolic function could not be accurately assessed due to contradictory data. The right ventricle is normal in size and function. There is mild mitral regurgitation. Pulmonary artery pressures cannot be estimated because of the lack of a measurable TR jet velocity but the IVC suggests a CVP of around 3 mmHg. There is a trivial pericardial effusion noted. Procedure: A two-dimensional transthoracic echocardiogram with color flow and Doppler was performed. The study quality was technically adequate. The patient had an echocardiogram, but there is no comparison study available. The patient was in sinus rhythm with heart rates between 70-75 bpm during the exam. Left Ventricle: The left ventricle is normal in size and wall thickness. The ejection fraction is estimated to be 50-55%. Left ventricular global longitudinal strain average is -16.7%. Diastolic function could not be accurately assessed due to contradictory data. Right Ventricle: The right ventricle is normal in size and function. Atria: The left atrial size is normal. Right atrial size is normal. There is no Doppler evidence for an interatrial shunt. Mitral Valve: The mitral valve leaflets appear borderline thickened, but open well. There is mild mitral regurgitation. Aortic Valve: The aortic valve is trileaflet. The aortic valve opens well. There is no aortic valve stenosis. No aortic regurgitation is present. Tricuspid Valve: The tricuspid valve is normal in structure and function. There is trace tricuspid regurgitation. Pulmonary artery pressures cannot be estimated because of the lack of a measurable TR jet velocity but the IVC suggests a CVP of around 3 mmHg. Pulmonic Valve: The pulmonic valve leaflets are thin and pliable; valve motion is normal. There is a trace or physiologic amount of pulmonic regurgitation. Great Vessels: The aortic root is normal size. The dimensions of the ascending aorta are normal. The IVC is of normal diameter and collapses greater than 50% with a sniff. This suggests a low right atrial pressure of 3 mm Hg. Pericardium/ Pleura There is a trivial pericardial effusion noted. There is no pleural effusion. MMode/2D Measurements & Calculations LVIDd: 4.6 cm LVOT diam: 2.0 cm LVIDs: 3.2 cm Ao root diam: 3.1 cm FS: 30.7 % asc Aorta Diam: 3.4 cm IVSd: 0.80 cm Ao Arch Diam (Prox Trans): 3.6 cm LVPWd: 0.86 cm LV roberts. diameter/BSA (cm/m^2): 2.4 LV sys. diameter/BSA (cm/m^2): 1.7 LA A2 area: 20.5 cm2 RA long axis: 4.1 cm LA A4 area: 13.8 cm2 RA area: 13.0 cm2 LA length (vol): 3.9 cm RA vol: 34.8 ml LA vol: 60.9 ml RA : 18.3 ml/m2 LA vol index: 32.0 ml/m2 IVC diam: 1.1 cm RVD1 (basal): 3.7 cm RVD2 (mid): 3.1 cm TAPSE: 1.8 cm Doppler Measurements & Calculations Ao V2 max: 126.6 cm/sec LVOT Max Gibson: 130.9 cm/sec Ao V2 mean: 88.2 cm/sec LV V1 max P.9 mmHg Ao max P.4 mmHg LV V1 VTI: 29.9 cm Ao mean P.4 mmHg PAOLA(I,D): 3.6 cm2 Ao V2 VTI: 26.2 cm PAOLA(V,D): 3.3 cm2 sev ratio: 1.1 PAOLA indexed to BSA (cm^2/m^2): 1.9 MV E max gibson: 82.8 cm/sec PA V2 max: 106.2 cm/sec MV A max gibson: 102.5 cm/sec PA V2 mean: 80.9 cm/sec MV E/A: 0.81 PA mean P.8 mmHg Med Peak E' Gibson: 4.0 cm/sec PA pr(Accel): 27.6 mmHg E/E' med: 20.6 Lat Peak E' Gibson: 6.4 cm/sec E/E' lat: 12.9 E/e' average: 16.8 MV dec time: 0.23 sec SVLVOT): 94.3 ml Reading Physician:09:50 PM
== END ==
PROVIDERS: PCP Family Medicine; Referring Provider Internal Medicine; Visit Provider Internal Medicine
DX: I34.0 Nonrheumatic mitral (valve) insufficiency (principal); D47.2 Monoclonal gammopathy
CPT/HCPCS: 93306; 93356

== ENCOUNTER → 2024-02-28 08:43 | Outpatient (CLI) | payer MEDICARE, OTHER, SELFPAY ==
[2024-02-28 10:02] LABS: INR 2.6 (0.9-1.3); Prothrombin Time 30.4 SECONDS (9.4-12.5)
== END ==
PROVIDERS: PCP Family Medicine; Referring Provider Family Medicine; Visit Provider Family Medicine
DX: I82.409 Acute embolism and thrombosis of unspecified deep veins of unspecified lower extremity (principal)
CPT/HCPCS: 36415; 85610

== ENCOUNTER → 2024-03-06 09:45 | Outpatient (CLI) | payer MEDICARE, OTHER, SELFPAY ==
[2024-03-06 10:16] LABS: Estimated Glomerular Filt Rate > 60 mL/min (>60)
--- NOTE | 2024-03-06 10:25 | DI.CT.S_ITS ---
PROCEDURE: CT ANGIO CHEST PE PROTOCOL INDICATIONS: MULTIPLE MYELOMA/HELTON/PALPS TECHNIQUE: After the administration of intravenous contrast, 2 mm thick sections acquired from the pulmonary apices to the posterior costophrenic angles. MIP reformats of the arterial vasculature were utilized. For radiation dose reduction, the following was used: automated exposure control, adjustment of mA and/or kV according to patient size. COMPARISON: [facility], CR, CHEST 2 VIEW, 09/24/2014, 9:33. [facility], CT, CT CHEST W CON, 04/27/2023, 8:40. FINDINGS: Cardiovascular and Mediastinum: Heart size is enlarged. No evidence of thoracic aortic aneurysm. Pulmonary vasculature is on the right is unremarkable. On the left, the left main pulmonary artery is diminutive, and terminates before the 1st branch. No evidence of pulmonary embolism. There is an anomalous vessel arising from the descending aorta on image 6/51 giving rise to a focal aneurysm measuring 1.1 cm, and several collateral vessels feeding the left lung Additionally, there is prominent azygos venous return associated with hepatic IVC hypoplasia/aplasia. Lungs and Pleural Spaces: Significant left lung volume loss with displacement of the mediastinum to the left. There is aerated lung with diffuse interstitial prominence in pleural plaquing calcified on posteriorly. Right lung is hyperinflated. No suspicious pulmonary nodule. There is nevertheless geographic ground-glass opacity noted in both lungs, increased from the prior. Scarring right lung apex remains unchanged Lymph Nodes: No mediastinal, hilar or axillary adenopathy. Musculoskeletal: No evidence of rib fracture. Thoracic spine unremarkable. Chest wall and sternum intact. No lytic or blastic lesions. Upper abdomen: Visualized portions of the liver, spleen and kidneys are unremarkable. IMPRESSION: 1. 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 Differential would include chronic sequelae of advanced lung disease. No change from prior CT. Compensatory right lung hyperinflation 2. 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 Increased ground-glass opacity of both lungs in cessation with cardiomegaly may reflect pulmonary edema. 4. 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 on 03/06/2024 at 16:54
== END ==
LOC: CT 09:46
PROVIDERS: Radiology Diagnostic Radiology; PCP Family Medicine; Referring Provider Internal Medicine; Visit Provider Internal Medicine
DX: I72.8 Aneurysm of other specified arteries (principal); C90.00 Multiple myeloma not having achieved remission; J92.9 Pleural plaque without asbestos; I51.7 Cardiomegaly; R06.09 Other forms of dyspnea; R00.2 Palpitations; Z79.01 Long term (current) use of anticoagulants
CPT/HCPCS: 36415; 71275; 82565; Q9967

== ENCOUNTER → 2024-05-15 09:00 | Outpatient (CLI) | payer MEDICARE, OTHER, SELFPAY ==
[2024-05-15 11:10] LABS: INR 3.5 (0.9-1.3); Prothrombin Time 40.5 SECONDS (9.4-12.5)
== END ==
PROVIDERS: PCP Family Medicine; Referring Provider Family Medicine; Visit Provider Family Medicine
DX: D68.51 Activated protein C resistance (principal); Z79.01 Long term (current) use of anticoagulants
CPT/HCPCS: 36415; 85610

== ENCOUNTER 2024-06-24 13:31 | Emergency (ER) | payer MEDICARE, OTHER, SELFPAY ==
[2024-06-24] VITALS (13 sets, daily range): BP systolic 115–160; BP diastolic 58–79; PULSE 72–89; RESP 15–24; TEMP 37.1–38.4; O2SAT 92–99; BMI 22.3
[2024-06-24 14:02] LABS: Add Manual Diff / Slide Review NO; Basophils Absolute Auto 100 /uL (0-100); Basophils Percent Auto 1.6 % (0-2); Eosinophils Absolute Auto 100 /uL (0-450); Eosinophils Percent Auto 2.5 % (2-4); Hematocrit 32.8 % (41-53); Hemoglobin 11.3 g/dL (13.5-17.5); Lymphocytes Absolute Auto 300 /uL (1100-4500); Lymphocytes Percent Auto 6.1 % (25-40); Mean Corpuscular HGB Conc 34.4 % (30-36); Mean Corpuscular Hemoglobin 31.2 PG (26-34); Mean Corpuscular Volume 90.9 fL (80-100); Monocytes Absolute Auto 1000 /uL (0-900); Monocytes Percent Auto 20.6 % (3-14); Neutrophils Absolute Auto 3300 /uL (1500-7000); Neutrophils Percent Auto 69.2 % (50-75); Platelet Count 174 X10^3/uL (150-400); Red Blood Cell Count 3.61 X10^6/uL (4.5-5.9); Red Cell Distribution Width 19.3 % (11.6-14.8); White Blood Cell Count 4.8 X10^3/uL (4.5-11.0)
[2024-06-24 14:12] LABS: Blood Urea Nitrogen 19 mg/dL (9-20); Calcium 8.4 mg/dL (8.4-10.2); Carbon Dioxide 27 mmol/L (22-32); Chloride 100 mmol/L (98-107); Estimated Glomerular Filt Rate > 60 mL/min (>60); Glucose 116 mg/dL (80-110); HEMOLYSIS < 15 (0-50); Potassium 3.9 mmol/L (3.4-5.1); Sodium 131 mmol/L (137-145)
[2024-06-24 14:42] LABS: Adenovirus Not Detected (Not Detect); B. parapertussis Not Detected (Not Detecte); Bordetella pertussis Not Detected (Not Detect); Chlamydophila pneumoniae Not Detected (Not Detect); Coronavirus 229E Not Detected (Not Detect); Coronavirus HKU1 Not Detected (Not Detect); Coronavirus NL 63 Not Detected (Not Detect); Coronavirus OC43 Not Detected (Not Detect); Human Metapneumovirus Not Detected (Not Detect); Human Rhinovirus/Enterovirus Not Detected (Not Detect); Influenza A Not Detected (Not Detect); Influenza B Not Detected (Not Detect); Mycoplasma pneumoniae Not Detected (Not Detect); Parainfluenza Virus 1 Not Detected (Not Detect); Parainfluenza Virus 2 Not Detected (Not Detect); Parainfluenza Virus 3 Not Detected (Not Detect); Parainfluenza Virus 4 Not Detected (Not Detect); Respiratory Syncytial Virus Not Detected (Not Detect)
[2024-06-24 14:43] LABS: SARS- CoV-2 Detected (Not Detecte)
--- NOTE | 2024-06-24 14:51 | DI.RAD.S_ITS ---
PROCEDURE: XR CHEST 2V INDICATIONS: COVID +, diminished LS on the left TECHNIQUE: 2 views of the chest were acquired. COMPARISON: [facility], CT, CT ANGIO CHEST PE PROTOCOL, 03/06/2024, 10:32. [facility], CR, XR CHEST 2V, 04/07/2023, 10:04. [facility], CR, XR CHEST 2V, 03/01/2022, 10:28. FINDINGS: Surgical changes and devices: None. Lungs and pleura: Moderately prominent interstitium, with chronic appearing volume loss and reticular changes in the left lung. Small left pleural effusion. Mediastinum: Cardiomediastinal contours are unchanged. Borderline heart size. Left pleural placed calcification. Bones and chest wall: Degenerative changes IMPRESSION: Chronic findings of interstitial prominence and fibrosis, worse on the left, with volume loss of the left hemithorax. A superimposed infectious or edematous process is possible. Consider surveillance imaging Dictated by: Tommie Avila M.D. on 06/24/2024 at 15:29 Approved by: Tommie Avila M.D. on 06/24/2024 at 15:31
[2024-06-24] MEDS: ACETAMINOPHEN 325 MG TABLET 975 MG PO (15:58)
--- NOTE | 2024-06-24 19:18 | ED.FEVER ---
HPI - Fever <Vida Hartley PA-C - Last Filed: 06/24/24 19:33> General Chief Complaint: Fever Stated Complaint: Days-long Fever, was 102+ Time Seen by Provider: 06/24/24 15:51 Source: patient Mode of arrival: Ambulatory History of Present Illness HPI Narrative: 63-year-old male with past medical history multiple myeloma, on chemotherapy currently presents to the ED with 6 days of fever, cough. Patient states that he had a few episodes of vomiting and diarrhea. Patient denies chills, chest pain, shortness of breath lightheadedness, dizziness, syncope. Patient called his oncologist this morning, was sent to the ED for further evaluation. Related Data Home Medications Medication Instructions Recorded Confirmed acetaminophen 325 mg capsule 650 mg PRN PRN Back Pain 01/11/21 12/23/23 (Tylenol) Ernie: D-5,000 1 tab PO DAILY 05/19/21 12/23/23 Ernie: Glustathione-SR 1 tab PO DAILY 05/19/21 12/23/23 Ernie: Men's Multi 2 tab PO DAILY 05/19/21 12/23/23 Ernie: Milk Thistle Phytosome 1 tab PO DAILY 05/19/21 12/23/23 Previous Rx's Medication Instructions Recorded warfarin 5 mg tablet See Rx Instructions .Route 11/03/23 .COMPLEX #96 tabs thyroid (pork) 65 mg tablet 65 mg PO DAILY #90 tabs 11/17/23 baclofen 5 mg tablet 5 mg PO TID #20 tabs 12/23/23 amoxicillin 875 mg-potassium 1 tab PO Q12H 10 days #20 tabs 06/24/24 clavulanate 125 mg tablet Allergies Allergy/AdvReac Type Severity Reaction Status Date / Time No Known Drug Allergies Allergy Verified 06/24/24 13:40 Review of Systems <iVda Hartley PA-C - Last Filed: 06/24/24 19:33> Constitutional Constitutional: Reports body ache(s), Denies chills, Denies fatigue, Reports fever(s), Denies frequent falls, Denies lethargy, Reports poor appetite and Denies weakness Eyes Eyes: Denies change in vision, Denies eye discharge, Denies irritation and Denies loss of vision ENT Ears, Nose, Mouth, and Throat: Denies change in voice, Denies dizziness, Denies neck pain, Denies sore throat and Denies throat swelling Cardiovascular Cardiovascular: Denies chest pain, Denies irregular heart rhythm, Denies lightheadedness, Denies palpitations, Denies dyspnea, Denies dyspnea on exertion and Denies orthopnea Respiratory Respiratory: Reports cough, Denies dyspnea, Denies dyspnea on exertion and Denies wheezing Gastrointestinal Gastrointestinal: Denies abdominal pain, Denies change in bowel habits, Reports diarrhea, Denies nausea and Reports vomiting Musculoskeletal Musculoskeletal: Denies neck pain and Denies numbness Integumentary/Breasts Skin/Breast: Denies pruritus, Denies erythema, Denies rash and Denies wounds Neurologic Neurologic: Denies behavioral changes, Denies confusion, Denies dizziness, Denies frequent falls, Denies loss of vision, Denies numbness and Denies weakness Psychiatric Psychiatric: Denies anxiety, Denies behavioral changes, Denies confusion, Denies depression, Denies homicidal ideation and Denies suicidal ideation Endocrine Endocrine: Denies fatigue, Denies flushing and Denies palpitations Hematologic/Lymphatic Hematologic/Lymphatic: Denies easy bruising Allergic/Immunologic Allergic/Immunologic: Denies urticaria, Denies throat swelling and Denies wheezing Patient History <Vida Hartley PA-C - Last Filed: 06/24/24 19:33> Medical History (Updated 06/24/24 @ 17:55 by Vida Hartley PA-C) Heart murmur Nodule of right lung Restrictive lung disease Insomnia History of COVID-19 Factor V Leiden mutation (~2007) Seasonal allergies Low back pain Chronic back pain (~1979) Anemia (~2007) Malabsorption Hemorrhoids Low testosterone (~2007) DVT (deep venous thrombosis) (~2006) Surgical History Anesthesia Status post bypass gastrojejunostomy (~11/04/05) Gynecomastia (~1997) Status post hemorrhoidectomy (~2012) Status post thoracotomy (~1963) Status post laminectomy (~1997) Family History Father Age: 87 Tobacco abuse Alcohol abuse Prostate cancer Mother Age: 86 Parkinsons Blepharospasm Osteoarthritis Arias's palsy Leukemia Macular degeneration Grandfather Stroke Sister Age: 64 Stroke Crohn disease Family/Other No problems noted. Social History Smoking Status: Never smoker Smoking Status: Never smoker alcohol intake frequency: 0-2 drinks per day Substance Use Type: does not use Exam <Vida Hartley PA-C - Last Filed: 06/24/24 19:33> Narrative Exam Narrative: Const General:?cooperative, healthy appearing and comfortable HENCT Head:?normal to inspection Ears:?hearing grossly normal bilaterally Nose:?external nose normal Face and sinus:?normal facial exam and sinuses nontender Mouth:?oral mucosae normal Throat:?posterior oropharynx normal Eyes General:?appearance normal, both eyes and all related structures Neck Neck:?normal visual inspection and no lymphadenopathy noted Resp Effort & Inspection:?normal respiratory effort Auscultation:?clear to auscultation bilaterally Cardio Rate:?regular rate Rhythm:?regular rhythm Neuro General:?patient alert, patient awake and patient oriented x3 Initial Vital Signs Initial Vital Signs: Vital Signs Temperature 101.1 F H 06/24/24 13:35 Pulse Rate 89 06/24/24 13:35 Respiratory Rate 18 06/24/24 13:35 Blood Pressure 136/67 06/24/24 13:35 Pulse Oximetry 97 06/24/24 13:35 Oxygen Delivery Method Room Air 06/24/24 13:35 <Allyson Montano DO - Last Filed: 06/25/24 07:51> Initial Vital Signs Initial Vital Signs: Vital Signs Temperature 101.1 F H 06/24/24 13:35 Pulse Rate 89 06/24/24 13:35 Respiratory Rate 18 06/24/24 13:35 Blood Pressure 136/67 06/24/24 13:35 Pulse Oximetry 97 06/24/24 13:35 Oxygen Delivery Method Room Air 06/24/24 13:35 Course <Vida Hartley PA-C - Last Filed: 06/24/24 19:33> Orders Ordered: Discontinued Medications Acetaminophen (Acetaminophen 325 Mg Tablet) 975 mg PO NOW ONE Stop: 06/24/24 15:52 Last Admin: 06/24/24 15:58 Dose: 975 mg Documented By: SB Vital Signs Vital signs: Vital Signs - 8 hr 06/24/24 13:35 06/24/24 14:42 06/24/24 14:43 Temperature 101.1 F H Pulse Rate 89 82 Respiratory Rate 18 Blood Pressure 136/67 142/74 H Pulse Oximetry 97 97 Oxygen Delivery Method Room Air 06/24/24 14:43 06/24/24 15:03 06/24/24 15:06 Temperature Pulse Rate 82 85 80 Respiratory Rate 21 Blood Pressure Pulse Oximetry 97 92 99 Oxygen Delivery Method 06/24/24 15:06 06/24/24 15:30 06/24/24 15:30 Temperature Pulse Rate 79 Respiratory Rate 18 Blood Pressure 160/76 H 143/79 H Pulse Oximetry 99 Oxygen Delivery Method 06/24/24 15:58 06/24/24 16:00 06/24/24 16:00 Temperature 100.1 F H Pulse Rate 80 Respiratory Rate 17 Blood Pressure 154/67 H Pulse Oximetry 99 Oxygen Delivery Method 06/24/24 16:30 06/24/24 16:30 06/24/24 17:00 Temperature Pulse Rate 81 Respiratory Rate 17 Blood Pressure 120/60 115/58 L Pulse Oximetry 98 Oxygen Delivery Method 06/24/24 17:00 06/24/24 17:01 06/24/24 17:30 Temperature 98.8 F Pulse Rate 80 Respiratory Rate 15 Blood Pressure 127/73 Pulse Oximetry 97 Oxygen Delivery Method 06/24/24 17:30 06/24/24 18:05 Temperature Pulse Rate 72 78 Respiratory Rate 24 20 Blood Pressure 128/64 Pulse Oximetry 96 96 Oxygen Delivery Method Room Air Room Air <Allyson Montano, - Last Filed: 06/25/24 07:51> Orders Ordered: Discontinued Medications Acetaminophen (Acetaminophen 325 Mg Tablet) 975 mg PO NOW ONE Stop: 06/24/24 15:52 Last Admin: 06/24/24 15:58 Dose: 975 mg Documented By: SB Vital Signs Vital signs: Vital Signs - 8 hr 06/24/24 13:35 06/24/24 14:42 06/24/24 14:43 Temperature 101.1 F H Pulse Rate 89 82 Respiratory Rate 18 Blood Pressure 136/67 142/74 H Pulse Oximetry 97 97 Oxygen Delivery Method Room Air 06/24/24 14:43 06/24/24 15:03 06/24/24 15:06 Temperature Pulse Rate 82 85 80 Respiratory Rate 21 Blood Pressure Pulse Oximetry 97 92 99 Oxygen Delivery Method 06/24/24 15:06 06/24/24 15:30 06/24/24 15:30 Temperature Pulse Rate 79 Respiratory Rate 18 Blood Pressure 160/76 H 143/79 H Pulse Oximetry 99 Oxygen Delivery Method 06/24/24 15:58 06/24/24 16:00 06/24/24 16:00 Temperature 100.1 F H Pulse Rate 80 Respiratory Rate 17 Blood Pressure 154/67 H Pulse Oximetry 99 Oxygen Delivery Method 06/24/24 16:30 06/24/24 16:30 06/24/24 17:00 Temperature Pulse Rate 81 Respiratory Rate 17 Blood Pressure 120/60 115/58 L Pulse Oximetry 98 Oxygen Delivery Method 06/24/24 17:00 06/24/24 17:01 06/24/24 17:30 Temperature 98.8 F Pulse Rate 80 Respiratory Rate 15 Blood Pressure 127/73 Pulse Oximetry 97 Oxygen Delivery Method 06/24/24 17:30 06/24/24 18:05 Temperature Pulse Rate 72 78 Respiratory Rate 24 20 Blood Pressure 128/64 Pulse Oximetry 96 96 Oxygen Delivery Method Room Air Room Air MDM - Fever <Vida Hartley PA-C - Last Filed: 06/24/24 19:33> Lab Data 06/24/24 13:45 06/24/24 13:45 Labs: Lab Results 06/24/24 Range/Units 13:45 WBC 4.8 (4.5-11.0) X10^3/uL RBC 3.61 L (4.5-5.9) X10^6/uL Hgb 11.3 L (13.5-17.5) g/dL Hct 32.8 L (41-53) % MCV 90.9 (80-100) fL MCH 31.2 (26-34) PG MCHC 34.4 (30-36) % RDW 19.3 H (11.6-14.8) % Plt Count 174 (150-400) X10^3/uL Neut % (Auto) 69.2 (50-75) % Lymph % (Auto) 6.1 L (25-40) % Tyler % (Auto) 20.6 H (3-14) % Eos % (Auto) 2.5 (2-4) % Baso % (Auto) 1.6 (0-2) % Neut # (Auto) 3300 (0755-3858) /uL Lymph # (Auto) 300 L (4944-3801) /uL Tyler # (Auto) 1000 H (0-900) /uL Eos # (Auto) 100 (0-450) /uL Baso # (Auto) 100 (0-100) /uL Sodium 131 L (137-145) mmol/L Potassium 3.9 (3.4-5.1) mmol/L Chloride 100 (98-107) mmol/L Carbon Dioxide 27 (22-32) mmol/L BUN 19 (9-20) mg/dL Creatinine 0.95 (0.66-1.25) mg/dL Estimated GFR > 60 (>60) mL/min BUN/Creatinine Ratio 20.0 (6-22) Glucose 116 H (80-110) mg/dL Calcium 8.4 (8.4-10.2) mg/dL Chlamy pneumoniae PCR Not detected (Not Detect) Adenovirus (PCR) Not detected (Not Detect) B.parapertussis DNA PCR Not detected (Not Detecte) Coronavirus OC43 (PCR) Not detected (Not Detect) Coronavirus HKU1 (PCR) Not detected (Not Detect) Coronavirus 229E (PCR) Not detected (Not Detect) SARS-CoV-2 (PCR) Detected H (Not Detecte) Coronavirus NL63 (PCR) Not detected (Not Detect) Human Metapneumovir PCR Not detected (Not Detect) Influenza Type A (PCR) Not detected (Not Detect) Influenza Type B (PCR) Not detected (Not Detect) M. pneumoniae (PCR) Not detected (Not Detect) Parainfluenza 1 (PCR) Not detected (Not Detect) Parainfluenza 2 (PCR) Not detected (Not Detect) Parainfluenza 3 (PCR) Not detected (Not Detect) Parainfluenza 4 (PCR) Not detected (Not Detect) RSV (PCR) Not detected (Not Detect) Entero/Rhino (PCR) Not detected (Not Detect) Urine Dip Bedside Urine Glucose Negative Bedside Urine Bilirubin - Negative Bedside Urine Ketone - Negative Urine Specific [place] 1.015 Bedside Urine Occult Blood +/- Bedside Urine pH 6.0 Bedside Urine Protein + 30 Bedside Urine Urobilinogen - Negative Bedside Urine Nitrite - Negative Bedside Urine Leukocytes - Negative Esterase MDM Narrative Medical decision making narrative: 63-year-old male with past medical history multiple myeloma, on chemotherapy currently presents to the ED with 6 days of fever, cough. Concern for URI versus pneumonia versus neutropenic fever versus other. Labs within normal limits. Respiratory swab positive for COVID-19. Not neutropenic fever. Chest x-ray shows possible pneumonia. Prescribed antibiotics. Recommend follow-up up with Oncology. ED return precautions discussed with patient. Patient verbalized understanding. Medical records reviewed: Yes <Allyson Montano, - Last Filed: 06/25/24 07:51> Lab Data Labs: Lab Results 06/24/24 Range/Units 13:45 WBC 4.8 (4.5-11.0) X10^3/uL RBC 3.61 L (4.5-5.9) X10^6/uL Hgb 11.3 L (13.5-17.5) g/dL Hct 32.8 L (41-53) % MCV 90.9 (80-100) fL MCH 31.2 (26-34) PG MCHC 34.4 (30-36) % RDW 19.3 H (11.6-14.8) % Plt Count 174 (150-400) X10^3/uL Neut % (Auto) 69.2 (50-75) % Lymph % (Auto) 6.1 L (25-40) % Tyler % (Auto) 20.6 H (3-14) % Eos % (Auto) 2.5 (2-4) % Baso % (Auto) 1.6 (0-2) % Neut # (Auto) 3300 (9925-7351) /uL Lymph # (Auto) 300 L (3785-7169) /uL Tyler # (Auto) 1000 H (0-900) /uL Eos # (Auto) 100 (0-450) /uL Baso # (Auto) 100 (0-100) /uL Sodium 131 L (137-145) mmol/L Potassium 3.9 (3.4-5.1) mmol/L Chloride 100 (98-107) mmol/L Carbon Dioxide 27 (22-32) mmol/L BUN 19 (9-20) mg/dL Creatinine 0.95 (0.66-1.25) mg/dL Estimated GFR > 60 (>60) mL/min BUN/Creatinine Ratio 20.0 (6-22) Glucose 116 H (80-110) mg/dL Calcium 8.4 (8.4-10.2) mg/dL Chlamy pneumoniae PCR Not detected (Not Detect) Adenovirus (PCR) Not detected (Not Detect) B.parapertussis DNA PCR Not detected (Not Detecte) Coronavirus OC43 (PCR) Not detected (Not Detect) Coronavirus HKU1 (PCR) Not detected (Not Detect) Coronavirus 229E (PCR) Not detected (Not Detect) SARS-CoV-2 (PCR) Detected H (Not Detecte) Coronavirus NL63 (PCR) Not detected (Not Detect) Human Metapneumovir PCR Not detected (Not Detect) Influenza Type A (PCR) Not detected (Not Detect) Influenza Type B (PCR) Not detected (Not Detect) M. pneumoniae (PCR) Not detected (Not Detect) Parainfluenza 1 (PCR) Not detected (Not Detect) Parainfluenza 2 (PCR) Not detected (Not Detect) Parainfluenza 3 (PCR) Not detected (Not Detect) Parainfluenza 4 (PCR) Not detected (Not Detect) RSV (PCR) Not detected (Not Detect) Entero/Rhino (PCR) Not detected (Not Detect) Urine Dip Bedside Urine Glucose Negative Bedside Urine Bilirubin - Negative Bedside Urine Ketone - Negative Urine Specific [place] 1.015 Bedside Urine Occult Blood +/- Bedside Urine pH 6.0 Bedside Urine Protein + 30 Bedside Urine Urobilinogen - Negative Bedside Urine Nitrite - Negative Bedside Urine Leukocytes - Negative Esterase Discharge Plan Departure Patient Disposition: Home Clinical Impression: COVID-19 Instructions: COVID-19 Activity Restrictions/Additional Instructions: You were evaluated in the ED today for a fever. Your labs were normal. You did test positive for COVID-19. Your chest x-ray does show a possible pneumonia. You are being prescribed antibiotics for the next 10 days. Please take those as prescribed. Follow-up with your oncologist and PCP as soon as possible. Return to the ED if you have worsening symptoms including chest pain, shortness of breath. Prescriptions: New amoxicillin-pot clavulanate 875-125 mg tablet 1 tab PO Q12H 10 Days Qty: 20 0RF No Action baclofen 5 mg tablet 5 mg PO TID Qty: 20 0RF Rx Instructions: may cause drowsiness, do not drive with use and do not take with alcohol warfarin 5 mg tablet See Rx Instructions .ROUTE .COMPLEX Qty: 96 3RF Dose Instruction: take 1 AND 1/2 tablets by mouth ON WEDNESDAYS AND SATURDAYS then take 1 tablet by mouth ALL OTHER DAYS as directed BY YOUR DOCTOR Rx Instructions: take 1 AND 1/2 tablets by mouth ON WEDNESDAYS AND SATURDAYS then take 1 tablet by mouth ALL OTHER DAYS as directed BY YOUR DOCTOR Nature-Throid 65 mg tablet 65 mg PO DAILY Qty: 90 3RF Ernie: Glustathione-SR 1 tab PO DAILY Ernie: D-5,000 1 tab PO DAILY Ernie: Milk Thistle Phytosome 1 tab PO DAILY Ernie: Men's Multi 2 tab PO DAILY acetaminophen [Tylenol] 325 mg Capsule 650 mg PRN PRN (Reason: Back Pain) Referrals: Vesta Gu DO [Primary Care Provider] - Stand Alone Forms: Patient Portal/API ED Sign-out <Allyson Montano DO - Last Filed: 06/25/24 07:51> Cosign ED Attending Shannan Attestation: I was immediately available in the department for consultation.
== END 2024-06-24 18:06 | disposition home or self-care (01) ==
PROVIDERS: Emergency Medicine; Emergency Provider Student in an Organized Health Care Education/Training Program; PCP Family Medicine
DX: U07.1 COVID-19 (principal)
CPT/HCPCS: 36415; 71046; 80048; 81003; 85025; 87633; 99284

== ENCOUNTER → 2024-08-17 08:32 | Outpatient (CLI) | payer MEDICARE, OTHER, SELFPAY ==
[2024-08-17 10:08] LABS: Prothrombin Time 57.9 SECONDS (9.4-12.5)
== END ==
PROVIDERS: PCP Family Medicine; Referring Provider Family Medicine; Visit Provider Family Medicine
DX: Z79.01 Long term (current) use of anticoagulants (principal); D68.51 Activated protein C resistance; D47.2 Monoclonal gammopathy; I82.409 Acute embolism and thrombosis of unspecified deep veins of unspecified lower extremity
CPT/HCPCS: 36415; 85610

== ENCOUNTER → 2024-10-09 13:58 | Outpatient (CLI) | payer MEDICARE, OTHER, SELFPAY ==
[2024-10-09 15:53] LABS: Prothrombin Time 55.9 SECONDS (9.4-12.5)
[2024-10-09 15:58] LABS: INR 5.1 (0.9-1.3)
== END ==
PROVIDERS: PCP Family Medicine; Referring Provider Family Medicine; Visit Provider Family Medicine
DX: D68.51 Activated protein C resistance (principal); Z79.01 Long term (current) use of anticoagulants; I82.409 Acute embolism and thrombosis of unspecified deep veins of unspecified lower extremity
CPT/HCPCS: 36415; 85610

== ENCOUNTER → 2024-10-14 11:41 | Outpatient (CLI) | payer MEDICARE, OTHER, SELFPAY ==
[2024-10-14 13:21] LABS: Prothrombin Time 21.9 SECONDS (9.4-12.5)
== END ==
LOC: LAB 11:42
PROVIDERS: PCP Family Medicine; Referring Provider Family Medicine; Visit Provider Family Medicine
DX: I82.409 Acute embolism and thrombosis of unspecified deep veins of unspecified lower extremity (principal); Z79.01 Long term (current) use of anticoagulants; D68.51 Activated protein C resistance; R79.1 Abnormal coagulation profile
CPT/HCPCS: 36415; 85610

== ENCOUNTER → 2025-04-01 11:55 | Outpatient (CLI) | payer MEDICARE, OTHER, SELFPAY ==
[2025-04-01 12:55] LABS: INR 3.5 (0.9-1.3); Prothrombin Time 38.1 SECONDS (9.4-12.5)
[2025-04-01 13:04] LABS: Alanine Aminotransferase 23 IU/L (<50); Albumin 4.1 g/dL (3.5-5.0); Albumin Globulin Ratio 2.1 (1.0-2.8); Alkaline Phosphatase 84 U/L (38-126); Aspartate Aminotransferase 37 IU/L (17-59); BUN Creatinine Ratio 19.4 (6-22); Bilirubin Total 0.5 mg/dL (0.2-1.3); Blood Urea Nitrogen 20 mg/dL (9-20); Calcium 9.2 mg/dL (8.4-10.2); Carbon Dioxide 26 mmol/L (22-32); Chloride 104 mmol/L (98-107); Cholesterol 154 mg/dL (140-199); Estimated Glomerular Filt Rate > 60 mL/min (>60); Glucose 115 mg/dL (70-99); HDL Cholesterol 82 mg/dL (40-60); HEMOLYSIS < 15 (0-50); LDL Cholesterol Calculated 61 mg/dL (<100); Potassium 4.9 mmol/L (3.4-5.1); Sodium 137 mmol/L (137-145); Total Protein 6.1 g/dL (6.3-8.2); Triglycerides 56 mg/dL (35-150)
[2025-04-01 13:33] LABS: Prostate Specific Antigen Scrn 1.95 ng/mL (0.1-4.0)
[2025-04-01 13:34] LABS: TSH w/ Reflex to FT4 1.83 uIU/mL (0.47-4.68)
[2025-04-01 15:03] LABS: Hep C Virus Ab w/Reflex Quant NEGATIVE s/c (NEGATIVE)
[2025-04-02 17:08] LABS: Fecal Immunochemical Test Negative (Negative)
== END ==
PROVIDERS: PCP Family Medicine; Referring Provider Family Medicine; Visit Provider Family Medicine
DX: Z00.00 Encounter for general adult medical examination without abnormal findings (principal); I82.409 Acute embolism and thrombosis of unspecified deep veins of unspecified lower extremity; E03.9 Hypothyroidism, unspecified; Z12.5 Encounter for screening for malignant neoplasm of prostate; Z12.11 Encounter for screening for malignant neoplasm of colon; Z79.01 Long term (current) use of anticoagulants; D68.51 Activated protein C resistance
CPT/HCPCS: 36415; 80053; 80061; 82274; 84443; 85610; 86803; G0103